=== PATIENT | male | born 1950 | race African-American/Black ===

== ENCOUNTER → 2017-02-17 | Outpatient (CLI) | payer OTHER ==
[~2017-02-17] VITALS: Ht 162.6 cm; Wt 108.9 kg
[~2017-02-17] MED LIST: ALBUTEROL2.5 MG/0.5 INH; AMBIEN 5 MG TABL5 M1 PO; ANTIVERT25 MG PO; BENAZEPRIL HCL20 MG PO; CALCIUM 500 +1 EAC5 PO; CALCIUM 600 +1 EA14 PO; KLOR-CON 1010 MEQ PO; MAGNESIUM OXID400 MG PO; NAPROSYN500 MG PO; PANTOPRAZOLE SO40 M1 PO; ROXICODONE5 M2 PO; SYMBICORT80 MCG/4.1 INH; TRAMADOL 50 MG50 MG PO; VOLTAREN GEL 1100 G1 TOP; XANAX 0.5 MG0.5 MG PO; ZANAFLEX4 MG PO; ZOLOFT50 MG PO
--- NOTE | ~2017-02-17 | HPC ---
[facility] [place] [address] PAIN MANAGEMENT CONSULTATION Name: BRYSON OLIVA JR [id number] Admission: 02/17/17 Attend Phys: Axel Serra DO Discharge: Date of : 51 Report #: [id number] THIS REPORT FOR: //name// CC: Roderick Serra DATE OF SERVICE: 02/18/2017 The patient is a very pleasant 66-year-old gentleman, prior seen in the pain clinic on 07/02/2016, given a cervical epidural injection at that time, prior had had injection in April. The patient was doing very well, greater than 80% overall relief, though pain has begun to recur. The neck, right shoulder and arm has some paresthesia going into his fingers. Physical exam shows a pleasant 66-year-old gentleman, modestly obese with a BMI of 41.2 kilograms per meter squared, complaining of aching, burning, radiating pain with numbness, tingling in his neck, shoulders, left greater than right arm. Pain is exacerbated if he turns his neck too quickly. Blood pressure is 158/76, pulse 76, respirations 14, exhibits a positive Lhermitte's and had slight decreased right deltoid, triceps and biceps strength. He is right hand dominant. I reviewed his MRI, which is a little older than 1 year, December 2015. Findings do show C4-C5 to have some disk space narrowing, moderate bilateral facet changes, bilateral neural foraminal narrowing; C5-C6 notes some posterior ridging and spurring with the AP diameter of the canal within normal limits, there is some bilateral neural foraminal narrowing here. Again, fairly nominal findings on the MRI, but ongoing cervical radicular symptoms. With concern we elected to repeat a cervical epidural injection today, get a new MRI of the cervical spine and at the patient's request I am referring him to Neurosurgeon, Dr. Luan Martinez at [facility] for discussion, consideration for decompressive laminectomy as indicated though again I see no dramatic findings as such. ASSESSMENT: Symptomatic cervical radiculopathy by clinical exam. PROCEDURE: Cervical epidural injection under fluoroscopy. PROCEDURE NOTE: After written and informed consent was obtained including risk of dural puncture, spinal cord trauma, paralysis and increased pain, the patient was taken to the fluoroscopy suite and placed in the prone position, with appropriate abdominal bolstering, neck was flexed, palms under the thighs. Skin was prepped with ChloraPrep. Sterile draping was applied. Skin wheal with 1% Xylocaine was raised. A 22-gauge 3-1/2 inch epidural Tuohy needle was placed via a midline approach at the C7-T1 interspace, advanced under biplanar fluoroscopy using continuous loss of resistance. With appropriate loss of [address] [address] PAIN MANAGEMENT CONSULTATION Name: BRYSON OLIVA Room #: REG [facility] Zachary#: [id number] Admission: 02/17/17 Attend Phys: Axel Serra DO Discharge: Date of : 51 Report #: [id number] resistance at the expected depth on lateral view, the glass loss of resistance syringe was disconnected. A low volume extension tubing was connected to the needle and a 5 mL syringe. Negative aspiration for cerebrospinal fluid or blood was noted. A 1 mL of Omnipaque was injected which showed spread within the epidural space on biplanar fluoroscopy. This was followed with 80 mg of triamcinolone plus 1 mL of 1.5% preservative Xylocaine. Needle was withdrawn to the interspinous ligament, 0.5 mL of Xylocaine was used to flush the needle. The needle was then completely withdrawn. The area was cleansed. Band-Aid was applied. The patient was allowed to move off the procedure table and ambulated to the recovery room, monitored for an appropriate period of time, discharged in good and stable condition. <ELECTRONICALLY SIGNED> By: Axel Serar DO 02/18/17 1138 [id number] [id number] Axel Serra DO /nt
[2017-02-17 13:09] VITALS: BP 158/76
== END ==
LOC: PAIN 07:04
DX: M54.12 Radiculopathy, cervical region (principal); E66.01 Morbid (severe) obesity due to excess calories; Z68.41 Body mass index [BMI] 40.0-44.9, adult; I10 Essential (primary) hypertension; F32.9 Major depressive disorder, single episode, unspecified; F17.210 Nicotine dependence, cigarettes, uncomplicated

== ENCOUNTER → 2017-08-26 | Outpatient (CLI) | payer OTHER ==
[~2017-08-26] VITALS: Ht 162.6 cm; Wt 102.1 kg
[~2017-08-26] MED LIST changes: +OXYCODONE HCL10 MG PO
--- NOTE | ~2017-08-26 | HPC ---
[facility] [address] [place] [address] PAIN MANAGEMENT CONSULTATION Name: BRYSON OLIVA JR Room #: REG [facility]#: [id number] Admission: 08/26/17 Attend Phys: Axel Serra DO Discharge: Date of : 51 Report #: [id number] THIS REPORT FOR: //name// CC: Roderick Serra DATE OF SERVICE: 08/26/2017 The patient is a pleasant 66-year-old gentleman, prior seen for cervical radiculopathy. He was given cervical epidural injections in 2015, last injection was in January of this year. I referred him to Dr. Luan Martinez for further evaluation. The patient returns to pain clinic today. Notes he has an appointment to see Dr. Luan Martinez at [facility] on 09/06/2017 but has developed acute right hip and thigh pain without specific antecedent trauma and overuse. He notes the right hip pain is fairly significant, rates it a 6-7 on VAS. Chronic left shoulder and arm pain remains problematic, specifically with abduction. No numbness in the fingers but does have paresthesia in the top of the hand. Pain primarily left lateral forearm in the lateral epicondyle. PHYSICAL EXAMINATION: Shows 66-year-old gentleman, BMI is 38.6 kilograms per meter squared. Vital signs stable as noted in the EMR. Cervical range of motion is modestly limited. Positive Lhermitte's pain with left abduction. Does have some diffuse tenderness over the lateral upper but no point tenderness compatible with lateral epicondylitis. Does not have pain with resistance to left hand extension. Rises from chair using armrest, modestly antalgic gait. Lumbar flexion is limited. Right hip flexion strength is diminished compared to the left, this exacerbates pain. Patellar reflex is nominally diminished. Achilles reflexes are symmetric. Straight leg raise negative. DIAGNOSTIC STUDIES: I reviewed the old lumbar spine somewhat dated from 01/10/2016, the patient has multilevel lumbar spondylosis, most prominent L3-L4 and L5-S1. L3-L4 notes moderate right and moderate to severe left facet arthrosis, the left foraminal disk protrusion. Symptoms correlate today with a right L3 radicular pattern. More concerning is the MRI of cervical spine, which was obtained 04/19/2017. This was a study, which prompted me to refer him to Dr. Martinez. There was still noting at T3-T4 with a focal rounded signal abnormality causing some cord contact and possibly slight deformity of the left to midline. This was thought to be possibly meningioma. He also had bilateral neural foraminal narrowing at C4-C5, a right-sided narrowing at C6-C7 contralateral to the patient's left cervical radicular symptoms. ASSESSMENT #1: Symptomatic cervical radiculopathy by clinical exam and history, [address] [address] PAIN MANAGEMENT CONSULTATION Name: BRYSON OLIVA JR Room #: REG [facility] Zachary#: [id number] Admission: 08/26/17 Attend Phys: Axel Serra DO Discharge: Date of : 51 Report #: [id number] neuropathic pain component, requiring complex medication management. RECOMMENDATION: We will renew oxycodone increased from 5 to 10 mg q. 8 hours, limit 30 tablets. The patient encouraged to use lowest possible dose. I strongly recommend he follow up with Dr. Luan Martinez at the 09/06/2017 appointment. ASSESSMENT #2: Acute exacerbation of lumbar radiculopathy, right L3 pattern. RECOMMENDATIONS: Epidural injection under fluoroscopy today, right of midline at L3-L4. Follow up 2 weeks after a neurosurgical appointment. PROCEDURE NOTE: Lumbar epidural injection under fluoroscopy. PROCEDURE NOTE: After both written and informed consent to include risk of spinal cord damage, increased pain, weakness and dural puncture, the patient was taken to the fluoroscopy suite, placed in the prone position. After sterile prep and drape, a skin wheal with lidocaine was raised. A 4-1/2-inch 20-gauge Tuohy needle was inserted in the midline at L3-L4 with good loss to resistance. Negative aspiration for cerebrospinal fluid or blood was noted. Then 1 mL of Omnipaque under biplanar fluoroscopy showed good spread within the epidural space. This was followed with 80 mg of triamcinolone plus 1 mL of 1.5% preservative-free Xylocaine, 0.5 mL Xylocaine was then injected to flush the needle; it was removed. The patient was monitored for an appropriate period of time and discharged in good and stable condition. By: [id number] Axel Serra, /nt
[2017-08-26 14:04] VITALS: BP 132/84
== END | disposition home or self-care (01) ==
LOC: PAIN 07:34
DX: M54.16 Radiculopathy, lumbar region (principal); M54.12 Radiculopathy, cervical region; Z68.38 Body mass index [BMI] 38.0-38.9, adult; F17.200 Nicotine dependence, unspecified, uncomplicated

== ENCOUNTER → 2017-09-16 | Outpatient (CLI) | payer OTHER ==
[~2017-09-16] VITALS: Ht 162.6 cm; Wt 102.1 kg
--- NOTE | ~2017-09-16 | HPC ---
[facility] [place] [address] PAIN MANAGEMENT CONSULTATION Name: BRYSON OLIVA JR [facility]: [facility] [id number] Admission: 09/16/17 Attend Phys: Axel Serra DO Discharge: Date of : 51 Report #: [id number] THIS REPORT FOR: //name// CC: Roderick Serra DATE OF SERVICE: 09/16/2017 DATE OF SERVICE: 09/16/2017 HISTORY OF PRESENT ILLNESS: The patient is a very pleasant 66-year-old gentleman typically treated for both cervical and lumbar radicular symptoms, requires high risk complex medication management. He was last seen in the pain clinic 08/26/2017. We were addressing lumbar issues at that time, patient had a single lumbar epidural injection at L3-L4 for right L3 radicular pain. He returns to pain clinic today noting that injection afforded very good relief, the patient notes 75% relief ongoing from the back and right leg pain. He does present with another complaint pain that being primarily neck, right shoulder and arm pain. We have addressed this in the past as well, in fact, the patient had cervical epidural injections in 2015, had a single cervical epidural injection in 01/2017 also with very good improvement of baseline pain. I did refer the patient to Dr. Luan Martinez for evaluation for a surgical opinion. Again, with both cervical and lumbar radicular symptoms, Dr. Martinez notes that the patient has had good relief with lumbar epidural injections for his radicular pain, he does have some narrowing at L4-L5 and L5-S1, but felt surgery could be eschewed at this time. Cervical radicular symptoms seemed to be fairly nominal at that presentation. Dr. Martinez had suggested as have I that he should consider lifestyle changes including smoking cessation and weight loss. Today, he is in the pain clinic noting ongoing pain, neck, right shoulder, arm. PHYSICAL EXAMINATION: Shows modestly positive Lhermitte's with pain going in the right shoulder, upper extremity strength is preserved. Cervical range of motion is modestly limited. DIAGNOSTIC STUDIES: Cervical MRI from 01/14/2016 does note cervical spondylosis, most severe at C4-C5, C5-C6 and C6-C7 with disk space narrowing at C6-C7. [address] [address] PAIN MANAGEMENT CONSULTATION Name: BRYSON OLIVA Room #: REG [facility] Zachary#: [id number] Admission: 09/16/17 Attend Phys: Axel Serra DO Discharge: Date of : 51 Report #: [id number] ASSESSMENT: 1. Symptomatic cervical radiculopathy by clinical exam and history. 2. Lumbar radiculopathy by history. 3. Complex medication management. Last visit, I provided the patient with a prescription for Oxycodone increased from 5 to 10 mg, limit 30 tablets. That prescription was 08/26/2017. He still has about half of those tablets left. Today, we did review an opiate consent to treat contract. I told the patient we will continue to provide medication for him, oxycodone 10 mg to be used on a nondaily basis. I did provide him with a prescription today for oxycodone 10 mg, dispensed 45 tablets, one tablet up to b.i.d. PROCEDURE: Cervical epidural steroid injection under fluoroscopy. PROCEDURE NOTE: After written and informed consent was obtained including risk of dural puncture, spinal cord trauma, paralysis and increased pain, the patient was taken to the fluoroscopy suite and placed in the prone position, with appropriate abdominal bolstering, neck was flexed, palms under the thighs. Skin was prepped with ChloraPrep. Sterile draping was applied. Skin wheal with 1% Xylocaine was raised. A 22-gauge 3-1/2 inch epidural Tuohy needle was placed via a midline approach at the C7-T1 interspace, advanced under biplanar fluoroscopy using continuous loss of resistance. With appropriate loss of resistance at the expected depth on lateral view, the glass loss of resistance syringe was disconnected. A low-volume extension tubing was connected to the needle and a 5 mL syringe. Negative aspiration for cerebrospinal fluid or blood was noted. A 1 mL of Omnipaque was injected which showed spread within the epidural space on biplanar fluoroscopy. This was followed with 80 mg of triamcinolone plus 1 mL of 1.5% preservative Xylocaine. Needle was withdrawn to the interspinous ligament, 0.5 mL of Xylocaine was used to flush the needle. The needle was then completely withdrawn. The area was cleansed. Band-Aid was applied. The patient was allowed to move off the procedure table and ambulated to the recovery room, monitored for an appropriate period of time, discharged in good and stable condition. <ELECTRONICALLY SIGNED> By: Axel Serra DO 09/19/17 0929 [id number] Axel Serra DO /nt
[2017-09-16 09:23] VITALS: BP 143/88
== END | disposition home or self-care (01) ==
LOC: PAIN 09-08 10:24
DX: M54.12 Radiculopathy, cervical region (principal); M54.16 Radiculopathy, lumbar region; Z79.891 Long term (current) use of opiate analgesic

== ENCOUNTER → 2017-11-02 | Outpatient (CLI) | payer OTHER ==
[~2017-11-02] VITALS: Ht 162.6 cm; Wt 103.4 kg
[~2017-11-02] MED LIST changes: +AMITRIPTYLINE H10 M3 PO
--- NOTE | ~2017-11-02 | HPC ---
[facility] [address] [place] [address] PAIN MANAGEMENT CONSULTATION Name: BRYSON OLIVA JR Room #: REG [facility]#: [id number] Admission: 11/02/17 Attend Phys: Aby Stinson MD Discharge: Date of : 51 Report #: [id number] THIS REPORT FOR: //name// CC: Aby Khan DATE OF SERVICE: 11/02/2017 FOLLOWUP HISTORY: The patient is a 67-year-old gentleman who has been seen in the pain clinic because of lumbar radiculopathy as well as cervical radiculopathy. He continues to be treated with a complex medication management. He returns today indicating that he had an epidural steroid injection, which was efficacious. At this juncture, he is having pain and discomfort, which is radiating down to the right low back area. He has returned today for an injection. He feels that past injections have been helpful and would like to proceed with another injection. PHYSICAL EXAMINATION: Blood pressure 123/73, pulse 81, respiratory rate 18, room air saturation is 94%. Height 5 feet 4 inches, weight 220 pounds, BMI is 39.1. The patient has pain and discomfort in the low back area with pain radiating down in the L4-L5 distribution. It involves his pain down into the right leg. He slept about 3 weeks ago as well as was pushing a heavy load while at work. This has caused his pain to flare up. He has a positive straight leg raise. Rates his pain as an 8/10 MEDICATIONS: Ambien 5 mg at bedtime, OxyIR 10 mg q.8h. p.r.n. as needed, meclizine 25 mg for vertigo, magnesium oxide 400 mg daily, calcium 600 mg b.i.d., potassium 10 mEq, Symbicort b.i.d., Lotensin 20 mg daily. IMPRESSION: 1. Lumbar radiculopathy with pain radiating down to the right L4-L5 distribution to the level of his knee 2. History of lumbar radiculopathy. 3. History of cervical radiculopathy. 4. Complex regional pain management program and affect. RECOMMENDATIONS: We discussed treatment options with the patient. At this juncture and after a detailed this explanation, we will proceed with an epidural steroid injection. Risks and benefits of the procedure were discussed with the patient. Possible complications of the procedure, which could include but are not limited to infection, increased muscle soreness, headache, bleeding and nerve trauma were discussed. The patient elects to proceed. PROCEDURE NOTE: The patient was placed in the [place] [address] PAIN MANAGEMENT CONSULTATION Name: BRYSON OLIVA [facility]: [facility] [id number] Admission: 11/02/17 Attend Phys: Aby Stinson MD Discharge: Date of : 51 Report #: [id number] used to identify the L4-L5 interspace. This area had been sterilely prepped with Betadine and infiltrated with 0.25% bupivacaine. Total of 80 mg Depo-Medrol, 40 mg triamcinolone and 2 mL of 0.25% bupivacaine was injected. The patient tolerated the procedure well. A total of 12 seconds fluoroscopy time was used. The patient's pain decreased to 2 at the time of discharge. He will follow up in the pain clinic as needed. We would like to thank you for letting us participate in his care. We hope he continues to improve. <ELECTRONICALLY SIGNED> By: Aby Stinson MD 11/10/17 0945 [id number] 1654 Aby Stinson MD /[facility]
[2017-11-02 09:15] VITALS: BP 123/73
== END | disposition home or self-care (01) ==
LOC: PAIN 07:09
DX: M54.16 Radiculopathy, lumbar region (principal); M54.12 Radiculopathy, cervical region; Z98.890 Other specified postprocedural states; F17.210 Nicotine dependence, cigarettes, uncomplicated; Z79.891 Long term (current) use of opiate analgesic; Z79.899 Other long term (current) drug therapy

== ENCOUNTER → 2017-12-22 | Outpatient (CLI) | payer OTHER ==
[~2017-12-22] VITALS: Ht 162.6 cm; Wt 105.1 kg
[~2017-12-22] MED LIST changes: +DILAUDID4 MG PO; +MEDROL DOSPAK21 TA1 PO; +PERCOCET 10-321 EACH PO; +VENTOLIN HFA 1818 GM INH
--- NOTE | ~2017-12-22 | HPC ---
[facility] [place] [address] PAIN MANAGEMENT CONSULTATION Name: BRYSON OLIVA JR [facility] [id number] Admission: 12/22/17 Attend Phys: Axel Serra DO Discharge: Date of : 51 Report #: [id number] THIS REPORT FOR: //name// CC: Roderick Serra The patient is a very pleasant 67-year-old gentleman who has been treated for symptomatic lumbar radiculopathy, component of cervical radiculopathy as well. Requires high risk complex medication management. He has had 3 epidural injections, 08/26/2017, 09/16/2017 and 11/02/2017. Ongoing lumbar radicular pain with specific symptoms radiating into the low back and right leg. I reviewed the MRI of the lumbar spine from 12/2015. He has moderate to severe right and severe left neural foraminal narrowing at L5-S1. He had seen Dr. Luan Martinez at [facility] who felt surgery may not have been indicated at that time. With ongoing radicular symptoms today, we talked about getting an EMG of the lower extremity. He seems to have ongoing pain and episodic weakness, which is concerning. PHYSICAL EXAMINATION: Shows a 67-year-old gentleman, BMI is elevated at 39.8 kilograms per meter squared. Vital signs are stable as noted in the EMR. Subjective pain is 4-5 on VAS but increases in the evening. He has not fallen in last 3 months, but he does have some problems with Vertigo. He takes meclizine p.r.n. Hypertensive, medicines were reconciled today. Chronic opiate consent to treat contract was signed 09/16/2017. Continue to smoke, was counseled regarding same. Comorbidities include history of hepatitis C, though well treated with Harvoni, history of cirrhosis contraindicating NSAID use. Moderately antalgic gait. Rises from chair using armrest. Diffuse tenderness across the low back, right leg. He has modestly positive straight leg raise and subtle decrease in strength, but not dramatic. The patient notes, however, episodically pain. The leg feels quite weak and he has actually nearly fallen several times. ASSESSMENT: Ongoing lumbar radiculopathies requiring complex medication management, concern for myelopathic symptoms, lower extremity. RECOMMENDATIONS: 1. EMG right lower extremity. 2. Continue baseline medication unchanged. We will rotate oxycodone to hydromorphone 4 mg b.i.d. (had been taking oxycodone 10 mg 1-2 at bedtime). We will trial a short course of Medrol Dosepak to help with the acute radicular symptoms. Follow up after the EMG for further evaluation. [address] [address] PAIN MANAGEMENT CONSULTATION Name: BRYSON OLIVA JR Room #: REG [facility]#: [id number] Admission: 12/22/17 Attend Phys: Axel Serra DO Discharge: Date of : 51 Report #: [id number] Discharged in good stable condition. <ELECTRONICALLY SIGNED> By: Axel Serra DO 12/26/17 0715 [id number] Axel Serra DO /nt
[2017-12-22 13:01] VITALS: BP 127/85
== END ==
LOC: PAIN 06:51
DX: M54.16 Radiculopathy, lumbar region (principal); M54.12 Radiculopathy, cervical region; Z79.899 Other long term (current) drug therapy

== ENCOUNTER → 2018-02-03 | Outpatient (CLI) | payer OTHER ==
[~2018-02-03] VITALS: Ht 162.6 cm; Wt 106.2 kg
--- NOTE | ~2018-02-03 | HPC ---
[facility] [address] [place] [address] PAIN MANAGEMENT CONSULTATION Name: BRYSON OLIVA JR Room #: REG [facility]#: [id number] Admission: 02/03/18 Attend Phys: Aby Stinson MD Discharge: Date of : 52 Report #: [id number] THIS REPORT FOR: //name// CC: Aby Khan DO DATE OF SERVICE: 02/03/2018 PRIMARY CARE PHYSICIAN: Roderick Khan DO FOLLOWUP COMPLAINT: Pain in the lower back down into the right hip and leg to the level of the knee. FOLLOWUP HISTORY: The patient is a 67-year-old gentleman who has been seen and followed in the Pain Clinic by Dr. Axel Serra. The patient has pain in the low back area, which radiates down into his leg. 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 He has undergone epidural steroid injections as well as cervical epidural steroid injections. He recently was out on the road. Had noted some worsening of his pain and discomfort. He finds that the pain is quite remarkable. Epidural steroid injections in the past in October were helpful. Because this pain has been so problematic, he returned to [place] for an additional injection. He rates the pain as a 4-5/10. Pain continues to increase as the day progresses. It involves his low back area with pain radiating into his right leg and down into his foot. He describes it as a stabbing pain with some numbness. Standing, lying down, turning, walking are problematic. He does drive an 18-chang. Sitting for a prolonged period of times exacerbates his discomfort. Denies any new bowel or bladder dysfunction. He feels that another injection would be helpful. ALLERGIES: NONSTEROIDAL ANTI-INFLAMMATORY MEDICATIONS AND ACETAMINOPHEN. CURRENT MEDICATIONS: 1. Dilaudid 4 mg 1 tablet at bedtime, 2100, may repeat if necessary. 2. Elavil 10 mg at bedtime. 3. Oxycodone IR 10 mg q. 8 hours p.r.n. 4. Ambien 5 mg at bedtime. 5. Antivert 25 mg as needed for vertigo. 6. Magnesium oxide daily. 7. Calcium. 8. Potassium 10 mEq. 9. Symbicort inhalation b.i.d. 10. Lotensin 20 mg daily. PAIN CLINIC ASSESSMENT: 1. History of osteoarthritis. The patient is not being treated for [facility] [address] [place] [address] PAIN MANAGEMENT CONSULTATION Name: BRYSON OLIVA JR Room #: REG [facility] Zachary#: [id number] Admission: 02/03/18 Attend Phys: Aby Stinson MD Discharge: Date of : 52 Report #: [id number] osteoarthritis or rheumatoid arthritis. 2. Height 5 feet 4 inches, weight 243 pounds, BMI is 40. 3. Vital signs: Blood pressure 139/85, pulse 95, respiratory rate 16, room air saturation 94%. 4. Pain intensity 4-5 with increasing pain as the evening progresses. 5. Risk of fall: The patient has not fallen in the last 3 months. He does have some diagnosis of vertigo. 6. Blood thinner: The patient is not on a blood thinner. 7. History of hypertension. The patient is being treated for hypertension. 8. Opioid contract: The patient does have an opioid contract with the Pain Clinic. 9. Risk assessment tool. 10. Functional assessment total. 11. Recreational drugs: The patient does not use recreational drugs. 12. Tobacco: The patient currently smokes tobacco, has been instructed that he would be better if he ceases smoking. 13. Alcohol: Denies frequent use of alcoholic beverages. PHYSICAL EXAMINATION: GENERAL: The patient is a well-developed, somewhat obese black male, appears his stated age. He is alert. ORIENTATION: The patient is alert and oriented x 3. AFFECT: His affect is appropriate. HEENT: Normocephalic, atraumatic. Extraocular eye muscles intact. NECK: Without adenopathy or bruits. CHEST: Lung sounds are distant. HEART: Regular rate. ABDOMEN: Protuberant. MUSCULOSKELETAL: Low back without significant kyphosis, scoliosis, or lordosis. EXTREMITIES: Upper extremity muscle strength 5/5. Lower extremities, the patient has pain and discomfort. Lower portion of his back, some right paraspinous muscle and left paraspinous muscle soreness. The patient has pain which is radiating down the posterior portion of his back in the distribution of the L4-L5 dermatomal area. IMPRESSION: 1. Lumbar radiculopathy with pain radiating down the L4-L5 distribution to the level of his knee and posterior portion of his leg going down into his foot. 2. History of lumbar radiculopathy. 3. History of cervical radiculopathy, stable at this juncture. 4. Complex regional pain management. RECOMMENDATIONS: We discussed treatment options with the patient. Risks and benefits of an epidural steroid injection were again reviewed. Possible complications were discussed. The patient elects to proceed. Due to the possibility of increased muscle soreness, bleeding, headache, muscle trauma, [facility] [address] [place] [address] PAIN MANAGEMENT CONSULTATION Name: BRYSON OLIVA JR Room #: REG [facility]AL[facility] Sharma#: [id number] Admission: 02/03/18 Attend Phys: Aby Stinson MD Discharge: Date of : 52 Report #: [id number] nerve trauma, and spinal headache were discussed. He agrees to proceed. PROCEDURE NOTE: The patient was assisted to getting on the examination table. His back was sterilely prepped with a Betadine solution. 0.25% bupivacaine was infiltrated into this area. Using anterior and posterior viewing with fluoroscopy, lateral viewing as well, the L4-L5 interspace was identified. A 17-gauge Tuohy with loss of resistance technique was used to gain access to the epidural space. There was no CSF, heme, or paresthesia. Total of 80 mg Depo-Medrol, 40 mg triamcinolone, and 2 mL of 0.25% bupivacaine was injected. The patient tolerated the procedure well. There were no complications. His pain decreased to 2-3 at the time of discharge. He will follow up in the future as needed. We would like to thank you for letting us participate in his care. We hope he continues to improve. <ELECTRONICALLY SIGNED> By: Aby Stinson MD 02/22/18 0816 [id number] 0149 Aby Stinson MD /nt
[2018-02-03 11:08] VITALS: BP 139/85
== END ==
LOC: PAIN 07:21
DX: M54.16 Radiculopathy, lumbar region (principal); G89.29 Other chronic pain; I10 Essential (primary) hypertension; M19.90 Unspecified osteoarthritis, unspecified site; F17.210 Nicotine dependence, cigarettes, uncomplicated; Z79.891 Long term (current) use of opiate analgesic; Z79.899 Other long term (current) drug therapy

== ENCOUNTER → 2018-02-20 | Outpatient (CLI) | payer OTHER ==
[~2018-02-20] VITALS: Ht 162.6 cm; Wt 107.0 kg
[~2018-02-20] MED LIST changes: -PERCOCET 10-321 EACH PO
--- NOTE | ~2018-02-20 | HPC ---
[facility] [place] [address] PAIN MANAGEMENT CONSULTATION Name: BRYOSN OLIVA JR [id number] Admission: 02/20/18 Attend Phys: Axel Serra DO Discharge: Date of : 52 Report #: [id number] THIS REPORT FOR: //name// CC: Roderick Serra DATE OF SERVICE: 02/20/2018 The patient is a pleasant 67-year-old gentleman typically treated by both Dr. Stinson and myself over a number of years for cervical and lumbar radicular pain. He had lumbar epidural injection with Dr. Stinson 02/03/2018 at L4-L5. He returns to pain clinic today for a prolonged visit. He was seen from 14:32 to approximately 15:05, greater than 50% of this 25+ minute visit was spent counseling the patient. He notes the injection afforded some 70% relief, but still has some ongoing pain if he walks for 2-5 minutes. 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 He unfortunately is sitting in his position of comfort; however, when he rises, he has pain in low back, right hip and gluteal area. Pain is exacerbated with standing and walking. Does note overall improvement following the injection. We had prior done a cervical epidural injection back in August for left cervical radicular symptoms which are somewhat recurring, although the presentation is a little unique. He states episodically he gets pain in the left elbow and left lateral forearm. It does not seem to be exacerbated by any particular activity, though he notes when driving, it does seem to be a little more problematic, but he had several episodes in the office. It is very transient and fleeting, has no weakness. We spent a prolonged period of time reviewing a very circuitous story. 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 I am not entirely certain that we were aware he was taking this agent. We tend to eschew concurrent use of soporific agents and opiates, though in the patient's case, it is clear that he does not take his opiates on a regular basis. He actually uses oxycodone fairly much on a p.r.n. basis, his last prescription for 45 oxycodone tablets 02/03/2018 (17 days ago, he has only used 10 tablets, he has 35 left). Prior prescription for hydromorphone 2 mg tablets, 60 tablets given 12/23/2017, now about 60 days ago, he still has 22 tablets left. He did stop taking Elavil as it caused him to feel hungover the following morning. He is very discouraged by the fact that his treating physician had stopped writing for his zolpidem. He did see Dr. Luan Martinez at [facility], he suggested no lumbar surgeries [address] [address] PAIN MANAGEMENT CONSULTATION Name: BRYSON OLIVA JR Room #: REG KAELYN Sharma#: [id number] Admission: 02/20/18 Attend Phys: Axel Serra DO Discharge: Date of : 52 Report #: [id number] required at this time; however, he did not evaluate for cervical radicular symptoms. PHYSICAL EXAMINATION: Today does show a 67-year-old gentleman, BMI is elevated at 40.5 kilograms per meter squared. Vital signs are generally stable as noted in the EMR. Subjective pain score is fairly nominal 2-3. Cervical range of motion is adequate. Upper extremity strength is generally preserved. Deep tendon reflexes are symmetric for the biceps, triceps, brachioradialis. Hand grasp is symmetric and Tinel's is negative. He does have subjective pain in the left lateral forearm. I cannot reproduce it. It does not appear to be lateral or medial epicondylitis. Rises from chair using armrest. Has a very significant endomorphic build and does have a fairly large ventral abdominal hernia, though appears to be a nonproblematic. Rises from chair using armrest. Gait is generally tandem. Lumbar flexion is limited. Has subjective pain in the right gluteal area. Modestly positive Joseph test on this side. Difficult to perform pelvic distraction due to girth, in fact difficult to perform Gaenslen's test due to rather robust abdominal girth. ASSESSMENT: Symptomatic lumbar radiculopathy by clinical exam and history, cervical radiculopathy by history, component of SI mediated pain in a gentleman with history of sleep apnea and sleep disorder. RECOMMENDATIONS: We will refer the patient to Dr. Butch Story for evaluation and the sleep study. May benefit from addition of Provigil and/or modafinil upon arising. 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 He is acutely aware of responsibilities of driving his truck and does not take any opiate analgesics within 6 hours of driving. He is very desirous of resuming zolpidem, though I told him I was not too enthused about prescribing this medication. Again, I will defer to Dr. Story as a sleep specialist. We did also order today an EMG of the left upper extremity. If there are any abnormal findings, we will refer back to Dr. Luan Martinez for consideration for surgical intervention. Otherwise, this may simply be a nuisance. The patient is not too enthusiastic about starting another agent (I mentioned a nerve stabilizing agent such as gabapentin). We have elected to renew hydromorphone 4 mg to be released in 1 week, he may take 1 tablet at bedtime if the pain disrupts sleep. I told him he can try going to sleep without this and he wakes in sleep, he can take it with caveat being it must be at least 4-6 hours prior to driving. [facility] [address] [place] [address] PAIN MANAGEMENT CONSULTATION Name: BRYSON OLIVA Room #: REG [facility]#: [id number] Admission: 02/20/18 Attend Phys: Axel Serra DO Discharge: Date of : 52 Report #: [id number] Discharged in stable condition after 25+ minute visit spent counseling the patient. By: [id number] Axel Serra DO /nt
[2018-02-20 14:02] VITALS: BP 129/90
== END ==
LOC: PAIN 07:24
DX: M54.16 Radiculopathy, lumbar region (principal); M54.12 Radiculopathy, cervical region; G47.30 Sleep apnea, unspecified

== ENCOUNTER → 2018-05-01 | Outpatient (CLI) | payer OTHER ==
[~2018-05-01] VITALS: Ht 162.6 cm; Wt 105.7 kg
[~2018-05-01] MED LIST changes: +PERCOCET 10-321 EACH PO
--- NOTE | ~2018-05-01 | HPC ---
[facility] [address] [place] [address] PAIN MANAGEMENT CONSULTATION Name: BRYSON OLIVA JR Room #: REG [facility] Zachary#: [id number] Admission: 05/01/18 Attend Phys: xAel Serra DO Discharge: Date of : 52 Report #: [id number] THIS REPORT FOR: //name// CC: Roderick Serra DATE OF SERVICE: 05/01/2018 HISTORY OF PRESENT ILLNESS: The patient is a 67-year-old gentleman being treated for chronic pain concerns including cervical and lumbar radicular issues. He has done well with occasional cervical and lumbar epidural injections, last lumbar injection was 02/03/2018. He had had 2 cervical epidural injections, 07/02/2016 and 09/16/2017. Last visit, 03/23/2018, we continued the patient on oxycodone 10 mg, dispensed #75 tablets, to take as needed for pain, limit 1-2 a day. Reviewing his medical record, he had started on oxycodone 5 mg back in early 2015. He was taking #20-30 tablets a month. Gradually, he started taking 2 at a time. I did write for 10 mg oxycodone around August 2017. He gradually started taking this a little more aggressively 1-2 at a time, so we rotated hydromorphone 4 mg trying to get a lower dose opiate. Ultimately, I have given him prescription for hydromorphone 4 mg #30 tablets at last visit and #75 of the oxycodone 10 mg. He has #10 of the hydromorphone left and #25 of the oxycodone left. He has ongoing multiple pain concerns. He complains of neck, left shoulder and arm pain. EMG was ultimately obtained, which by verbal report shows only carpal tunnel syndrome, left greater than right. No cervical radicular symptoms are noted. DIAGNOSTIC STUDIES: MRI of the cervical spine from 2017 had noted a small mass in the T3-T4 area, but really no dramatic left-sided radicular compromise was noted. Lumbar spine does note some significant narrowing at L5-S1, severe to moderate right and severe left neural foraminal stenosis. The patient tells me that he has had some "bowel incontinence," but on further reflection, he has no insensate incontinence per se. He states he has a sense of urgency and has normal bowel movements, but occasionally, notes that he still has a little stool right at the rectum. He has not had any "stool accidents." Similarly, he has no urinary incontinence (no insensate incontinence). He also tells me his left leg "gave out." On further discussion, he tells me he was standing, he went to step down off a curb stepping down with his left leg, he had a slight "give" and started to fall, a friend caught him. He was easily able to stand directly up and ambulate without weakness in the left leg. I do not think this is terribly neurologically significant. [address] [address] PAIN MANAGEMENT CONSULTATION Name: BRYSON OLIVA JR Room #: REG [facility] Sharma#: [id number] Admission: 05/01/18 Attend Phys: Axel Serra DO Discharge: Date of : 52 Report #: [id number] He does continue to smoke. He is an everyday smoker and he is morbidly obese with a BMI of 40 kilograms per meter squared. He was counseled regarding discontinue smoking and weight loss including dietary restriction and increased activity. PHYSICAL EXAMINATION: Notes a pleasant 67-year-old gentleman, BMI as noted is 40 kilograms per meter squared. Blood pressure is 152/85, pulse 74, respirations are 18. Alert and oriented to person, place, and time, judged to be a reasonable historian. Cervical range of motion is good. Upper extremity strength is preserved. Deep tendon reflexes are symmetric and 0-1/4. Tinel's is negative despite the EMG. Does have subjective paresthesia in the left hand with driving for any period of time. Rises from chair using armrest. Gait is tandem. Lower extremity strength is preserved. Straight leg raise negative. Has some diffuse axial back pain, no discrete trigger points noted. ASSESSMENT: Symptomatic chronic pain syndrome requiring complex medication management, history of cervical and lumbar radiculopathies, though really no acute radicular symptoms are noted at this time. RECOMMENDATIONS: I had a long discussion with the patient today about therapeutic options. He has a followup appointment scheduled with Dr. Hossein Swan to talk about sleep apnea concerns and swing shift type work with disruption of circadian rhythm. We again counseled the patient regarding smoking cessation. 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 He states he does not eat much throughout the day and then, he will start eating at 9 or 10:00 p.m. and admits to "binge" eating for hours. We talked about the utility of trying to eat 3 small meals a day, which may also help restore some of his circadian rhythm as well. Regarding opiate analgesics, we reviewed his slow opiate escalation over time. We elected to discontinue hydromorphone, he has about #10 tablets left. He can use these simply as needed. We will rotate back to oxycodone 10 mg utilizing only 1 tablet prior to exercise encouraging him to walk 20-30 minutes 3-4 times a week. He can use another tablet at bedtime if pain is quite severe. We will switch to Percocet 10/325 product hoping is a little synergy with the acetaminophen. I have written for Percocet 10/325, dispense #45 tablets with a 3-week release, have him follow up in 7 weeks with one of the Pain providers. I will be leaving the practice. Our goal is to wean off opiates, lose weight, discontinue smoking and hopefully, get the patient a little more functional overall. I told him if he has recurrence of radicular symptoms, we will be happy to evaluate for consideration for repeat lumbar or cervical epidural injection. [address] [address] PAIN MANAGEMENT CONSULTATION Name: BRYSON OLIVA [facility] [id number] Admission: 05/01/18 Attend Phys: Axel Serra DO Discharge: Date of : 52 Report #: [id number] Discharged in good stable condition. <ELECTRONICALLY SIGNED> By: Axel Serra DO 05/03/18 0800 [id number] [id number] Axel Serra DO /nt
[2018-05-01 12:32] VITALS: BP 152/85
== END ==
LOC: PAIN 07:22
DX: G89.29 Other chronic pain (principal); M54.5 Low back pain; M54.2 Cervicalgia; F11.90 Opioid use, unspecified, uncomplicated; F17.200 Nicotine dependence, unspecified, uncomplicated; Z79.899 Other long term (current) drug therapy

== ENCOUNTER → 2018-05-10 | Outpatient (CLI) | payer OTHER | LOC: RAD 15:11 | DX: J44.9 Chronic obstructive pulmonary disease, unspecified (principal) ==

== ENCOUNTER → 2018-10-06 | Outpatient (CLI) | payer OTHER ==
[~2018-10-06] VITALS: Ht 162.6 cm; Wt 116.3 kg
[~2018-10-06] MED LIST changes: +MOBIC15 MG PO
[2018-10-06 09:49] VITALS: BP 144/82
== END | disposition home or self-care (01) ==
LOC: PAIN 07:17
DX: M54.5 Low back pain (principal); F17.210 Nicotine dependence, cigarettes, uncomplicated; Z79.899 Other long term (current) drug therapy

== ENCOUNTER 2019-02-05 12:12 | Inpatient (IN) | payer OTHER ==
[~2019-02-05] VITALS: Ht 165.1 cm; Wt 111.1 kg
--- NOTE | ~2019-02-05 | HC ---
[facility] [place] [address] CONSULTATION Name: BRYSON OLIVA JR Room #: 218-P [facility] IN ..#: [id number] Admission: 02/05/19 ������������������ Attend Phys: Kaylene Lemus Discharge: ������������������ Date of : 52 Report #: [id number] THIS REPORT FOR: //name// CC: Kaylene Khan DATE OF SERVICE: 02/05/2019 PULMONARY CONSULTATION REFERRAL PHYSICIAN: Dr. Cardona. REASON FOR REFERRAL: Dyspnea. HISTORY OF PRESENT ILLNESS: The patient is a 68-year-old -[place] male who presents to the ED with shortness of breath and chest pain. A pulmonary consultation was requested. The patient is well known to this physician. He was last seen in the office in 07/2018. He has been followed for COPD/asthma overlap syndrome along with elevated IgE. His baseline FEV1 is 0.89 liter 48% predicted. He continues to smoke cigarettes, he has sleep apnea, on CPAP. States that he was in his usual state of health until for the past week or so, he has noticed increasing dyspnea. Denies any recent night sweats or chills, sore throat, productive cough. Recently, there was a in the family. More recently with worsening dyspnea, he used nebulized albuterol that his nephew uses. This resulted in chest discomfort. For that reason, he presented to the Emergency Room. He was just seen by Cardiology. It is felt that this chest pain is noncardiac in origin. Otherwise, no recent nausea, vomiting, diarrhea. PAST MEDICAL HISTORY: As mentioned above including cervical radiculopathy, lumbar radiculopathy, rheumatoid arthritis, tobacco abuse, COPD/asthma overlap syndrome, severe impairment as mentioned above, osteoarthritis. PAST SURGICAL HISTORY: Notable for laparotomy, cholecystectomy, prior shoulder surgery. ALLERGIES: NSAIDS, REACTIONS UNSPECIFIED. HOME MEDICATIONS: Reviewed. This include Percocet p.r.n., losartan, Symbicort [facility] [address] [place] [address] CONSULTATION Name: BRYSON OLIVA Room #: 218-P [facility]#: [id number] Admission: 02/05/19 ������������������ Attend Phys: Kaylene Lemus Discharge: ������������������ Date of : 51 Report #: [id number] 80 mcg 2 puffs twice a day, potassium supplements, calcium supplements, Antivert, Ventolin HFA. FAMILY HISTORY: Notable for both parents being , cause unknown. SOCIAL HISTORY: , continues to smoke one to half pack a day for the last 54 years. He denies any alcohol use. 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 REVIEW OF SYSTEMS: As mentioned above, otherwise 10-point system review negative. PHYSICAL EXAMINATION: GENERAL: He is awake, alert, in no distress. VITAL SIGNS: Temperature is 97 degrees Fahrenheit, pulse is 70, respiratory rate is 18, blood pressure 139/95 mmHg, saturation 98%. HEENT: Normocephalic, atraumatic. NECK: Supple without any lymphadenopathy or thyromegaly. CHEST: Breath sounds are good bilaterally with mild expiratory wheezes. CARDIOVASCULAR: Normal S1, S2. There are no murmurs or gallop. There is no JVD. There is no carotid bruit. Pulses are 2+/4+ bilaterally. ABDOMEN: Obese, soft, nontender, no organomegaly or masses felt. GENITOURINARY: Deferred. RECTAL: Deferred. EXTREMITIES: There is edema. No cyanosis or clubbing. LABORATORY AND DIAGNOSTIC DATA: Chest x-ray is clear with chronic linear atelectasis involving the left lower lobe. Troponin is minimally elevated at 0.06. Echocardiogram showed normal LV function, ejection fraction 55-60%, no significant valvular disease, pulmonary pressure not able to be measured. EKG shows no acute ischemic changes. Arterial blood gas revealed pH 7.39, pCO2 of 40, pO2 67 on room air. CBC is unremarkable. Electrolytes are unremarkable. IMPRESSION: 1. Progressive dyspnea in this 68-year-old -Belgian male, probably related to chronic obstructive pulmonary disease/asthma overlap syndrome, stress. 2. Chronic obstructive pulmonary disease/asthma overlap syndrome with exacerbation, baseline FEV1 of 0.89 liters, 48% predicted. 3. Elevated IgE as mentioned above. 4. Obstructive sleep apnea, on CPAP. The patient had been compliant with the use of CPAP. 5. Tobacco abuse. 6. History of rheumatoid arthritis, cervical and lumbar radiculopathy. 7. Morbid obesity with a BMI of 43, probable reflux. RECOMMENDATIONS: I would recommend pulse corticosteroid therapy, [address] [address] CONSULTATION Name: BRYSON OLIVA Room #: 218-P [facility] IN .R.#: [id number] Admission: 02/05/19 ������������������ Attend Phys: Kaylene Lemus Discharge: ������������������ Date of : 51 Report #: [id number] bronchodilators and broad spectrum antibiotics. DVT and GI prophylaxis recommended. Thank you for this consultation. ��������������������������������������������� ���������������������������������������� By: ��������������������������������������������� [id number] Hossein Swan MD /regino
[2019-02-05 12:12] VITALS: BP 126/78
[2019-02-05 12:41] LABS: HEMATOCRIT 41.4 % (42.0-52.0); HEMOGLOBIN 13.7 gm/dL (14.0-18.0); MCH 31.1 pg (26.0-34.0); MCV 94.3 fL (80.0-100.0); PLATELET COUNT 152 thou/uL (150-400); RBC 4.39 mil/uL (4.50-6.00); RDW 13.1 % (10.5-14.5); WBC 4.1 thou/uL (4.0-11.0)
[2019-02-05 12:51] LABS: CALCIUM 8.9 mg/dL (8.5-10.1); CREATININE 1.1 mg/dL (0.7-1.3); POTASSIUM 3.9 mmol/L (3.5-5.1)
[2019-02-05 12:59] LABS: TROPONIN-I 0.07 ng/mL (<0.06)
--- NOTE | 2019-02-05 13:17 | NUR ---
UPDATED DR GUEVARA ON ELEVATED TROPONIN
[2019-02-05 13:31] LABS: ABSOLUTE NEUTROPHILS 2.2 thou/uL (1.4-8.2)
--- NOTE | 2019-02-05 13:46 | NUR ---
ERP AT BEDSIDE
[2019-02-05 15:18] VITALS: BP 137/77
--- NOTE | 2019-02-05 15:47 | 2DMMODE ---
[facility] [place] [address] [place] [address] 2 D/M-MODE ECHOCARDIOGRAM Name: BRYSON OLIVA JR Room #: 170-9 ADM IN [facility].#: [id number] ������������� Admission: 02/05/19 ������������� Attend Phys: Kaylene Alvarado Discharge: ��� ������������� ��� Date of : 52 Date of Service: 02/05/19 1547 �� Report #: [id number] �������� ��������������������������������������������[id number] THIS REPORT FOR: //name// APPROVED REPORT Study performed: 02/05/2019 14:55:36 EXAM: Comprehensive 2D, Doppler, and color-flow Echocardiogram Patient Location: ER Room #: 9 Status: routine BSA: 2.16 HR: 74 bpm BP: 146/77 mmHg Rhythm: NSR Other Information Study Quality: Fair Technically limited study due to body habitus, lung disease, inability to position patient. Indications COPD Dyspnea Chest Pain Hypertension/HDD 2D Dimensions IVSd: 8.81 (7-11mm) LVOT Diam: 19.22 (18-24mm) LVDd: 56.52 mm PWd: 10.00 (7-11mm) Ascending Ao: 33.22 (22-36mm) LVDs: 41.95 (25-40mm) Aortic Root: 34.73 mm IVC: 21.00 mm Aortic Valve AoV Peak Carlitos.: 1.15 m/s AO Peak Gr.: 5.33 mmHg LVOT Max P.80 mmHg LVOT Max V: 0.97 m/s DAYSI Vmax: 2.45 cm2 Mitral Valve E/A Ratio: 0.8 MV Decel. Time: 275.14 ms MV E Max Carlitos.: 0.65 m/s MV A Carlitos.: 0.84 m/s [facility] [address] [place] [address] 2 D/M-MODE ECHOCARDIOGRAM Name: BRYSON OLIVA Room #: 1709 [facility] IN [facility]#: [id number] ������������� Admission: 02/05/19 ������������� Attend Phys: Kaylene Alvarado Discharge: ��� ������������� ��� Date of : 52 Date of Service: 02/05/19 1547 �� Report #: [id number] �������� ��������������������������������������������[id number] MV PHT: 79.79 ms IVRT: 119.95 ms Pulmonary Valve PV Peak Carlitos.: 0.90 m/s PV Peak Gr.: 3.32 mmHg Pulmonary Vein P Vein S: 0.51 m/s P Vein A: 0.30 m/s P Vein D: 0.33 m/s P Vein A Dur.: 96.9 msec P Vein S/D Ratio: 1.55 Left Ventricle The left ventricle is normal size. There is normal LV segmental wall motion. There is normal left ventricular wall thickness. The left ventricular systolic function is normal. The left ventricular ejection fraction is within the normal range. LVEF is 55-60%. Mild diastolic dysfunction is present (impaired relaxation pattern). Right Ventricle The right ventricle is normal size. The right ventricular systolic function is normal. Atria The left atrium size is normal. The right atrium size is normal. Aortic Valve The aortic valve is normal in structure. No aortic regurgitation is present. There is no aortic valvular stenosis. Mitral Valve The mitral valve is normal in structure. There is no mitral valve regurgitation noted. No evidence of mitral valve stenosis. Tricuspid Valve The tricuspid valve is normal in structure. There is no tricuspid valve regurgitation noted. Pulmonic Valve The pulmonary valve is normal in structure. There is no pulmonic valvular regurgitation. Great Vessels The aortic root is normal in size. IVC is dilated and collapses >50% with inspiration. [facility] [address] [place] [address] 2 D/M-MODE ECHOCARDIOGRAM Name: BRYSON OLIVA Room #: 170-9 [facility] IN ..#: [id number] ������������� Admission: 02/05/19 ������������� Attend Phys: Kaylene Alvarado Discharge: ��� ������������� ��� Date of : 52 Date of Service: 02/05/19 1547 �� Report #: [id number] �������� ��������������������������������������������[id number] Pericardium There is no pericardial effusion. <Conclusion> The left ventricular systolic function is normal. There is normal LV segmental wall motion. LVEF is 55-60%. Mild diastolic dysfunction The aortic valve is normal in structure. No aortic regurgitation or stenosis The mitral valve is normal in structure. No mitral valve regurgitation. Pulmonary artery pressure could not be reliably ascertained There is no pericardial effusion. ��������������������������������������������� <ELECTRONICALLY SIGNED> ���������������������������������������� By: Anirudh aCrdona MD, FACC ��������������������������������������������� 02/05/19 1547 [id number] Anirudh Cardona MD, FACC /INF
[2019-02-05 15:51] VITALS: BP 119/80
--- NOTE | 2019-02-05 16:26 | NUR ---
PT ORIENTED TO ROOM AND UNIT. BED LOW AND LOCKED, SIDE RAILS UPX 3, CALL LIGHT IN REACH. WILL CONTINUE TO ASSESS.
[2019-02-05 17:00] VITALS: BP 139/95
--- NOTE | 2019-02-05 17:12 | EKG ---
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1950 Requested By: Roderick Jennings Order Number: [id number] MD: Anirudh Cardona Measurements Intervals [place] Rate: 78 P: 46 [place]: 145 QRS: 3 QRSD: 95 T: 28 QT: 402 QTc: 458 Interpretive Statements Sinus rhythm Atrial premature complex Compared to ECG 08/01/2018 12:30:38 Atrial premature complex(es) now present Electronically Signed On 02-05-2019 17:12:33 CDT by Anirudh Cardona [email or web address] ��������������������������������������������� <ELECTRONICALLY SIGNED> ���������������������������������������� By: Anirudh Cardona MD, [facility] ��������������������������������������������� 02/05/19 1712 21 21 Anirudh Cardona MD, [facility] /EPI
[2019-02-05 17:18] LABS: BE(vivo) -0.7 mmol/L (-2 to +3); HCO3 24.1 mmol/L (22.0-26.0); PCO2 40.1 mmHg (35.0-45.0); PO2 67.9 mmHg (80.0-100.0); pH 7.396 (7.360-7.450); sO2 93.5 % (92.0-98.0)
--- NOTE | 2019-02-05 19:22 | NUR ---
BEDSIDE REPORT GIVEN RAY BILLINGS RN.
[2019-02-05 19:57] VITALS: BP 152/82
[2019-02-06 04:48] VITALS: BP 136/74
[2019-02-06 04:58] LABS: HEMATOCRIT 42.6 % (42.0-52.0); HEMOGLOBIN 13.9 gm/dL (14.0-18.0); MCH 30.8 pg (26.0-34.0); MCHC 32.7 g/dL (28.0-37.0); MCV 94.2 fL (80.0-100.0); RBC 4.52 mil/uL (4.50-6.00); RDW 13.3 % (10.5-14.5); WBC 4.7 thou/uL (4.0-11.0)
[2019-02-06 04:59] LABS: ANION GAP 10 mmol/L (7-16); BUN 14 mg/dL (7-18); CALCIUM 8.7 mg/dL (8.5-10.1); CHLORIDE 102 mmol/L (98-107); CHOLESTEROL 124 mg/dL (<200); CO2 25 mmol/L (21-32); CREATININE 1.1 mg/dL (0.7-1.3); GLUCOSE 166 mg/dL (74-106); HDL CHOLESTEROL 67 mg/dL (>40); LDL CHOLESTEROL 50 mg/dL (<100); POTASSIUM 4.4 mmol/L (3.5-5.1); SODIUM 137 mmol/L (136-145); TC:HDL 1.9 Ratio (Not establshd); TRIGLYCERIDE 37 mg/dL (<150); TROPONIN-I 0.06 ng/mL (<0.06); VLDL 7 mg/dL (<40)
[2019-02-06 05:01] LABS: SERUM ASSESSMENT Clear
--- NOTE | 2019-02-06 07:31 | NUR ---
ASSUMED PT CARE AT 1900 WITH NO SIGN OF DISTRESS NOTED IN PT. PT IS ALERT AND ORIENTED AND IS ON 2L NC. PT HAS CPAP FOR BEDTIME. SCHEDULED MEDS ADMINISTERED TO PT. PRN BREATHING TREATMENT ADMINISTERED NEEDED. VITAL SIGNS STABLE. NO SIGN OF DISTRESS NOTED, DENIES ANY FURTHER NEEDS AT THIS TIME.
[2019-02-06 07:42] VITALS: BP 148/92
--- NOTE | 2019-02-06 09:13 | EKG ---
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1950 Requested By: Arpita Morse Order Number: [id number] MD: Anirudh Cardona Measurements Intervals [place] Rate: 63 P: 51 UT: 166 QRS: 19 QRSD: 102 T: 27 QT: 432 QTc: 443 Interpretive Statements Sinus rhythm Atrial premature complexes Compared to ECG 02/05/2019 12:22:54 No significant changes Electronically Signed On 02-06-2019 9:13:35 CDT by Anirudh Cradona [email or web address] ��������������������������������������������� <ELECTRONICALLY SIGNED> ���������������������������������������� By: Anirudh Cardona MD, [facility] ��������������������������������������������� 02/06/19912 6 6 Anirudh Cardona MD, FACC /EPI
[2019-02-06] MEDS ORDERED: CEFUROXIME250 MG PO (09:30)
[2019-02-06] MEDS ORDERED: PREDNISONE 20 M20 MG PO (09:31)
[2019-02-06] MEDS ORDERED: XANAX 0.25 MG0.25 MG PO (09:32)
[2019-02-06 09:39] VITALS: BP 148/92
--- NOTE | 2019-02-06 10:40 | NUR ---
pt discharged [facility] via private vehicle. iv and tele discontinued.
== END 2019-02-06 10:30 | disposition home or self-care (01) | DRG 191 ==
LOC: ER 12:12 → 2N 14:21 → EROBS 14:21 → 2N 15:56
PROVIDERS: Emergency Medicine; Internal Medicine; Internal Medicine Pulmonary Disease; Nurse Practitioner; ADMIT Hospitalist
PROC: 5A09357 Assistance with Respiratory Ventilation, Less than 24 Consecutive Hours, Continuous Positive Airway Pressure (ICD-10-PCS; principal; 2019-02-06)
DX: J44.1 Chronic obstructive pulmonary disease with (acute) exacerbation (principal); Z68.41 Body mass index [BMI] 40.0-44.9, adult; E66.01 Morbid (severe) obesity due to excess calories; I10 Essential (primary) hypertension; M06.9 Rheumatoid arthritis, unspecified; J45.909 Unspecified asthma, uncomplicated; M19.90 Unspecified osteoarthritis, unspecified site; G47.33 Obstructive sleep apnea (adult) (pediatric); F17.210 Nicotine dependence, cigarettes, uncomplicated; F12.90 Cannabis use, unspecified, uncomplicated; Z86.19 Personal history of other infectious and parasitic diseases; Z79.1 Long term (current) use of non-steroidal anti-inflammatories (NSAID); Z90.49 Acquired absence of other specified parts of digestive tract; Z83.6 Family history of other diseases of the respiratory system; Z79.899 Other long term (current) drug therapy
CPT/HCPCS: 10081

== ENCOUNTER → 2019-02-16 | Outpatient (CLI) | payer OTHER ==
[~2019-02-16] VITALS: Ht 162.6 cm; Wt 114.3 kg
[~2019-02-16] MED LIST changes: +CEFUROXIME250 MG PO; +CHOLESTYRAMINE P4 GM PO; +PREDNISONE 20 M20 MG PO; +PRILOSEC 20 MG20 MG PO; +XANAX 0.25 MG0.25 MG PO; +ZOLPIDEM TARTRA10 MG PO
[2019-02-16 09:48] VITALS: BP 151/88
--- NOTE | 2019-02-16 09:49 | NUR ---
Pain Clinic Assessment: 1. History of Osteoarthritis: NO History of Rheumatoid Arthritis: NO 2. Height: 5 ft. 4 in. 162.6 cm. Weight: 252.0 lb. oz. 114.307 kg. Patient's BMI: 43.2 3. Vital Signs: BP: 151/88 Pulse: 103 Resp: 18 Temp: 02 Sat: 96 ECG Mon: 4. Pain Intensity: 6 5. Fall Risk: Dizziness: N Needs help standing or walking: N Fallen in the last 3 months: N Fall risk comments: FELL 2 MONTHS AGO DID NOT SEEK MEDICAL 6. Patient on Blood Thinner: None 7. History of Hypertension: Y 8. Opioid Therapy greater than 6 weeks: Y Opiate Contract Signed: 09/16/17 9. Risk Assessment Tool Provided: LOW-0 10. Functional Assessment Tool: 11. Recreational Drug Use: Never Drug Type: Tobacco Use: Never Smoker Tobacco Type: Amount or Packs/day: How Many Years: Alcohol Use: Yes Frequency: Quant:
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
== END | disposition home or self-care (01) ==
LOC: PAIN 12-20 06:48
DX: M54.16 Radiculopathy, lumbar region (principal); G89.29 Other chronic pain; M54.12 Radiculopathy, cervical region; I10 Essential (primary) hypertension; J44.9 Chronic obstructive pulmonary disease, unspecified; K21.9 Gastro-esophageal reflux disease without esophagitis; Z98.890 Other specified postprocedural states; Z79.899 Other long term (current) drug therapy; Z86.19 Personal history of other infectious and parasitic diseases; Z79.891 Long term (current) use of opiate analgesic; Z88.8 Allergy status to other drugs, medicaments and biological substances

== ENCOUNTER 2019-03-14 15:03 | Emergency (ER) | payer OTHER ==
[~2019-03-14] VITALS: Ht 165.1 cm; Wt 109.3 kg
[~2019-03-14 15:03] MED LIST changes: -PRILOSEC 20 MG20 MG PO
[2019-03-14 15:38] LABS: HEMATOCRIT 43.9 % (42.0-52.0); HEMOGLOBIN 14.4 gm/dL (14.0-18.0); MCH 31.6 pg (26.0-34.0); MCHC 32.9 g/dL (28.0-37.0); MCV 96.2 fL (80.0-100.0); PLATELET COUNT 150 thou/uL (150-400); RBC 4.57 mil/uL (4.50-6.00); RDW 14.3 % (10.5-14.5); WBC 4.2 thou/uL (4.0-11.0)
[2019-03-14 15:47] LABS: ANION GAP 8 mmol/L (7-16); BUN 7 mg/dL (7-18); CALCIUM 9.5 mg/dL (8.5-10.1); CHLORIDE 102 mmol/L (98-107); CO2 28 mmol/L (21-32); GLUCOSE 95 mg/dL (74-106); POTASSIUM 3.9 mmol/L (3.5-5.1); SODIUM 138 mmol/L (136-145)
[2019-03-14 15:56] LABS: ABSOLUTE NEUTROPHILS 2.9 thou/uL (1.4-8.2); PLATELET ESTIMATE NORMAL
[2019-03-14 15:58] LABS: ALBUMIN 3.8 g/dL (3.4-5.0); MAGNESIUM 1.9 mg/dL (1.8-2.4); SGOT 35 U/L (15-37); SGPT 54 U/L (30-65); TOTAL BILIRUBIN 0.8 mg/dL (<0.1-1.0); TOTAL PROTEIN 7.5 g/dL (6.4-8.2); TROPONIN-I <0.06 ng/mL (<0.06)
[2019-03-14] MEDS ORDERED: PRILOSEC 20 MG20 MG PO (17:16)
[2019-03-14 17:35] VITALS: BP 117/99
--- NOTE | 2019-03-15 09:41 | EKG ---
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1950 Requested By: Amadeo Humphries Order Number: [id number] MD: Anirudh Cardona Measurements Intervals [place] Rate: 78 P: 38 UT: 135 QRS: -7 QRSD: 92 T: 25 QT: 438 QTc: 499 Interpretive Statements Sinus rhythm Supraventricular bigeminy Baseline wander in lead(s) II,III,aVF Compared to ECG 02/06/2019 07:17:50 No significant changes Electronically Signed On 03-15-2019 9:41:01 CDT by Anirudh Cardona [email or web address] ��������������������������������������������� <ELECTRONICALLY SIGNED> ���������������������������������������� By: Anirudh Cardona MD, [facility] ��������������������������������������������� 03/15/19 0941 [id number] Anirudh Cardona MD, [facility] /EPI
== END 2019-03-14 17:57 | disposition home or self-care (01) ==
LOC: ER 15:03
PROVIDERS: Emergency Medicine
DX: K21.0 Gastro-esophageal reflux disease with esophagitis (principal); I10 Essential (primary) hypertension; J44.9 Chronic obstructive pulmonary disease, unspecified; F17.210 Nicotine dependence, cigarettes, uncomplicated; Z86.19 Personal history of other infectious and parasitic diseases; Z88.6 Allergy status to analgesic agent

== ENCOUNTER → 2019-03-14 | Outpatient (CLI) | payer OTHER ==
[~2019-03-14] VITALS: Ht 162.6 cm; Wt 109.2 kg
[2019-03-14 13:26] VITALS: BP 144/82
--- NOTE | 2019-03-14 13:42 | NUR ---
Pain Clinic Assessment: 1. History of Osteoarthritis: NO History of Rheumatoid Arthritis: NO 2. Height: 5 ft. 4 in. 162.6 cm. Weight: 240.8 lb. oz. 109.226 kg. Patient's BMI: 41.3 3. Vital Signs: BP: 144/82 Pulse: 51 Resp: 16 Temp: 02 Sat: 100 ECG Mon: 4. Pain Intensity: 6 5. Fall Risk: Dizziness: Y Needs help standing or walking: N Fallen in the last 3 months: N Fall risk comments: FELL 2 MONTHS AGO DID NOT SEEK MEDICAL 6. Patient on Blood Thinner: None 7. History of Hypertension: Y 8. Opioid Therapy greater than 6 weeks: Y Opiate Contract Signed: 09/16/17 9. Risk Assessment Tool Provided: LOW-0 10. Functional Assessment Tool: 11. Recreational Drug Use: Never Drug Type: Tobacco Use: Current Every Day Smoker Tobacco Type: Cigarettes Amount or Packs/day: 9-11 CIGS How Many Years: Alcohol Use: Yes Frequency: Daily Quant: 2
[2019-03-14 14:55] VITALS: BP 149/67
== END ==
LOC: PAIN 07:16
DX: G89.29 Other chronic pain (principal); M54.5 Low back pain; M25.552 Pain in left hip; J44.9 Chronic obstructive pulmonary disease, unspecified; I10 Essential (primary) hypertension; F17.210 Nicotine dependence, cigarettes, uncomplicated; Z79.891 Long term (current) use of opiate analgesic

== ENCOUNTER → 2019-03-14 | Outpatient (CLI) | payer OTHER | LOC: RAD 12:10 | DX: R06.02 Shortness of breath (principal); Z88.8 Allergy status to other drugs, medicaments and biological substances ==

== ENCOUNTER → 2019-03-21 | Outpatient (CLI) | payer OTHER ==
[~2019-03-21] VITALS: Ht 165.1 cm; Wt 109.2 kg
[~2019-03-21] MED LIST changes: +PRILOSEC 20 MG20 MG PO; +PROTONIX40 M1 PO
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
[2019-03-21 11:25] VITALS: BP 144/91
--- NOTE | 2019-03-21 11:33 | NUR ---
Pain Clinic Assessment: 1. History of Osteoarthritis: NO History of Rheumatoid Arthritis: NO 2. Height: 5 ft. 5 in. 165.1 cm. Weight: 240.8 lb. oz. 109.226 kg. Patient's BMI: 40.1 3. Vital Signs: BP: 144/91 Pulse: 90 Resp: 18 Temp: 02 Sat: 97 ECG Mon: 4. Pain Intensity: 4-5 5. Fall Risk: Dizziness: N Needs help standing or walking: N Fallen in the last 3 months: N Fall risk comments: FELL 2 MONTHS AGO DID NOT SEEK MEDICAL 6. Patient on Blood Thinner: None 7. History of Hypertension: Y 8. Opioid Therapy greater than 6 weeks: Y Opiate Contract Signed: 09/16/17 9. Risk Assessment Tool Provided: LOW-0 10. Functional Assessment Tool: 11. Recreational Drug Use: Current within past 3 mos Drug Type: MARIJUANA Tobacco Use: Current Every Day Smoker Tobacco Type: Cigarettes Amount or Packs/day: 10 CIGS How Many Years: 55 Alcohol Use: Yes Frequency: Daily Quant: 1-2
== END | disposition home or self-care (01) ==
LOC: PAIN 07:12
DX: M54.16 Radiculopathy, lumbar region (principal); G89.29 Other chronic pain; M54.12 Radiculopathy, cervical region; I10 Essential (primary) hypertension; J44.9 Chronic obstructive pulmonary disease, unspecified; K21.0 Gastro-esophageal reflux disease with esophagitis; F17.210 Nicotine dependence, cigarettes, uncomplicated; Z79.899 Other long term (current) drug therapy; Z86.19 Personal history of other infectious and parasitic diseases; Z98.890 Other specified postprocedural states; Z88.6 Allergy status to analgesic agent

== ENCOUNTER → 2019-05-03 | Outpatient (CLI) | payer OTHER | LOC: RAD 13:39 | DX: J98.4 Other disorders of lung (principal) ==

== ENCOUNTER → 2019-06-13 | Outpatient (CLI) | payer OTHER ==
[~2019-06-13] VITALS: Ht 162.6 cm; Wt 106.2 kg
[~2019-06-13] MED LIST changes: +DILAUDID 4 MG TA4 M1 PO
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
[2019-06-13 11:10] VITALS: BP 152/92
--- NOTE | 2019-06-13 11:17 | NUR ---
Pain Clinic Assessment: 1. History of Osteoarthritis: NO History of Rheumatoid Arthritis: NO 2. Height: 5 ft. 4 in. 162.6 cm. Weight: 234.2 lb. oz. 106.233 kg. Patient's BMI: 40.2 3. Vital Signs: BP: 152/92 Pulse: 52 Resp: 16 Temp: 02 Sat: 98 ECG Mon: 4. Pain Intensity: 7-8 5. Fall Risk: Dizziness: N Needs help standing or walking: N Fallen in the last 3 months: N Fall risk comments: FELL 2 MONTHS AGO DID NOT SEEK MEDICAL 6. Patient on Blood Thinner: None 7. History of Hypertension: Y 8. Opioid Therapy greater than 6 weeks: Y Opiate Contract Signed: 09/16/17 9. Risk Assessment Tool Provided: LOW-0 10. Functional Assessment Tool: 11. Recreational Drug Use: Never Drug Type: Tobacco Use: Current Every Day Smoker Tobacco Type: Cigarettes Amount or Packs/day: 1 PACK How Many Years: Alcohol Use: Yes Frequency: Daily Quant: 2
== END | disposition home or self-care (01) ==
LOC: PAIN 06:53
DX: M54.16 Radiculopathy, lumbar region (principal); M54.12 Radiculopathy, cervical region; I10 Essential (primary) hypertension; J44.9 Chronic obstructive pulmonary disease, unspecified; R42 Dizziness and giddiness; F17.210 Nicotine dependence, cigarettes, uncomplicated; Z79.899 Other long term (current) drug therapy; Z98.890 Other specified postprocedural states; Z88.8 Allergy status to other drugs, medicaments and biological substances

== ENCOUNTER → 2019-08-09 | Outpatient (CLI) | payer OTHER | LOC: RAD 11:21 | DX: J44.1 Chronic obstructive pulmonary disease with (acute) exacerbation (principal); J98.4 Other disorders of lung; Z88.8 Allergy status to other drugs, medicaments and biological substances ==

== ENCOUNTER → 2019-08-22 | Outpatient (CLI) | payer OTHER ==
[~2019-08-22] VITALS: Ht 165.1 cm; Wt 105.1 kg
[~2019-08-22] MED LIST changes: +ALBUTEROL2.5 MG/31 INH; -MAGNESIUM OXID400 MG PO; +MAGOX 400400 MG PO; +MELOXICAM15 MG PO; +TIZANIDINE HCL2 M1 PO; +TRAZODONE HCL50 MG PO
[2019-08-22 13:08] VITALS: BP 149/91
--- NOTE | 2019-08-22 13:28 | NUR ---
Pain Clinic Assessment: 1. History of Osteoarthritis: NO History of Rheumatoid Arthritis: NO 2. Height: 5 ft. 5 in. 165.1 cm. Weight: 231.6 lb. oz. 105.053 kg. Patient's BMI: 38.5 3. Vital Signs: BP: 149/91 Pulse: 95 Resp: 20 Temp: 02 Sat: 98 ECG Mon: 4. Pain Intensity: 7-8 5. Fall Risk: Dizziness: N Needs help standing or walking: N Fallen in the last 3 months: N Fall risk comments: FELL 2 MONTHS AGO DID NOT SEEK MEDICAL 6. Patient on Blood Thinner: None 7. History of Hypertension: Y 8. Opioid Therapy greater than 6 weeks: Y Opiate Contract Signed: 09/16/17 9. Risk Assessment Tool Provided: LOW-0 10. Functional Assessment Tool: 11. Recreational Drug Use: Never Drug Type: Tobacco Use: Current Every Day Smoker Tobacco Type: Amount or Packs/day: How Many Years: Alcohol Use: Yes Frequency: Quant:
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
== END | disposition home or self-care (01) ==
LOC: PAIN 07:18
DX: M54.16 Radiculopathy, lumbar region (principal); M54.12 Radiculopathy, cervical region; I10 Essential (primary) hypertension; J44.9 Chronic obstructive pulmonary disease, unspecified; Z79.899 Other long term (current) drug therapy; F17.210 Nicotine dependence, cigarettes, uncomplicated; Z88.8 Allergy status to other drugs, medicaments and biological substances

== ENCOUNTER 2019-09-14 12:43 | Emergency (ER) | payer OTHER ==
[~2019-09-14 12:43] MED LIST changes: -TIZANIDINE HCL2 M1 PO
[2019-09-14 12:46] VITALS: BP 145/92
[2019-09-14] MEDS ORDERED: TRAMADOL 50 MG50 MG PO ×2 (14:25→14:26)
[2019-09-14] MEDS ORDERED: TIZANIDINE HCL2 M1 PO ×2 (14:25→14:26)
--- NOTE | 2019-09-15 11:02 | EKG ---
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1950 Requested By: Beth Naidu Order Number: [id number] MD: Anirudh Cardona Measurements Intervals [place] Rate: 91 P: 71 MO: 135 QRS: 6 QRSD: 87 T: 28 QT: 349 QTc: 430 Interpretive Statements Sinus rhythm Ventricular premature complex Compared to ECG 03/14/2019 14:57:15 Ventricular premature complex(es) now present Atrial premature complex(es) no longer present Electronically Signed On 09-15-2019 11:02:18 CDT by Anirudh Cardona [email or web address] <ELECTRONICALLY SIGNED> By: Anirudh Cardona MD, [facility] 09/15/19 1102 1254 1254 Anirudh Cardona MD, FAC /EPI
[2019-10-03] MEDS ORDERED: DILAUDID 4 MG TA4 M1 PO (10:51)
== END 2019-09-14 13:18 | disposition left against medical advice (07) ==
LOC: ER 12:43
DX: Z53.21 Procedure and treatment not carried out due to patient leaving prior to being seen by health care provider (principal)

== ENCOUNTER → 2019-09-14 | Outpatient (CLI) | payer OTHER ==
[~2019-09-14] VITALS: Ht 165.1 cm; Wt 104.8 kg
[2019-09-14 13:30] VITALS: BP 151/78
--- NOTE | 2019-09-14 13:33 | NUR ---
Pain Clinic Assessment: 1. History of Osteoarthritis: NO History of Rheumatoid Arthritis: NO 2. Height: 5 ft. 5 in. 165.1 cm. Weight: 231.0 lb. oz. 104.781 kg. Patient's BMI: 38.4 3. Vital Signs: BP: 151/78 Pulse: 81 Resp: 16 Temp: 02 Sat: 98 ECG Mon: 4. Pain Intensity: 7-8 5. Fall Risk: Dizziness: Y Needs help standing or walking: N Fallen in the last 3 months: N Fall risk comments: FELL 2 MONTHS AGO DID NOT SEEK MEDICAL 6. Patient on Blood Thinner: None 7. History of Hypertension: Y 8. Opioid Therapy greater than 6 weeks: Y Opiate Contract Signed: 09/16/17 9. Risk Assessment Tool Provided: LOW-0 10. Functional Assessment Tool: 11. Recreational Drug Use: Never Drug Type: Tobacco Use: Current Every Day Smoker Tobacco Type: Amount or Packs/day: How Many Years: Alcohol Use: Yes Frequency: Quant:
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
== END ==
LOC: PAIN 07:14
DX: M54.12 Radiculopathy, cervical region (principal); M54.16 Radiculopathy, lumbar region; J44.9 Chronic obstructive pulmonary disease, unspecified; R42 Dizziness and giddiness; I10 Essential (primary) hypertension; Z87.891 Personal history of nicotine dependence

== ENCOUNTER → 2019-09-18 | Outpatient (CLI) | payer OTHER ==
[~2019-09-18] VITALS: Ht 165.1 cm; Wt 102.6 kg
[~2019-09-18] MED LIST changes: +TIZANIDINE HCL2 M1 PO
[2019-09-18 12:39] VITALS: BP 154/96
== END ==
LOC: MRI 11:09
DX: M47.26 Other spondylosis with radiculopathy, lumbar region (principal); M41.86 Other forms of scoliosis, lumbar region; M48.061 Spinal stenosis, lumbar region without neurogenic claudication; M51.16 Intervertebral disc disorders with radiculopathy, lumbar region; M47.817 Spondylosis without myelopathy or radiculopathy, lumbosacral region; M25.78 Osteophyte, vertebrae
CPT/HCPCS: 62110; 62900; 70005

== ENCOUNTER 2019-09-27 20:57 | Emergency (ER) | payer OTHER ==
[~2019-09-27] VITALS: Ht 165.1 cm; Wt 104.3 kg
[2019-09-27 21:41] LABS: ABSOLUTE NEUTROPHILS 3.4 thou/uL (1.4-8.2); PLATELET COUNT 172 thou/uL (150-400); RBC 4.44 mil/uL (4.50-6.00); RDW 13.8 % (10.5-14.5)
[2019-09-27 21:43] LABS: BASOPHILS 1.2 % (0.0-2.0); EOSINOPHILS 0.9 % (0.0-3.0); HEMATOCRIT 43.6 % (42.0-52.0); HEMOGLOBIN 14.3 gm/dL (14.0-18.0); MCH 32.2 pg (26.0-34.0); MCHC 32.7 g/dL (28.0-37.0); MCV 98.3 fL (80.0-100.0); POLYS 71.9 % (36.0-66.0); WBC 4.7 thou/uL (4.0-11.0)
[2019-09-27 22:23] LABS: ALBUMIN 3.2 g/dL (3.4-5.0); ANION GAP 9 mmol/L (7-16); BUN 17 mg/dL (7-18); CALCIUM 8.4 mg/dL (8.5-10.1); CHLORIDE 99 mmol/L (98-107); CO2 27 mmol/L (21-32); GLUCOSE 87 mg/dL (74-106); POTASSIUM 3.9 mmol/L (3.5-5.1); SGOT 31 U/L (15-37); SGPT 34 U/L (30-65); SODIUM 135 mmol/L (136-145); TOTAL BILIRUBIN 0.8 mg/dL (<0.1-1.0); TOTAL PROTEIN 6.9 g/dL (6.4-8.2); TROPONIN-I <0.06 ng/mL (<0.06)
[2019-09-27 23:10] LABS: URINE BILIRUBIN NEGATIVE (Negative); URINE BLOOD NEGATIVE (Negative); URINE CLARITY CLEAR; URINE COLOR YELLOW; URINE GLUCOSE-RANDOM* NEGATIVE (Negative); URINE KETONES NEGATIVE (Negative); URINE LEUKOCYTES-REFLEX NEGATIVE (Negative); URINE NITRITE-REFLEX NEGATIVE (Negative); URINE PROTEIN (DIPSTICK) NEGATIVE (Negative); URINE UROBILINOGEN 0.2 E.U./dl (0.2-1.0)
[2019-09-28 00:06] VITALS: BP 156/85
--- NOTE | 2019-09-28 12:28 | EKG ---
[place] [address] 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[facility] : 1950 Requested By: Nany Champion Order Number: [id number] MD: Missael Tinoco Measurements Intervals [place] Rate: 101 P: 57 ND: 142 QRS: -11 QRSD: 90 T: 30 QT: 348 QTc: 452 Interpretive Statements Sinus tachycardia Probable left atrial enlargement Low voltage, precordial leads Compared to ECG 09/14/2019 12:54:13 Low QRS voltage now present Sinus rhythm no longer present Ventricular premature complex(es) no longer present Electronically Signed On 09-28-2019 12:27:44 BILINGUAL MEDICAL ASSISTANT by Missael Tinoco [email or web address] <ELECTRONICALLY SIGNED> By: Missael Tinoco MD 09/28/19 1227 08 08 Missael Tinoco MD /EPI
[2019-10-03] MEDS ORDERED: DILAUDID 4 MG TA4 M1 PO (10:51)
== END 2019-09-28 00:07 | disposition home or self-care (01) ==
LOC: ER 20:57
PROVIDERS: Emergency Medicine; Nurse Practitioner Family
DX: J06.9 Acute upper respiratory infection, unspecified (principal); I10 Essential (primary) hypertension; R07.9 Chest pain, unspecified; E66.9 Obesity, unspecified; J44.9 Chronic obstructive pulmonary disease, unspecified; G47.30 Sleep apnea, unspecified; F32.9 Major depressive disorder, single episode, unspecified; F17.210 Nicotine dependence, cigarettes, uncomplicated; Z68.38 Body mass index [BMI] 38.0-38.9, adult; Z90.49 Acquired absence of other specified parts of digestive tract; Z88.8 Allergy status to other drugs, medicaments and biological substances

== ENCOUNTER → 2019-10-03 | Outpatient (CLI) | payer OTHER ==
[~2019-10-03] VITALS: Ht 165.1 cm; Wt 105.4 kg
[2019-10-03 09:52] VITALS: BP 145/98
--- NOTE | 2019-10-03 10:08 | NUR ---
Pain Clinic Assessment: 1. History of Osteoarthritis: NO History of Rheumatoid Arthritis: NO 2. Height: 5 ft. 5 in. 165.1 cm. Weight: 232.4 lb. oz. 105.416 kg. Patient's BMI: 38.7 3. Vital Signs: BP: 145/98 Pulse: 108 Resp: 16 Temp: 02 Sat: 97 ECG Mon: 4. Pain Intensity: 7-8 5. Fall Risk: Dizziness: Y Needs help standing or walking: N Fallen in the last 3 months: N Fall risk comments: FELL 2 MONTHS AGO DID NOT SEEK MEDICAL 6. Patient on Blood Thinner: None 7. History of Hypertension: Y 8. Opioid Therapy greater than 6 weeks: Y Opiate Contract Signed: 09/16/17 9. Risk Assessment Tool Provided: LOW-0 10. Functional Assessment Tool: 11. Recreational Drug Use: Past greater than 3 mos Drug Type: Tobacco Use: Current Every Day Smoker Tobacco Type: Cigarettes Amount or Packs/day: 7-8 cig/day How Many Years: 56 Alcohol Use: Yes Frequency: Daily Quant: 1
--- NOTE | 2019-10-04 14:00 | HPC ---
[facility] [place] [address] PAIN MANAGEMENT CONSULTATION Name: BRYSON OLIVA [facility]: [facility] [id number] Admission: 10/03/19 Attend Phys: Judie Melendez Discharge: Date of : 52 Report #: [id number] THIS REPORT FOR: //name// CC: Judie Melendez [facility] DATE OF SERVICE: 10/03/2019 CHIEF COMPLAINT: Chronic low back pain and left lower extremity pain. HISTORY OF PRESENT ILLNESS: This is a 69-year-old gentleman who returns to the pain clinic today for discussion about his medications and treatment options. He reports that his pain score is a 7-8/10 in the middle of his lumbar spine as well as his left hip and radiates into his left thigh, is a stinging and burning feeling that is worse with any activity and walking. 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 He feels that his hydromorphone has been beneficial as well as periodic injections, but unfortunately they are not lasting very long since he does need to return to work fairly quickly after obtaining them. The patient does report he has seen Dr. Mcgovern on the to discuss possible surgery. He also reports he has not started the tramadol or tizanidine that Dr. Kenny Stinson prescribed for him at his last visit here. He has been to the Emergency Room several times for various cardiac and health issues. He does have an appointment with Dr. Ying this afternoon to discuss his ongoing health problems. ALLERGIES: NONSTEROIDAL ANTI-INFLAMMATORIES. CURRENT LIST OF MEDICATIONS: Tramadol 50 mg p.r.n., tizanidine 2 mg p.r.n., hydromorphone 4 mg b.i.d., meloxicam p.o. daily, Voltaren gel as needed, trazodone 50 mg at bedtime, cholestyramine packets daily, Ambien p.r.n., magnesium, potassium, Symbicort, and Lotensin 20 mg daily. PQRS: 1. He has some arthritic changes in his neck and his lumbar spine. He is not being treated for rheumatoid arthritis. 2. Height is 5 feet 5 inches, weight is 232, BMI is 38. 3. 145/98, pulse is 108, respirations 16, oxygen is 97. 4. Pain score is 7 to 8. 5. Complains of dizziness, does not need help walking or standing, has not fallen in the last 3 months. 6. The patient is not on any blood thinners, but does have history of hypertension, on medications. 7. Opiate therapy is greater than 6 weeks; therefore, [place] [address] PAIN MANAGEMENT CONSULTATION Name: BRYSON OLIVA JR Room #: REG KAELYN Sharma#: [id number] Admission: 10/03/19 Attend Phys: Judie Melendez Discharge: Date of : 52 Report #: [id number] is on the chart. Risk assessment tool is low. Functional assessment is 38/70. 8. Recreational drug use in the past. He currently smokes 7-8 cigarettes a day. We did discuss smoking cessation and alcohol use is occasionally. According to the prescription monitoring, the patient filled his tramadol in August, but he has not started that medication. He continues to take Dilaudid sparingly, which last filled was in May. No other aberrant fills noted. He tells me he does safeguard his meds at all times. PHYSICAL EXAMINATION: GENERAL: This is a well-developed, well-nourished black male who appears his stated age, placing his current pain score at 7-8/10. He is alert and orientated and his affect is appropriate. HEENT: Normocephalic, atraumatic. Extraocular eye muscles are intact. Mucous membranes are moist. NECK: Without adenopathy or JVD. LUNGS: Clear to auscultation but shortness of breath with exertion. MUSCULOSKELETAL: Lower extremity strength judged to be 5/5 for all major muscle groups. He has pain and discomfort following the L4-L5 dermatomal distribution on the left leg. Pain is across his lumbar spine with tenderness in the paraspinal muscles. IMPRESSION: 1. Lumbar radiculopathy following the L4-L5 dermatomal distribution. 2. Cervical radiculopathy. 3. History of hepatitis. 4. Hypertension. 5. Chronic obstructive pulmonary disease. 6. Complex regional pain management using opioids. MRI findings: 1. mild dextroscoliotic curvature with disk space narrowing and endplate degenerative changes. 2. Disk bulging at L1-L2 with mild foraminal tapering, mild bulging of the disk annulus at L2-L3 causing moderate left foraminal stenosis. 3. Mild and severe left foraminal stenosis with disk protrusion at L4-L5 extending in the foramen, moderate posterior facet degenerative changes. 4. Severe posterior facet degenerative changes at L5-S1 with fluid along the right facet joint, disk and osteophyte cause severe bilateral foraminal stenosis abutting the exiting L5 nerve root without impingement. We reviewed the fact that opiate medications are being used to provide analgesia adequate to support activities of daily living, not attempting to achieve a specific pain score on the 0-10 Visual Analog Scale. The current opiate medications are providing sufficient analgesia to allow the patient to participate in activities of daily living. The patient is not exhibiting any aberrant behavior suggestive of drug diversion. The patient is not having any [facility] [address] [place] [address] PAIN MANAGEMENT CONSULTATION Name: OLIVAMASSEYRUKHSANA Peter JR Room #: REG [facility]Andres#: [id number] Admission: 10/03/19 Attend Phys: Judie Melendez Discharge: Date of : 52 Report #: [id number] adverse reactions to medications. The patient is not suffering from daytime somnolence or mental acuity changes. The patient is managing opiate-induced constipation with appropriate [id number] agents and dietary considerations. The patient was counseled on concern for caution with operating a motor vehicle while using opiate medications. PLAN: We discussed treatment options with the patient today. 1. We discussed his hypertension again present today. The patient reports he was only taking half of his medication. He recently discovered this Richard and yesterday and today has taken his full dose of antihypertensive medications. His blood pressure is again elevated today, though he denies a headache that he has had in the past when his blood pressure is high. He has seen his primary care doctor this afternoon. I again stressed that he needs to discuss this with him and check his blood pressure at home. 2. The patient reports he has not started his tramadol or his tizanidine, has continued taking his Dilaudid for severe pain on a very minimal 1-2 basis. His script has lasted since May. I explained to him he may continue that for severe pain, but per Dr. Stinson's dictation at last visit, he would like to have him try the tramadol 1-2 tablets a day. We are worried about his respiratory status and are trying to have him on a lower dose of narcotics. The patient verbalizes understanding. He will try tramadol instead of the Dilaudid on a daily basis, but we will continue his Dilaudid very sparingly. 3. Scripts given today for Dilaudid 4 mg p.r.n. #30 with no additional refills. 4. Tizanidine was prescribed last month, he has not trialled that medication. 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 He verbalizes understanding. 5. The patient will be sent to Radiology to get his MRI disc and report to take to Dr. Mcgovern. Encouraged him to notify us once he has seen the physician to see what the plan of care, whether it be surgery or not for him. The patient verbalizes understanding. The patient will call us after that appointment. 6. The patient is seen in collaboration with Dr. Kenny Stinson. <ELECTRONICALLY SIGNED> By: Judie Melendez 10/04/19 1400 [id number] Judie Melendez /nt
== END ==
LOC: PAIN
DX: M48.061 Spinal stenosis, lumbar region without neurogenic claudication (principal); I10 Essential (primary) hypertension; J44.9 Chronic obstructive pulmonary disease, unspecified; G89.4 Chronic pain syndrome; M51.16 Intervertebral disc disorders with radiculopathy, lumbar region; K75.89 Other specified inflammatory liver diseases; Z79.899 Other long term (current) drug therapy; Z88.8 Allergy status to other drugs, medicaments and biological substances

== ENCOUNTER 2019-10-09 09:16 | Emergency (ER) | payer OTHER ==
[~2019-10-09] VITALS: Ht 165.1 cm; Wt 102.5 kg
[2019-10-09 12:08] LABS: HEMATOCRIT 42.9 % (42.0-52.0); MCH 32.9 pg (26.0-34.0); MCHC 32.7 g/dL (28.0-37.0); MCV 100.9 fL (80.0-100.0); PLATELET COUNT 189 thou/uL (150-400); RBC 4.25 mil/uL (4.50-6.00)
[2019-10-09 12:17] LABS: ANION GAP 7 mmol/L (7-16); BUN 12 mg/dL (7-18); CALCIUM 8.9 mg/dL (8.5-10.1); CHLORIDE 102 mmol/L (98-107); CO2 29 mmol/L (21-32); CREATININE 1.1 mg/dL (0.7-1.3); GLUCOSE 95 mg/dL (74-106); POTASSIUM 3.8 mmol/L (3.5-5.1); SODIUM 138 mmol/L (136-145)
[2019-10-09 12:20] LABS: APTT 25.7 Seconds (24.5-32.8); PROTIME 9.8 Seconds (9.3-11.4)
[2019-10-09 12:28] LABS: ALBUMIN 3.5 g/dL (3.4-5.0); SGOT 24 U/L (15-37); SGPT 35 U/L (30-65); TOTAL BILIRUBIN 0.3 mg/dL (<0.1-1.0); TOTAL PROTEIN 7.4 g/dL (6.4-8.2); TROPONIN-I <0.06 ng/mL (<0.06)
[2019-10-09 13:10] LABS: ABSOLUTE NEUTROPHILS 4.6 thou/uL (1.4-8.2); ATYPICAL LYMPHS 1 %
[2019-10-09 13:45] VITALS: BP 147/96
--- NOTE | 2019-10-09 16:49 | EKG ---
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
[2019-10-26] MEDS ORDERED: TRAMADOL 50 MG50 MG PO (11:35)
[2019-10-26] MEDS ORDERED: TIZANIDINE HCL2 M1 PO (12:45)
[2019-10-26] MEDS ORDERED: DILAUDID 4 MG TA4 M1 PO (12:45)
[2019-10-26] MEDS ORDERED: LYRICA 50 MG50 MG PO (12:45)
== END 2019-10-09 13:46 | disposition home or self-care (01) ==
LOC: ER 09:16
PROVIDERS: Emergency Medicine
DX: J44.1 Chronic obstructive pulmonary disease with (acute) exacerbation (principal); I10 Essential (primary) hypertension; G47.30 Sleep apnea, unspecified; F17.210 Nicotine dependence, cigarettes, uncomplicated

== ENCOUNTER → 2019-10-10 | Outpatient (CLI) | payer OTHER | LOC: CAT 08:57 | DX: J84.10 Pulmonary fibrosis, unspecified (principal); J92.9 Pleural plaque without asbestos; R91.1 Solitary pulmonary nodule ==

== ENCOUNTER → 2019-10-26 | Outpatient (CLI) | payer OTHER ==
[~2019-10-26] VITALS: Ht 162.6 cm; Wt 106.1 kg
[~2019-10-26] MED LIST changes: +LYRICA 50 MG50 MG PO
[2019-10-26 11:36] VITALS: BP 158/96
--- NOTE | 2019-10-26 11:46 | NUR ---
Pain Clinic Assessment: 1. History of Osteoarthritis: NO History of Rheumatoid Arthritis: NO 2. Height: 5 ft. 4 in. 162.6 cm. Weight: 234.0 lb. oz. 106.142 kg. Patient's BMI: 40.1 3. Vital Signs: BP: 158/96 Pulse: 96 Resp: 15 Temp: 02 Sat: 99 ECG Mon: 4. Pain Intensity: 6 5. Fall Risk: Dizziness: N Needs help standing or walking: N Fallen in the last 3 months: N Fall risk comments: FELL 2 MONTHS AGO DID NOT SEEK MEDICAL 6. Patient on Blood Thinner: None 7. History of Hypertension: Y 8. Opioid Therapy greater than 6 weeks: Y Opiate Contract Signed: 09/16/17 9. Risk Assessment Tool Provided: LOW-0 10. Functional Assessment Tool: 11. Recreational Drug Use: Never Drug Type: Tobacco Use: Current Every Day Smoker Tobacco Type: Cigarettes Amount or Packs/day: 1/2 How Many Years: 55 Alcohol Use: Yes Frequency: Daily Quant: 1/2 GLASS WINE
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
== END | disposition home or self-care (01) ==
LOC: PAIN 06:53
DX: M54.16 Radiculopathy, lumbar region (principal); G89.29 Other chronic pain; I10 Essential (primary) hypertension; J44.9 Chronic obstructive pulmonary disease, unspecified; R42 Dizziness and giddiness; G47.30 Sleep apnea, unspecified; K21.9 Gastro-esophageal reflux disease without esophagitis; F17.210 Nicotine dependence, cigarettes, uncomplicated; Z79.891 Long term (current) use of opiate analgesic; Z98.890 Other specified postprocedural states; Z86.19 Personal history of other infectious and parasitic diseases; Z79.899 Other long term (current) drug therapy; Z88.8 Allergy status to other drugs, medicaments and biological substances

== ENCOUNTER → 2019-11-23 | Outpatient (CLI) | payer OTHER ==
[~2019-11-23] VITALS: Ht 162.6 cm; Wt 107.3 kg
--- NOTE | ~2019-11-23 | HPC ---
[facility] [address] [address] PAIN MANAGEMENT CONSULTATION Name: GISSELL OLIVARUKHSANA Peter JR Room #: REG [facility].#: [id number] Admission: 11/23/19 Attend Phys: Aby Stinson MD Discharge: Date of : 52 Report #: [id number] THIS REPORT FOR: //name// CC: Mitesh BRYANT DATE OF SERVICE: 11/23/2019 CHIEF COMPLAINT: "Here for medications. I have not worked since 09/2019." HISTORY: The patient is a 69-year-old gentleman who has been followed in the pain clinic because of chronic back pain. As you may recall, he has continues to have pain, which is quite agonizing. 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 Because of the severity of his back pain and limitations he has been unable to drive since 09/2019. He rates his pain as a 6 today. He feels that his pain medications are helpful and would like to have them renewed. He has returned today with a desire to have them renewed. He does feel somewhat depressed because of his inability to work. ALLERGIES: No known drug allergies. CURRENT MEDICATIONS: OxyIR 10 mg 1 p.o. t.i.d., Voltaren gel to the upper extremity, Percocet 10 mg q. 6 hours p.r.n., albuterol, Antivert for vertigo, magnesium oxide 400 mg, calcium 600 mg, vitamin D, potassium 10 mEq, Symbicort 80/4.5 b.i.d. and Lotensin. PAIN CLINIC ASSESSMENT AND PQRS: 1. Osteoarthritis. He has some arthritic changes in his back. 2. Rheumatoid arthritis. The patient is not being treated for rheumatoid arthritis. 3. Height 5 feet 4 inches, weight 236 pounds, BMI is 40. 4. Vital Signs: Blood pressure 151/97, pulse 84, respiratory rate 20, room air saturation is 95%. 5. Pain intensity 2-3 today. 6. Fall risk. The patient fell about 2 months ago, did not need to seek medical attention. 7. Blood thinner. The patient is not on a blood thinning medication. 8. Hypertension. The patient is being treated for hypertension. 9. Opioids greater than 6 weeks. The patient received medication from one source, the pain clinic. 10. Risk assessment tool, low for opioid use. 11. Functional assessment tool 38/. 12. Recreational drug use: The patient denies. 13. Tobacco: The patient smokes cigarettes, is down to 9-[address] [place] [address] PAIN MANAGEMENT CONSULTATION Name: BRYSON OLIVA Room #: REG [facility]#: [id number] Admission: 11/23/19 Attend Phys: Aby Stinson MD Discharge: Date of : 52 Report #: [id number] 14. Alcohol. The patient occasionally drinks alcoholic beverages. PHYSICAL EXAMINATION: GENERAL: The patient is a well-developed, well-nourished black male. He appears his stated age. He is alert and oriented x 3. His affect is appropriate. Speech is fluent. HEENT: Normocephalic, atraumatic. Extraocular eye muscles intact. The patient is wearing glasses. NECK: Without adenopathy or JVD. LUNGS: Generally clear to auscultation. HEART: Regular rate. ABDOMEN: Protuberant. MUSCULOSKELETAL: Upper extremity muscle strength judged to be 5/5 for the major muscle groups in the upper extremity. The patient without significant scoliosis, kyphosis or lordosis. He does complain of pain and discomfort in lower portion of his back with pain that radiates down to his left leg in the L4-L5 dermatomal distribution. IMPRESSION: 1. Lumbar radiculopathy following the L4-L5 dermatomal distribution. 2. Cervical radiculopathy. 3. History of hepatitis. 4. Hypertension. 5. Chronic obstructive pulmonary disease. 6. Complex regional pain management using opioids. LABORATORY DATA: MRI of the lumbar spine dated on 09/18/2019. 1. Mild dextroscoliotic curvature of the disk space narrowing endplate with degenerative changes. 2. Degenerative disk bulging at L1-L2 with mild foraminal tapering of the left and moderate on the right. Minimal bulging of the disk annulus at L2-L3 causing moderate left foraminal stenosis and early posterior facet degenerative changes. 3. Mild right and severe left foraminal stenosis from disk protrusion at L3-L4 at L4-L5 extending into the foramen. Moderate posterior facet degenerative changes present. 4. Severe posterior facet degenerative changes at L5-S1 with fluid along the right facet joint. Disk and osteophytes cause severe bilateral foraminal narrowing with stenosis abutting the exiting L5 nerve root without impingement on the canal. RECOMMENDATIONS: The patient would like to see a surgeon. We have given him the name of Wiliam Reyes and Chu. He will follow up with him and see whether or not surgical option is available. A script for his medications has been written. He will continue with Lyrica 50 mg p.o. t.i.d. He will continue with Dilaudid 4 mg 1 p.o. total of 30 tablets have been provided. The patient will also continue with tizanidine 2 mg b.i.d. to help with muscle spasms. [facility] [address] [place] [address] PAIN MANAGEMENT CONSULTATION Name: BRYSON OLIVA JR Room #: REG KAELYN Sharma#: [id number] Admission: 11/23/19 Attend Phys: Aby Stinson MD Discharge: Date of : 52 Report #: [id number] We would like to thank you for letting us participate in his care. We hope he continues to improve. By: 0909 [id number] Aby Stinson MD /nt
[2019-11-23 11:23] VITALS: BP 151/97
== END ==
LOC: PAIN 06:52
DX: M54.16 Radiculopathy, lumbar region (principal); M54.12 Radiculopathy, cervical region; I10 Essential (primary) hypertension; J44.9 Chronic obstructive pulmonary disease, unspecified; K75.9 Inflammatory liver disease, unspecified; Z79.891 Long term (current) use of opiate analgesic

== ENCOUNTER → 2019-12-21 | Outpatient (CLI) | payer OTHER ==
[~2019-12-21] VITALS: Ht 162.6 cm; Wt 103.0 kg
[2019-12-21 08:14] VITALS: BP 131/79
--- NOTE | 2019-12-21 08:27 | NUR ---
Pain Clinic Assessment: 1. History of Osteoarthritis: NO History of Rheumatoid Arthritis: NO 2. Height: 5 ft. 4 in. 162.6 cm. Weight: 227.0 lb. oz. 102.967 kg. Patient's BMI: 38.9 3. Vital Signs: BP: 131/79 Pulse: 104 Resp: 14 Temp: 02 Sat: 95 ECG Mon: 4. Pain Intensity: 5 5. Fall Risk: Dizziness: N Needs help standing or walking: N Fallen in the last 3 months: N Fall risk comments: FELL 2 MONTHS AGO DID NOT SEEK MEDICAL 6. Patient on Blood Thinner: None 7. History of Hypertension: Y 8. Opioid Therapy greater than 6 weeks: Y Opiate Contract Signed: 09/16/17 9. Risk Assessment Tool Provided: LOW-0 10. Functional Assessment Tool: 11. Recreational Drug Use: Never Drug Type: Tobacco Use: Current Every Day Smoker Tobacco Type: Amount or Packs/day: How Many Years: Alcohol Use: Yes Frequency: Quant:
--- NOTE | 2019-12-28 08:39 | HPC ---
[facility] [address] [place] [address] PAIN MANAGEMENT CONSULTATION Name: BRYSON OLIVA JR Room #: REG [facility] Anne#: [id number] Admission: 12/21/19 Attend Phys: Aby Stinson MD Discharge: Date of : 51 Report #: [id number] THIS REPORT FOR: cc: Mitesh Parker James A. DO Brown, N. Wayne MD ~ THIS REPORT FOR: //name// CC: Mitesh Stinson DATE OF SERVICE: 12/26/2019 CHIEF COMPLAINT: Pain in the low back with pain that radiates down into the leg. Right side is most uncomfortable. HISTORY: The patient is a 69-year-old black gentleman who has been followed in the pain clinic for some time. He has significant problems with back pain. 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 He has been unable to drive since about 09/2019. He is limited because of the chronic pain involving his back. He states that he has seen a surgeon on one occasion who stated that his back pain is from arthritis in his lumbar area. The surgeon felt that his arthritic changes were quite remarkable. He did not feel that at this juncture surgery would be the best option. He has been given the option of spinal cord stimulator. The patient saw another physician who also felt that he has significant arthritic changes in his low back and would not be a real good candidate for surgery at this juncture. The patient at this point has returned to the pain clinic for an epidural steroid injection. He would also like to consider spinal cord stimulator in the future. ALLERGIES: No known drug allergies. CURRENT MEDICATIONS: OxyIR 1 mg p.o. t.i.d., Voltaren gel to the upper extremities, Percocet 10 mg q.6 hours, albuterol, Antivert for vertigo, magnesium oxide 400 mg, calcium 600 mg, vitamin D, potassium 10 mEq, Symbicort 80/4.5 b.i.d., Lotensin. PAIN CLINIC ASSESSMENT AND PQRS: 1. The patient has osteoarthritic changes in his back. He is not being treated for rheumatoid arthritis. 2. Height 5 feet 4 inches, weight 227 pounds, BMI is 38.4. 3. Vital Signs: Blood pressure 131/79, pulse 104, respiratory rate 14, room air saturation 95. 4. Pain intensity is 5/10. 5. Fall history: The patient fell about 2 months ago. 6. Blood thinner. The patient is not on [place] [address] PAIN MANAGEMENT CONSULTATION Name: BRYSON OLIVA Room #: REG [facility]#: [id number] Admission: 12/21/19 Attend Phys: Aby Stinson MD Discharge: Date of : 51 Report #: [id number] 7. Hypertension. The patient is being treated for hypertension. 8. Opioids greater than 6 weeks, low for opioid use. 9. Recreational drug use: The patient denies. 10. Functional assessment tool 38/70. 11. Tobacco: The patient is a current smoker. 12. Alcohol. The patient denies constant use of alcoholic beverages. PHYSICAL EXAMINATION: GENERAL: The patient is a well-developed, well-nourished black male, appears his stated age. He is alert and oriented x 3. His affect is appropriate. Speech is fluent. HEENT: Normocephalic, atraumatic. Extraocular eye muscles intact. Sclerae nonicteric. The patient wears glasses. NECK: Without adenopathy or JVD. LUNGS: Generally clear to auscultation. HEART: Regular rate. ABDOMEN: Protuberant. EXTREMITIES: Upper extremity muscle strength judged to be 5/5 for the major muscle groups in the upper extremity. The patient without significant scoliosis, kyphosis or lordosis. The patient does have pain and discomfort in lower portion of his back with pain that is radiating down to the lumbar area involving the left and right side. On the right side pain is radiating down to his ankle. IMPRESSION: 1. Lumbar radiculopathy in the L4-L5 dermatomal distribution with pain down the right leg and down to the ankle. 2. History of cervical radiculopathy. 3. History of hepatitis. 4. Hypertension. 5. Chronic obstructive pulmonary disease. 6. Complex regional pain control using opioids. RECOMMENDATIONS: We discussed treatment options with the patient. At this juncture, we will proceed with another epidural steroid injection. Risks and benefits of the procedure were discussed. They include but are not limited to infection, worsening pain, no improvement in pain, nerve damage, spinal headache and the patient elects to proceed. The patient states that he is having quite a bit of pain. Has difficulty standing in the shower to bath. He is considering possibility of a stimulator trial. He would like to undergo the process and have Dr. Serra or Dr. Christianson at [facility] evaluate him for possible stimulator trial. He will proceed with an epidural steroid injection at this juncture. PROCEDURE NOTE: The patient was taken to the procedure area. He was then assisted in getting on the examination table. His back was sterilely prepped [facility] [address] [place] [address] PAIN MANAGEMENT CONSULTATION Name: BRYSON OLIVA JR Room #: REG [facility]#: [id number] Admission: 12/21/19 Attend Phys: Aby Stinson MD Discharge: Date of : 51 Report #: [id number] with a Betadine solution. A 0.25% bupivacaine was infiltrated. A 17-gauge Tuohy with loss of resistance technique was used to gain access to the epidural space. There was no CSF, heme or paresthesia. A total of 80 mg Depo-Medrol, 40 mg triamcinolone and 2 mL of 0.25% bupivacaine was injected. Fluoroscopy was used in anterior and posterior position as well as lateral viewing to corroborate appropriate placement of the epidural injection. We would like to thank you for letting us participate in his care. We hope he continues to improve. The patient was given tizanidine to help control the pain as well as hydromorphone 4 mg have been rewritten. <ELECTRONICALLY SIGNED> By: Aby Stinson MD 12/28/19 0839 0817 1321 Aby Stinson MD /[facility]
== END | disposition home or self-care (01) ==
LOC: PAIN 12-19 06:51
DX: M54.16 Radiculopathy, lumbar region (principal); G89.29 Other chronic pain; I10 Essential (primary) hypertension; J44.9 Chronic obstructive pulmonary disease, unspecified; K21.9 Gastro-esophageal reflux disease without esophagitis; Z98.890 Other specified postprocedural states; Z79.899 Other long term (current) drug therapy; Z86.19 Personal history of other infectious and parasitic diseases

== ENCOUNTER → 2019-12-25 | Outpatient (CLI) | payer OTHER ==
[~2019-12-25] VITALS: Ht 162.6 cm; Wt 103.9 kg
[2019-12-25 13:12] VITALS: BP 156/99
--- NOTE | 2019-12-25 13:35 | NUR ---
Pain Clinic Assessment: 1. History of Osteoarthritis: NO History of Rheumatoid Arthritis: NO 2. Height: 5 ft. 4 in. 162.6 cm. Weight: 229.0 lb. oz. 103.874 kg. Patient's BMI: 39.3 3. Vital Signs: BP: 156/99 Pulse: 84 Resp: 22 Temp: 02 Sat: 97 ECG Mon: 4. Pain Intensity: 5 5. Fall Risk: Dizziness: N Needs help standing or walking: N Fallen in the last 3 months: N Fall risk comments: FELL 2 MONTHS AGO DID NOT SEEK MEDICAL 6. Patient on Blood Thinner: None 7. History of Hypertension: Y 8. Opioid Therapy greater than 6 weeks: Y Opiate Contract Signed: 09/16/17 9. Risk Assessment Tool Provided: LOW-0 10. Functional Assessment Tool: 11. Recreational Drug Use: Never Drug Type: Tobacco Use: Current Every Day Smoker Tobacco Type: Cigarettes Amount or Packs/day: 1 How Many Years: 55 Alcohol Use: Yes Frequency: Daily Quant: WINE
--- NOTE | 2019-12-28 07:46 | HPC ---
[facility] [place] [address] PAIN MANAGEMENT CONSULTATION Name: OLIVABRYSON JR Room #: REG [facility] Anne#: [id number] Admission: 12/25/19 Attend Phys: Mitesh Serra DO Discharge: Date of : 52 Report #: [id number] THIS REPORT FOR: cc: Mitesh Parker James A. DO Johnson, James E. DO ~ THIS REPORT FOR: //name// CC: Mitesh Holguin MD DATE OF SERVICE: 12/25/2019 REFERRING PHYSICIAN: Dr. Wiliam Reyes. CHIEF COMPLAINT: Low back pain, bilateral lower extremity pain. HISTORY OF PRESENT ILLNESS: As you know, the patient is a 69-year-old male who has been followed by my partner, Dr. Kenny Stinson for chronic lumbar radicular symptoms. He has been started on medication management and continues to utilize that therapy. He reports increasing back pain, bilateral lower extremity symptoms for which the patient and his treating physician, Dr. Stinson discussed the possibility of a spinal cord stimulator being helpful. The patient was established today's appointment to discuss that as a possibility. He showed up to the clinic 1 hour and 10 minutes late for his appointment. It appears based on the review of the chart that the patient does have issues with timeliness and forgetfulness. Apparently, he does show up to appointments that are not actually confirmed and has shown up to appointments extremely late. Based on the patient's physical conditions, he would appear to be a candidate for spinal cord stimulator therapy, though I am concerned about this tardiness and cognitive issues. He has been referred to my clinic to discuss the possibility of spinal cord stimulator trial implantation for chronic low back and bilateral lower extremity symptoms. ALLERGIES: No known drug allergies. CURRENT MEDICATIONS: Oxycodone 10 mg t.i.d. p.r.n. pain, Voltaren gel applied topically up to 3 times a day, albuterol 2 puffs q. 4 hours p.r.n., Antivert for vertigo, magnesium oxide 400 mg once a day, calcium carbonate 600 mg with vitamin D once a day, potassium chloride 10 mEq p.o. every day, Symbicort 80/4.5 mcg inhaled b.i.d., Lotensin 20 mg once a day, pregabalin 50 mg 3 times a day. SOCIAL HISTORY: The patient reported himself as a continued smoker. Denies IV or illicit drug use. Admits to 3 alcoholic beverages per week. 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 IMAGING: No new imaging available. PQRS: The patient has known arthritic changes of his cervical and lumbar spine. No rheumatoid arthritis. Placing pain today up to 6/10. He is not a fall risk, has not had a fall in last 3 months. He is not on blood thinners, but is treated for hypertension. He is on chronic opioids, but reportedly has a low opioid addiction potential. Pain impact score 40/70 indicating moderate interference of daily activities secondary to pain. PHYSICAL EXAMINATION: GENERAL: Well-developed, well-nourished, well-hydrated, exogenously obese 69-year-old male. He appears his stated age. He is in no acute distress, awake, alert and oriented x 3. Current pain score 5-6/10. HEENT: Normocephalic, atraumatic. Pupils are equal, round, reactive to light. Speech fluent. The patient deemed a fair historian. EXTREMITIES: Show no clubbing, no cyanosis, no edema. MUSCULOSKELETAL: Lower extremity strength appears symmetrical 5/5, intact to light touch from L1 through S2 dermatomes. Seated straight leg raising negative. Supine straight leg raising reportedly positive on the left greater than right. This is noted at about 65-degree angle. Ankle clonus negative. Babinski is negative. Gait mildly antalgic favoring left lower extremity over right. There is a slight loss of lordotic curvature with a forward flexed stance. ASSESSMENT: 1. Chronic lumbar radiculopathy. 2. Lumbosacral spondylosis with radiculopathy. 3. Chronic intractable pain. PLAN: 1. The patient has been referred to my clinic to discuss the possibility of a spinal cord stimulator as a treatment course. The patient does have a history of missing appointments and being late to appointments which is concerning as the spinal cord stimulator does require a very, very close attention to treatment and monitoring. I have voiced my concern to the patient today in regards to this issue. He showed up to today's appointment an hour and 10 minutes late, indicating he had an appointment at 11:30, which is not possible as we do not offer appointments after 11:00 as we do shut down for lunch. Reviewing the rest of the chart, it does appear he has been late to multiple appointments and many times shows up on the wrong day or does not show at all. This again is very concerning to this physician in regards to the implantation of a device that requires very close management. We discussed this with the patient today, states that he can improve. 2. We did discuss the spinal cord stimulator itself and how the trial would be [facility] [address] [place] [address] PAIN MANAGEMENT CONSULTATION Name: GISSELL OLIVARUKHSANA Peter JR Room #: [facility] Anne.#: [id number] Admission: 12/25/19 Attend Phys: Mitesh Serra DO Discharge: Date of : 51 Report #: [id number] implemented. The patient would have to make arrangements to be able to trial the device for over a week period of time. He would not be able to shower during that time nor can he bathe. During this time, he will have to use more of a wash cloth type of personal hygiene routine. This is to maintain the integrity of the externalized device during the trial. The patient did voice concerns about this issue, but will have to make accommodations if he does wish to move forward with trial. 3. In regards to the patient's back symptoms, there is a low possibility of capturing the axial back pain issues he is experiencing with the spinal cord stimulator, though I do feel that the radicular component of his pain could see improvement with the device. We did give the patient information about the spinal cord stimulator today to review on his own. He will need to review this before he has his appointment with Psychiatry. If he review this information and has further questions, you can follow up with Dr. Stinson and myself. 4. I have provided the patient with information about the psychiatric evaluation. He will need to contact one of the psychiatric physicians on the list of providers to make an appointment to be seen. Once the psychiatric evaluation has been completed, we will review the findings. If there is no psychopathology concerning, we would then begin the process of scheduling a trial implantation. The patient will contact the clinic once he has completed the psychiatric evaluation. 5. We made no changes in the patient's medication management at this time. He is to continue current medical therapy as prior prescribed. 6. We will see the patient back in followup visit to either discuss questions he may have in regards to spinal cord stimulator, though we did spend over 45 minutes of time discussing it today or to discuss the psychiatric evaluation or other treatment options. <ELECTRONICALLY SIGNED> By: Mitesh Serra DO 12/28/19 0746 1234 [id number] Mitesh Serra DO /nt
== END ==
LOC: PAIN 06:38
DX: M47.26 Other spondylosis with radiculopathy, lumbar region (principal); M47.818 Spondylosis without myelopathy or radiculopathy, sacral and sacrococcygeal region; M79.604 Pain in right leg; M79.605 Pain in left leg; Z79.899 Other long term (current) drug therapy

== ENCOUNTER 2020-02-05 10:59 | Emergency (ER) | payer OTHER ==
[~2020-02-05] VITALS: Ht 162.6 cm; Wt 102.1 kg
[2020-02-05 11:35] LABS: ABSOLUTE NEUTROPHILS 3.6 thou/uL (1.4-8.2); EOSINOPHILS 0.4 % (0.0-3.0); HEMATOCRIT 41.3 % (42.0-52.0); HEMOGLOBIN 13.3 gm/dL (14.0-18.0); LYMPHOCYTES 13.4 % (24.0-44.0); MCH 31.8 pg (26.0-34.0); MCHC 32.1 g/dL (28.0-37.0); MONOCYTES 11.5 % (1.0-8.0); PLATELET COUNT 176 thou/uL (150-400); POLYS 73.7 % (36.0-66.0); RBC 4.17 mil/uL (4.50-6.00); RDW 14.2 % (10.5-14.5); WBC 4.9 thou/uL (4.0-11.0)
[2020-02-05 11:43] LABS: CALCIUM 9.3 mg/dL (8.5-10.1); CREATININE 1.5 mg/dL (0.7-1.3); POTASSIUM 3.9 mmol/L (3.5-5.1)
[2020-02-05 11:53] LABS: ALBUMIN 3.5 g/dL (3.4-5.0); TOTAL BILIRUBIN 0.9 mg/dL (<0.1-1.0); TOTAL PROTEIN 7.3 g/dL (6.4-8.2); TROPONIN-I 0.06 ng/mL (<0.06)
--- NOTE | 2020-02-05 14:29 | EKG ---
[facility] [address] [place] [address] ELECTROCARDIOGRAM REPORT Name: BRYSON OLIVA Room #: REG [facility]#: [id number] Admission: 02/05/20 Attend Phys: Discharge: Date of : 51 Report #: [id number] THIS REPORT FOR: cc: Mitesh Parker James A. DO Lundgren, Craig H. MD [facility] ~ THIS REPORT FOR: //name// [facility] ED Test Date: 2020-02-05 Test Time: 11:09:28 Pat Name: BRYSON OLIVA Department: Room: Gender: Smoke Jumper: [facility] : 1950 Requested By: Norbert Caraballo Order Number: [id number] MD: Anirudh Cardona Measurements Intervals [place] Rate: 112 P: 63 PA: 136 QRS: 1 QRSD: 86 T: 33 QT: 334 QTc: 456 Interpretive Statements Sinus tachycardia Ventricular premature complex Baseline wander in lead(s) V2,V5 Compared to ECG 10/09/2019 10:10:52 Ventricular premature complex(es) now present Electronically Signed On 02-05-2020 14:28:07 CDT by Anirudh Cardona [email or web address] <ELECTRONICALLY SIGNED> By: Anirudh Cardona MD, [facility] 02/05/20 1428 1109 1109 Anirudh Cardona MD, [facility] /EPI
[2020-02-05 14:46] VITALS: BP 123/76
== END 2020-02-05 15:00 | disposition home or self-care (01) ==
LOC: ER 10:59
PROVIDERS: Emergency Medicine
DX: R00.0 Tachycardia, unspecified (principal); R00.2 Palpitations; I10 Essential (primary) hypertension; J44.9 Chronic obstructive pulmonary disease, unspecified; F17.210 Nicotine dependence, cigarettes, uncomplicated; Z79.899 Other long term (current) drug therapy

== ENCOUNTER → 2020-02-11 | Outpatient (CLI) | payer OTHER ==
[~2020-02-11] MED LIST changes: +PREGABALIN50 MG PO; +TIZANIDINE HCL 22 M1 PO
== END ==
LOC: SJCVC 10:56
DX: I47.1 Supraventricular tachycardia (principal); J44.1 Chronic obstructive pulmonary disease with (acute) exacerbation; I10 Essential (primary) hypertension; G47.33 Obstructive sleep apnea (adult) (pediatric); M19.90 Unspecified osteoarthritis, unspecified site; M06.9 Rheumatoid arthritis, unspecified; E66.9 Obesity, unspecified; F17.210 Nicotine dependence, cigarettes, uncomplicated; Z79.899 Other long term (current) drug therapy; Z99.89 Dependence on other enabling machines and devices

== ENCOUNTER → 2020-02-27 | Outpatient (CLI) | payer OTHER | LOC: PAIN 10:48 | DX: M54.16 Radiculopathy, lumbar region (principal); I10 Essential (primary) hypertension; J44.9 Chronic obstructive pulmonary disease, unspecified; F11.20 Opioid dependence, uncomplicated; Z87.39 Personal history of other diseases of the musculoskeletal system and connective tissue; Z79.899 Other long term (current) drug therapy ==

== ENCOUNTER → 2020-03-26 | Outpatient (CLI) | payer OTHER ==
[~2020-03-26] VITALS: Ht 162.6 cm; Wt 108.2 kg
[~2020-03-26] MED LIST changes: +SPIRIVA RESPIMAT4 G1 INH
[2020-03-26 09:35] VITALS: BP 153/87
--- NOTE | 2020-03-26 09:56 | NUR ---
Pain Clinic Assessment: 1. History of Osteoarthritis: NO History of Rheumatoid Arthritis: NO 2. Height: 5 ft. 4 in. 162.6 cm. Weight: 238.6 lb. oz. 108.228 kg. Patient's BMI: 40.9 3. Vital Signs: BP: 153/87 Pulse: 107 Resp: 22 Temp: 02 Sat: 98 ECG Mon: 4. Pain Intensity: 4, SOMETIMES 8. 5. Fall Risk: Dizziness: N Needs help standing or walking: N Fallen in the last 3 months: Y Fall risk comments: FELL 2 MONTHS AGO DID NOT SEEK MEDICAL 6. Patient on Blood Thinner: None 7. History of Hypertension: Y 8. Opioid Therapy greater than 6 weeks: Y Opiate Contract Signed: 09/16/17 9. Risk Assessment Tool Provided: LOW-0 10. Functional Assessment Tool: 11. Recreational Drug Use: Never Drug Type: Tobacco Use: Current Every Day Smoker Tobacco Type: Cigarettes Amount or Packs/day: 1/2 How Many Years: 45 Alcohol Use: Yes Frequency: Daily Quant: WINE AT BEDTIME
--- NOTE | 2020-03-27 14:28 | HPC ---
[facility] [address] [place] [address] PAIN MANAGEMENT CONSULTATION Name: GISSELL OLIVATCHER Brittani ALCARAZ Room #: REG [facility]#: [id number] Admission: 03/26/20 Attend Phys: Judie Melendez Discharge: Date of : 51 Report #: [id number] THIS REPORT FOR: cc: Mitesh Parker James A. DO Hocker, Amanda CNS ~ CC: Bertha Stinson MD DATE OF SERVICE: 03/26/2020 CHIEF COMPLAINT: Low back pain and bilateral hip pain. HISTORY OF PRESENT ILLNESS: This is a pleasant 69-year-old gentleman who returns to the pain clinic today for a refill of his medications that he uses to help treat his ongoing low back pain and bilateral hip pain. Today, he is reporting that he recently saw Dr. Weeks who did x-rays of his bilateral hips and advised him to have a hip replacement. The patient tells me that his right hip is more painful than his left, though he does report he needs both hips replaced. He is hopeful to have this surgery in April, but he is wondering if he should hold off on his spinal cord stimulator and which surgery he should have first. The patient also reports that he fell yesterday on some grocery bags and that did cause an increase in pain. The patient feels that his Dilaudid is helpful in decreasing his pain when he takes his medicine from an 8 to a 4. He reports that his pain is worse with any activity and walking. He is wondering about a possible injection in his hips as well today. ALLERGIES: No known drug allergies. CURRENT LIST OF MEDICATIONS: Spiriva, tizanidine, Lyrica, hydromorphone, trazodone, Ambien, albuterol, Mag-Ox, potassium, Symbicort, and Lotensin. PATIENT'S PQRS: 1. He has arthritic changes in his back and bilateral hips. He is not being treated for rheumatoid arthritis. 2. Height is 5 feet 4 inches, weight is 238, BMI is 40. 3. Vital signs 153/87, pulse is 107, respirations 22, oxygen sat is 98. 4. Pain score is 4-8. 5. Denies dizziness, does not need help walking or standing, has fallen in the past week. The patient is not on any blood thinners, but does take medicine for hypertension. His opioid therapy is greater than 6 weeks; therefore, an opioid signed contract is on the chart. Risk assessment tool is low. Functional assessment is 38/70. 6. Recreational drug use, he denies. He is a current smoker [place] [address] PAIN MANAGEMENT CONSULTATION Name: BRYSON OLIVA Room #: REG [facility] Sharma#: [id number] Admission: 03/26/20 Attend Phys: Judie Melendez Discharge: Date of : 51 Report #: [id number] According to the prescription monitoring system, the patient is due to fill his medications. He was last here 1 month ago. According to the CDC guidelines, his morphine mEq is 32 MME per day. PHYSICAL EXAMINATION: GENERAL: This is a well-developed, well-nourished, slightly obese gentleman who is alert and orientated. His affect is appropriate. HEENT: Normocephalic, atraumatic. Extraocular eye muscles are intact. The patient is wearing glasses and a mask. NECK: Without adenopathy or JVD. EXTREMITIES: His upper extremity strength judged to be 5/5 in all major muscle groups. He is without significant scoliosis, kyphosis or lordosis. He moves with a very slow antalgic gait. Reports pain is increased in his right hip greater than left, but both are very painful with abduction of his hips. Pain is also located in his lumbosacral region of his back. IMPRESSION: 1. Lumbar radiculopathy in the L4-L5 dermatomal distribution. 2. Successful trial of the spinal cord stimulator, awaiting surgery. 3. Bilateral hip osteoarthritis. 4. History of cervical radiculopathy. 5. History of hepatitis. 6. Hypertension. 7. Chronic obstructive pulmonary disease. 8. Complex medical management under written opioid agreement. PLAN: 1. We discussed treatment options with the patient today. The patient finds his hydromorphone gives him sufficient analgesic to allow him to participate in his activities of daily living, though he is having increasing pain and able to do less due to his hips have become more problematic. He did recently see Dr. Weeks and is going to have his right hip operated on hopefully in April, and then 4 months later per his report have his left hip replaced. The patient was wondering about having his spinal cord stimulator implanted. I discussed with him that I believe it would be more beneficial for him to have his hips replaced. He may not need the spinal cord stimulator if that pain generator is removed. His back pain may be still present, but less intense after his surgery. The patient verbalizes understanding. He will wait that surgery until later in the year. 2. We did discuss his medications pre and postop. I explained to him to try to take the lowest most effective dose of hydromorphone one a day prior to surgery for at least 5 days. Then postoperatively, he can take medication from Dr. Micky. He was instructed to call our office what prescriptions he does provided for him, but encouraged him to continue his Lyrica postoperatively. 3. The patient reports that he was unable to take three doses of Lyrica on some days due to his sleeping schedule, but he feels that, that medicine is very [facility] [address] [place] [address] PAIN MANAGEMENT CONSULTATION Name: BRYSON OLIVA JR Room #: REG [facility]#: [id number] Admission: 03/26/20 Attend Phys: Judie Melendez Discharge: Date of : 52 Report #: [id number] beneficial in helping his radicular symptoms. I explained to the patient that if need be, he may take 2 tablets one time a day and one tablet 12 hours later. The patient verbalizes understanding. 4. Scripts will be refilled for him for hydromorphone 4 mg, #60; Lyrica 50 mg, #90 with one additional refill. These will be sent electronically by Dr. Stinson to his pharmacy and I will send his tizanidine 2 mg b.i.d., #60, with one additional refill to his pharmacy. This should get him through his surgery for a followup in 2 months. The patient is seen in collaboration today with Dr. Kenny Stinson. <ELECTRONICALLY SIGNED> By: Judie Melendez 03/27/20 1428 1044 1232 Judie Melendez /regino
== END ==
LOC: PAIN 02-29 11:14
DX: M54.16 Radiculopathy, lumbar region (principal); M54.5 Low back pain; M25.551 Pain in right hip; M25.552 Pain in left hip; M16.0 Bilateral primary osteoarthritis of hip; J44.9 Chronic obstructive pulmonary disease, unspecified; I10 Essential (primary) hypertension; F11.20 Opioid dependence, uncomplicated; Z86.19 Personal history of other infectious and parasitic diseases; Z87.39 Personal history of other diseases of the musculoskeletal system and connective tissue; Z79.899 Other long term (current) drug therapy

== ENCOUNTER → 2020-05-14 | Outpatient (CLI) | payer OTHER ==
[~2020-05-14] VITALS: Ht 162.6 cm; Wt 107.0 kg
[2020-05-14 14:49] VITALS: BP 151/105
--- NOTE | 2020-05-14 15:01 | NUR ---
Pain Clinic Assessment: 1. History of Osteoarthritis: BILAT HIPS History of Rheumatoid Arthritis: NO 2. Height: 5 ft. 4 in. 162.6 cm. Weight: 236.0 lb. oz. 107.049 kg. Patient's BMI: 40.5 3. Vital Signs: BP: 151/105 Pulse: 98 Resp: 22 Temp: 02 Sat: 100 ECG Mon: 4. Pain Intensity: 7 5. Fall Risk: Dizziness: N Needs help standing or walking: N Fallen in the last 3 months: Y Fall risk comments: FELL 2 MONTHS AGO DID NOT SEEK MEDICAL 6. Patient on Blood Thinner: None 7. History of Hypertension: Y 8. Opioid Therapy greater than 6 weeks: Y Opiate Contract Signed: 09/16/17 9. Risk Assessment Tool Provided: LOW-0 10. Functional Assessment Tool: 11. Recreational Drug Use: Never Drug Type: Tobacco Use: Current Every Day Smoker Tobacco Type: Amount or Packs/day: How Many Years: Alcohol Use: Yes Frequency: Quant:
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
== END | disposition home or self-care (01) ==
LOC: PAIN 06:50
PROVIDERS: ATTEND Anesthesiology Pain Medicine
DX: M54.12 Radiculopathy, cervical region (principal); G89.29 Other chronic pain; I10 Essential (primary) hypertension; J44.9 Chronic obstructive pulmonary disease, unspecified; K21.9 Gastro-esophageal reflux disease without esophagitis; F17.210 Nicotine dependence, cigarettes, uncomplicated; Z98.890 Other specified postprocedural states; Z79.899 Other long term (current) drug therapy

== ENCOUNTER → 2020-06-10 | Outpatient (CLI) | payer OTHER ==
[~2020-06-10] MED LIST changes: +ALPRAZOLAM 0.0.25 MG PO; +PROAIR RESPICL90 MCG INH; +SYMBICORT160 MCG/4. INH; -SYMBICORT80 MCG/4.1 INH
== END ==
LOC: RAD 09:13
PROVIDERS: ATTEND Internal Medicine Pulmonary Disease
DX: J44.9 Chronic obstructive pulmonary disease, unspecified (principal)

== ENCOUNTER → 2020-06-12 | Outpatient (CLI) | payer OTHER | LOC: SJCVC 11:25 | PROVIDERS: ATTEND Internal Medicine | DX: R00.0 Tachycardia, unspecified (principal); I10 Essential (primary) hypertension; E78.5 Hyperlipidemia, unspecified; J44.1 Chronic obstructive pulmonary disease with (acute) exacerbation; G47.33 Obstructive sleep apnea (adult) (pediatric); M16.11 Unilateral primary osteoarthritis, right hip; F17.210 Nicotine dependence, cigarettes, uncomplicated; M19.90 Unspecified osteoarthritis, unspecified site; M06.9 Rheumatoid arthritis, unspecified; E66.9 Obesity, unspecified; Z79.899 Other long term (current) drug therapy; Z99.89 Dependence on other enabling machines and devices; Z87.19 Personal history of other diseases of the digestive system ==

== ENCOUNTER 2020-07-08 18:33 | Inpatient (IN) | payer OTHER ==
[~2020-07-08] VITALS: Ht 165.1 cm; Wt 114.9 kg
[2020-07-08 18:56] VITALS: BP 146/78
[2020-07-08 19:36] LABS: CALCIUM 9.3 mg/dL (8.5-10.1); CREATININE 0.9 mg/dL (0.7-1.3); POTASSIUM 4.1 mmol/L (3.5-5.1)
[2020-07-08 19:46] LABS: ALBUMIN 3.1 g/dL (3.4-5.0); TOTAL BILIRUBIN 0.2 mg/dL (0.2-1.0); TOTAL PROTEIN 7.6 g/dL (6.4-8.2); TROPONIN-I 0.09 ng/mL (<0.06)
[2020-07-08 22:45] VITALS: BP 138/69
--- NOTE | 2020-07-08 22:52 | NUR ---
HANDS OFF TOOL FAXED TO [facility] WITH LAB AND XRAY RESULTS, CT REPORT
[2020-07-08 23:48] VITALS: BP 154/80
[2020-07-08 23:54] VITALS: BP 154/80
[2020-07-09] VITALS: BP 155/91
--- NOTE | 2020-07-09 00:35 | NUR ---
CONTACTED MITCH ARCHER REGARDING OXYCODONE REQUEST FOR 15 MG PRN
[2020-07-09 00:42] LABS: HEMATOCRIT 30.5 % (42.0-52.0); HEMOGLOBIN 10.1 gm/dL (14.0-18.0); MCH 32.7 pg (26.0-34.0); MCHC 33.1 g/dL (28.0-37.0); MCV 98.8 fL (80.0-100.0); RBC 3.08 mil/uL (4.50-6.00); RDW 16.5 % (10.5-14.5); WBC 7.3 thou/uL (4.0-11.0)
[2020-07-09] MEDS ORDERED: TYLENOL325 M1 PO (01:41)
[2020-07-09] MEDS ORDERED: IRON325 M1 PO (01:45)
[2020-07-09] MEDS ORDERED: ASA81BEC PO (01:46)
[2020-07-09] MEDS ORDERED: MIRALAX17 G1 PO (01:48)
[2020-07-09] MEDS ORDERED: PROTONIX40 M2 PO (01:49)
[2020-07-09] MEDS ORDERED: ROXICODONE5 M2 PO (01:54)
[2020-07-09 02:14] VITALS: BP 155/91
--- NOTE | 2020-07-09 02:18 | NUR ---
PATIENT IS A NEW ADMISSION TO THE UNIT THIS SHIFT. HE ARRIVED VIA CART FROM THE ER AND WAS ABLE TO AMBULATE TO THE BED INCIDENT FREE. PATIENT IS FULLY ALERT AND ORIENTED AND ABLE TO PARTICIPATE IN ADMISSION. PATIENTS CHIEF COMPLAINTS ARE SHORTNESS OF AIR AND PAIN IN HIP. NURSE TO COMPLETE ADMISSION AND INITIATE PLAN OF CARE.
[2020-07-09 04:39] LABS: ABSOLUTE NEUTROPHILS 4.7 thou/uL (1.4-8.2); EOSINOPHILS 0.9 % (0.0-3.0); HEMATOCRIT 31.7 % (42.0-52.0); LYMPHOCYTES 17.4 % (24.0-44.0); MCH 31.1 pg (26.0-34.0); MCHC 31.3 g/dL (28.0-37.0); MCV 99.4 fL (80.0-100.0); MONOCYTES 10.5 % (1.0-8.0); PLATELET COUNT 292 thou/uL (150-400); POLYS 70.2 % (36.0-66.0); RBC 3.19 mil/uL (4.50-6.00); RDW 16.7 % (10.5-14.5); WBC 6.6 thou/uL (4.0-11.0)
[2020-07-09 05:01] VITALS: BP 137/62
[2020-07-09 05:03] LABS: CALCIUM 9.3 mg/dL (8.5-10.1); CREATININE 1.1 mg/dL (0.7-1.3); POTASSIUM 3.6 mmol/L (3.5-5.1); TROPONIN-I 0.09 ng/mL (<0.06)
[2020-07-09 08:01] VITALS: BP 128/59
[2020-07-09 11:55] VITALS: BP 134/76
--- NOTE | 2020-07-09 12:58 | NUR ---
met with patient who admits with PE. He had R ELDA on 06/[address] [facility], He transitioned for rehab care at [facility]. He does not want to return. he reports he is in semipvt room. He also alerted he was not feeling well and phys at facility told him possible PNA. He went to Dr Swan's office who alerted go to ER. Patient feels facility was not hearing him regarding his health concern. Therapy evals ordered. Discussed post acute list. 5N to eval. Patient prefers 5N if accepted as he would have continuity of care. Patient resides in 3 level home 13 steps to bedroom 13 steps to basement. Casemgt following.
--- NOTE | 2020-07-09 13:36 | 2DMMODE ---
[facility] [address] [place] [address] 2 D/M-MODE ECHOCARDIOGRAM Name: BRYSON OLIVA Room #: 213-P ADM IN M.R.#: [id number] Admission: 07/08/20 Attend Phys: Kaylene Lemus Discharge: Date of : 52 Report #: [id number] THIS REPORT FOR: cc: Mitesh Parker James A. DO Lammoglia, Francisco J. MD ~ APPROVED REPORT Study performed: 07/09/2020 12:37:14 EXAM: Comprehensive 2D, Doppler, and color-flow Echocardiogram Patient Location: Bedside Room #: 213 Status: routine BSA: 2.19 HR: 114 bpm BP: 134/76 mmHg Rhythm: Sinus Tach Other Information Study Quality: Adequate Indications Pulmonary Embolism. Hx: COPD, HTN, morbid obesity. 2D Dimensions RVDd: 34.94 mm IVSd: 12.00 (7-11mm) LVOT Diam: 23.00 (18-24mm) LVDd: 48.21 mm PWd: 12.00 (7-11mm) LVDs: 30.52 (25-40mm) Aortic Root: 34.30 mm Volumes Left Atrial Volume (Systole) Single Plane 4CH: 33.59 mL Single Plane 2CH: 33.71 mL Aortic Valve AoV Peak Carlitos.: 1.47 m/s AO Peak Gr.: 8.59 mmHg LVOT Max P.46 mmHg LVOT Max V: 1.45 m/s DAYSI Vmax: 4.33 cm2 [facility] [place] [address] 2 D/M-MODE ECHOCARDIOGRAM Name: BRYSON OLIVA Room #: 213-P [facility] IN .R.#: [id number] Admission: 07/08/20 Attend Phys: Kaylene Alvarado Discharge: Date of : 51 Report #: [id number] Mitral Valve E/A Ratio: 0.8 MV Decel. Time: 138.34 ms MV E Max Carlitos.: 0.95 m/s MV A Carlitos.: 1.16 m/s MV PHT: 40.12 ms IVRT: 53.06 ms Pulmonary Valve PV Peak Carlitos.: 1.00 m/s PV Peak Gr.: 3.99 mmHg Tricuspid Valve RAP Estimate: 5.00 mmHg Left Ventricle The left ventricle is normal size. There is normal LV segmental wall motion. Mild concentric left ventricular hypertrophy. Left ventricular systolic function is normal. LVEF is 65%. Mild diastolic dysfunction is present (impaired relaxation pattern). Right Ventricle The right ventricle is normal size. The right ventricular systolic function is normal. Atria The left atrium size is normal. The right atrium size is normal. Aortic Valve The aortic valve is normal in structure. No aortic regurgitation is present. There is no aortic valvular stenosis. Mitral Valve The mitral valve is normal in structure. There is no mitral valve regurgitation noted. No evidence of mitral valve stenosis. Tricuspid Valve The tricuspid valve is normal in structure. There is no tricuspid valve regurgitation noted. Unable to assess PA pressure. Pulmonic Valve Pulmonic valve is not well visualized. Great Vessels The aortic root is normal in size. The ascending aorta is normal in size. IVC is normal in size and collapses >50% with [facility] [address] [place] [address] 2 D/M-MODE ECHOCARDIOGRAM Name: BRYSON OLIVA Room #: 213-[facility] IN [facility].#: [id number] Admission: 07/08/20 Attend Phys: Kaylene Alvarado Discharge: Date of : 52 Report #: [id number] inspiration. Pericardium There is no pericardial effusion. <Conclusion> The left ventricle is normal size. LVEF is 65%. The aortic valve is normal in structure. The mitral valve is normal in structure. The tricuspid valve is normal in structure. There is no tricuspid valve regurgitation noted. Unable to assess PA pressure. Pulmonic valve is not well visualized. There is no pericardial effusion. <ELECTRONICALLY SIGNED> By: Adi Calderon MD 07/09/20 1336 1336 1336 Adi Calderon MD /INF
--- NOTE | 2020-07-09 14:17 | NUR ---
Nutrition: Pt admit with progressive dypnea, PE, recent hip surgery. Received consult related to obesity. PMH: COPD, HTN, hepatitis CA, volume overload. On lasix. 2 weights on admit, 231# and 253#. Pt reports weighing 253# 4 years ago and that 231# accurate. Places BMI at 38, class 2 obesity. Pt voices he has been trying to improve his eating habits by portion control. Explained heart healthy guidelines and need to control Na+. Pt denies need for full education but agreed for RD to leave diet materials. Would benefit from continued lifestyle changes and weight loss. Good appetite. Low nutrition risk.
--- NOTE | 2020-07-09 17:09 | NUR ---
PT CARE ASSUMED APPROX 0700. ASSESSMENT CHARTED. PT DENIES SOA AND N/V. REPORTS ADEQUATE PAIN MANAGEMENT OF RIGHT HIP PAIN. VSS. UP WITH MOD ASSIST AND USE OF WALKER/GAITBELT. PT WAS LIBERATED FROM O2 THIS SHIFT. DENIES QUESTIONS OR CONCERNS REGARDING POC. TOLERATING POC. NO DISTRESS NOTED.
[2020-07-09 19:39] VITALS: BP 129/74
--- NOTE | 2020-07-10 04:04 | NUR ---
Assumed pt care at 1900. Pt is alert and oriented. No sign of distress noted in pt. Fall precaution in place. Call light within reach. Denies any pain. Assessment completed and documented. Scheduled meds administered to pt. Tolerated po intake. No acutte event overnight. No further needs at this time. Continue to monitor.
[2020-07-10 05:29] VITALS: BP 128/65
[2020-07-10 05:44] LABS: CALCIUM 8.8 mg/dL (8.5-10.1); POTASSIUM 3.8 mmol/L (3.5-5.1); TROPONIN-I 0.08 ng/mL (<0.06)
[2020-07-10 07:50] VITALS: BP 97/52
--- NOTE | 2020-07-10 08:12 | EKG ---
[facility] [place] [address] [place] [address] ELECTROCARDIOGRAM REPORT Name: BRYSON OLIVA Room #: 213-P ADM IN M.R.#: [id number] Admission: 07/08/20 Attend Phys: Kaylene Lemus Discharge: Date of : 52 Report #: [id number] THIS REPORT FOR: cc: Mitesh Parker James A. DO Couchonnal, Luis F. MD ~ THIS REPORT FOR: //name// [facility] ED Test Date: 2020-07-08 Test Time: 19:49:37 Pat Name: BRYSON OLIVA Department: Room: 213 Gender: M Continuous Wave Operator: leif : 1950 Requested By: Norbert Jack Order Number: [id number] MD: John Ruvalcaba Measurements Intervals [place] Rate: 96 P: 52 IN: 146 QRS: -4 QRSD: 89 T: 48 QT: 366 QTc: 463 Interpretive Statements Sinus rhythm Low voltage, precordial leads Compared to ECG 02/05/2020 11:09:28 Low QRS voltage now present Sinus tachycardia no longer present Ventricular premature complex(es) no longer present Electronically Signed On 07-10-2020 8:12:14 CDT by John Ruvalcaba [email or web address] <ELECTRONICALLY SIGNED> By: John Ruvalcaba MD 07/10/20811 48 48 John Ruvalcaba MD /EPI
[2020-07-10] MEDS ORDERED: DOXYCYCLINE HYC50 MG PO (09:31)
[2020-07-10] MEDS ORDERED: ELIQUIS5 MG PO (09:31)
[2020-07-10] MEDS ORDERED: TRANSDERM-SCOP1 EACH TRANSDERM (09:42)
[2020-07-10 09:47] VITALS: BP 130/82
--- NOTE | 2020-07-10 10:49 | NUR ---
[facility] acute rehab has accepted the pt and has a bed for him today. Pt is medically ready for dc to rehab if agreeable. Pt is discussing with his going to acute rehab vs home with HH. Nursing to f/u with the pt and if agreeable dc to [facility] this morning.
--- NOTE | 2020-07-10 10:56 | NUR ---
RECEIVED PT'S CARE AROUND 0730; PT. ON BED; ALERT; DURING AM ASSESSMENT AOX4; AM MEDICATIONS ON GIVEN; C/O PAIN OVER HIP; REFUSED PRN PAIN MEDICATION; EDUCATED ABOUT D/C PROCESS & NEED TO KNOW DECISION AFTER D/C HOSPITAL; ST. UNDERSTANDING; ST ON THE MONITOR; WORKER WITH PT & OT; O2 SAT ABOVE 90%; ELEVATED HR WITH EXERTION; ASSESSMENT CHARGED; FOLLOWING POC; WILL WORKING ON D/C PROCESS;
== END 2020-07-10 15:23 | DRG 175 ==
LOC: ER 18:33 → 2N 22:22 → EROBS 22:22 → 2N 23:53
PROVIDERS: Emergency Medicine; Nurse Practitioner Family; ADMIT Hospitalist; ATTEND Hospitalist
PROC: 5A09357 Assistance with Respiratory Ventilation, Less than 24 Consecutive Hours, Continuous Positive Airway Pressure (ICD-10-PCS; principal; 2020-07-09)
DX: I26.99 Other pulmonary embolism without acute cor pulmonale (principal); J18.9 Pneumonia, unspecified organism; J96.01 Acute respiratory failure with hypoxia; J44.0 Chronic obstructive pulmonary disease with (acute) lower respiratory infection; Z68.41 Body mass index [BMI] 40.0-44.9, adult; I10 Essential (primary) hypertension; G47.00 Insomnia, unspecified; G47.33 Obstructive sleep apnea (adult) (pediatric); K59.00 Constipation, unspecified; Z96.643 Presence of artificial hip joint, bilateral; F17.210 Nicotine dependence, cigarettes, uncomplicated; M47.26 Other spondylosis with radiculopathy, lumbar region; M47.22 Other spondylosis with radiculopathy, cervical region; E66.9 Obesity, unspecified; Z86.19 Personal history of other infectious and parasitic diseases; Z47.89 Encounter for other orthopedic aftercare; Z79.899 Other long term (current) drug therapy
CPT/HCPCS: 10081

== ENCOUNTER 2020-07-10 12:49 | Inpatient (IN) | payer OTHER ==
[~2020-07-10] VITALS: Ht 162.6 cm; Wt 104.8 kg
--- NOTE | ~2020-07-10 | PLAN ---
[facility] [place] [address] [address] [place] [address] REHAB UNIT PLAN OF CARE Name: BRYSON OLIVA JR Room #: 510-P [facility] IN ..#: [id number] Admission: 07/10/20 Attend Phys: Hemal Goldman MD Discharge: Date of : 51 Report #: [id number] THIS REPORT FOR: //name// CC: Hemal Parker DATE OF SERVICE: 07/12/2020 PROGRESS NOTE/OVERALL PLAN OF CARE SUBJECTIVE: The patient is seen back today in followup. He was seen earlier in no distress. Temperature 36.9, pulse 106, respirations 18, blood pressure 126/74. He is on 2 liters nasal cannula. Hutchinson were noted to have been removed yesterday. The order was given for Steri-Strips in place. The patient has been working in therapies with transfer standby assistance. Gait 200 feet, supervision front-wheeled walker. He is min assist to go up and down 12 stairs. Lower body dressing standby assistance. ASSESSMENT: This is a 69-year-old male with the following problem list: 1. Pulmonary rehabilitation. 2. Acute hypoxic respiratory failure. 3. Left upper lobe pulmonary embolism. 4. Healthcare-associated pneumonia. 5. Degenerative arthritis, status post right total hip arthroplasty on 06/17/2020, weightbearing as tolerated. 6. Lumbar radiculopathy. 7. Obstructive sleep apnea, on home CPAP. 8. Hypertension. 9. Chronic obstructive pulmonary disease. 10. Obesity. PLAN: The overall plan of care is based on the preadmission screen, post-admission physician evaluation and information garnered from therapy assessments. 1. Estimated length of stay probably going to be at least 7-14 days pending progress. 2. Medical prognosis is reasonably good. 3. Anticipated interventions includes the interdisciplinary acute inpatient rehabilitation program. 4. Anticipated functional outcomes would be for the patient to become modified independent with transfers, mobility and ADLs utilizing the walker. 5. Discharge destination would be back to the home setting where he lives with his . 6. Expected therapy by discipline includes PT and OT 1-1/2 hours per day each [address] [address] REHAB UNIT PLAN OF CARE Name: BRYSON OLIVA Room #: 510-P [facility].#: [id number] Admission: 07/10/20 Attend Phys: Hemal Goldman MD Discharge: Date of : 51 Report #: [id number] five days a week throughout the duration of the acute inpatient rehabilitation stay. By: [id number] Hemal Goldman MD /[facility]
[~2020-07-10 12:49] MED LIST changes: +ASA81BEC PO; +DOXYCYCLINE HYC50 MG PO; +ELIQUIS5 MG PO; +IRON325 M1 PO; +MIRALAX17 G1 PO; +PROTONIX40 M2 PO; +TRANSDERM-SCOP1 EACH TRANSDERM; +TYLENOL325 M1 PO
[2020-07-10 16:21] VITALS: BP 131/77
--- NOTE | 2020-07-10 18:13 | NUR ---
PT TO THE UNIT FROM 2N. ORIENTED TO ROOM AND BEDSPACE. NO CO'S OF PAIN OR NAUSEA. SARAHY DIET AND FLUIDS. PT WITH 2-3 + ODEMA TO FEET BI- LATERALLY. USES CPAP AT NIGHT, NO CO'S AT THE PRESENT TIME. APPEARS TO BE RESTING COMFORTABLY.
[2020-07-10 20:00] VITALS: BP 131/77
--- NOTE | 2020-07-10 23:45 | NUR ---
PT ALERT AND ORIENTED X 4. TRANSFERRED FROM BED TO RECLINER AT START OF SHIFT WITH ASSIST X 1. TRANSFERRED TO BED AT HS WITHOUT DIFFICULTY. RIGHT HIP DRESSING C/D/I. PT C/O PAIN IN RIGHT HIP. OXYCODONE GIVEN ORDERED. CPAP ON DURING THE NIGHT. BED ALARM ON FOR SAFETY. PT APPEARS TO BE SLEEPING ON HOURLY ROUNDS.
[2020-07-11 05:31] LABS: HEMATOCRIT 30.8 % (42.0-52.0); HEMOGLOBIN 9.8 gm/dL (14.0-18.0); MCH 31.5 pg (26.0-34.0); MCHC 31.9 g/dL (28.0-37.0); MCV 98.8 fL (80.0-100.0); RBC 3.12 mil/uL (4.50-6.00); RDW 16.3 % (10.5-14.5); WBC 5.9 thou/uL (4.0-11.0)
[2020-07-11 06:02] LABS: CALCIUM 9.3 mg/dL (8.5-10.1); POTASSIUM 4.1 mmol/L (3.5-5.1)
[2020-07-11 07:28] VITALS: BP 130/78
--- NOTE | 2020-07-11 12:15 | NUR ---
pt up working with physical therapy. intro to cm and dcp. " all i want is 2 little sinus pills for my sinus headache, 69cents at qt. live with and children. have support at home. have stairs into and lots stairs inside home"/sharon. cm passed on information at bout sinus headache to bedside nurse. will cont following as needed for dc needs.
--- NOTE | 2020-07-11 16:12 | NUR ---
ASSUMED CARES AT 0700. PT AWAKE, ALERT AND ORIENTED*4. C/O RIGHT HIP PAIN PAIN MEDICATION ADMINISTERED NEEDED. HR AND RESP ELEVATED THIS AM, WILL CONTINUE TO MONITOR. ALL OTHER VITALS REMAIN STABLE. INCISION ON RIGHT HIP REMAINS DRY, 29 SOBEIDA REMOVED AND STERI STRIPS PLACE, NO DRAINAGE OR FOUL ODOR NOTED. PT CONTINUES TO HAVE BLE EDEMA, EXTREMITIES ELEVATED AND TEDHOSE IN PLACE. PT UP WITH SBA, GB AND WALKER AND TOLERATED WELL. Q1H VISUAL CHECKS. CALL LIGHT WITHIN REACH. FALL PRECAUTIONS IN PLACE
[2020-07-11 20:55] VITALS: BP 126/56
--- NOTE | 2020-07-12 01:39 | NUR ---
ASSUMED PT CAREA ROUND 193. AXOX4. R HIP INCISION CDI. NO S/S ACUTE DISTRESS NOTED OR REPORTED AT THIS TIME. WILL CONT TO MONITOR FOR ANY CHNAGES IN CONDITION.
[2020-07-12 08:00] VITALS: BP 126/74
--- NOTE | 2020-07-12 19:35 | NUR ---
Alert and orientated X4. Calm and pleasant all day, cooperative with cares and meds. Ambulates with walker with steady gait under supervision. Requesting med for sinus GOODSON. Breath sounds clear t/o, CPAP removed at 0730. Reg HR auscultated. Color pink with brisk capillary refill and palpable peripheral pulses. +3 edema in feet, new pair of knee high ARRON hose applied. Independent with voiding with urinal. Active bowel sounds over soft, rounded abdomen. States he feels constipated, senna and miralax given with AM meds. Currently in room without s/o distress.
[2020-07-12 19:38] VITALS: BP 128/68
--- NOTE | 2020-07-13 04:03 | NUR ---
MEDICATED TWICE FOR HIP PAIN. MED OBTAINED FOR SINUS HEADACHE. TEDS OFF FOR OVERNIGHT, BOTH FEET EDEMATOUS, RIGHT FOOT 3+ EDEMA. MELATONIN GIVEN AND ABLE TO SLEEP AT LEAST 2 HOURS
[2020-07-13 08:39] VITALS: BP 109/62
--- NOTE | 2020-07-13 18:42 | NUR ---
AAOX4 VERY PLEASANT AND COOPERATIVE. USES CPAP WHEN NAPPING. GOOD APPETITE FOR MEALS.
[2020-07-13 20:49] VITALS: BP 124/75
--- NOTE | 2020-07-14 03:53 | NUR ---
TOOK ALL OF HIS PRN MEDS EXCEPT TYLENOL AT HS IN EFFORT TO FALL ASLEEP. SLEPT WITH CPAP ON FOR ALMOST 3 HOURS AND THEN WAS AWAKE ALMOST AN HOUR, STATES HE TAKES TRAZADONE AT HOME WHEN CONFRONTED WITH SIMILAR INSOMNIA, HE PLANS TO TALK TO DOCTOR TODAY TO SEE IF HE CAN TAKE IT HERE. FOR NOW HE HAS APPEARED TO SLEEP SINCE 2 AM. USING URINAL SINCE HIP PAIN INCREASES WHEN UP. INCISION LOOKS GREAT WITH STERISTRIPS INTACT.
[2020-07-14 08:00] VITALS: BP 109/55
--- NOTE | 2020-07-14 15:41 | NUR ---
ASSUMED CARES AT 0700. PT AWAKE, ALERT AND ORIENTED*4. C/O LEFT HIP PAIN, PAIN MEDICATION ADMINISTERED ORDERED. VITALS REMAIN STABLE. LEFT HIP INCISION REMAINS INTACT AND DRY. STERI STRIPS REMAINS IN PLACE. PT UP WITH 1 SBA, GB AND WALKER AND TOLERATED WELL. PARTICIPATED WELL IN ALL THERAPIES. Q1H VISUAL CHECKS. CALL LIGHT WITHIN REACH
[2020-07-14 19:15] VITALS: BP 126/80
--- NOTE | 2020-07-14 23:11 | NUR ---
ASSUMED PT CARE AROUND 1930. AXOX4. CALLS APPROPRIATELY FOR HELP. VSS. NO S/S ACUTE DISTRESS NOTED OR REPORTED AT THIS TIME. CARE TRANSFERRED TO ANOTHER RN AT THIS TIME.
[2020-07-15 06:09] LABS: HEMATOCRIT 31.3 % (42.0-52.0); HEMOGLOBIN 10.2 gm/dL (14.0-18.0); MCH 31.6 pg (26.0-34.0); MCHC 32.4 g/dL (28.0-37.0); MCV 97.4 fL (80.0-100.0); PLATELET COUNT 201 thou/uL (150-400); RBC 3.22 mil/uL (4.50-6.00); RDW 16.1 % (10.5-14.5); WBC 6.2 thou/uL (4.0-11.0)
--- NOTE | 2020-07-15 06:23 | NUR ---
ASSUMED PT CARE AT AROUND 2300 HRS. PT CALLS APPROPRIATELY. HE IS SBA IN THE ROOM WITH WALKER. USES URINAL, VOIDS ADEQUATELY. MANATINS HIS CPAP AT [facility].ELEVATING BLE DUE TO EDEMA. AFEBRILE. NO RESP DISTRESS, MANAGING WELL ON THE WHILE SLEEPING.NO COUGH NOTED.
[2020-07-15 06:33] LABS: CALCIUM 8.6 mg/dL (8.5-10.1); CREATININE 1.1 mg/dL (0.7-1.3); MAGNESIUM 1.9 mg/dL (1.8-2.4); POTASSIUM 3.7 mmol/L (3.5-5.1)
[2020-07-15 08:14] VITALS: BP 101/58
[2020-07-15 11:31] LABS: ABSOLUTE NEUTROPHILS 4.3 thou/uL (1.4-8.2)
--- NOTE | 2020-07-15 13:16 | NUR ---
team meeting, recommendation: , stays at home. he has been. to assist with medication. will need fww. outpt neruo phys [phone]. ( pt, ot, nursing)
--- NOTE | 2020-07-15 17:44 | NUR ---
PT ALERT AND ORIENTED TIMES FOUR. VSS. PT C/O PAIN PRN AND SCHEDULED PAIN MEDICATIONS CONTROLLING PAIN WELL. PT TOLERATES MEDS AND MEALS. PT WORKED WELL WITH PT/OT TODAY. PT CHANGED TO MOD I WITH WALKER TODAY. PLANS TO DISCHARGE HOME TOMORROW. PT PROGRESING TOWARDS POC GOALS.
[2020-07-15 19:05] VITALS: BP 138/72
[2020-07-15 20:10] VITALS: BP 138/72
--- NOTE | 2020-07-16 00:12 | NUR ---
PT ASSESSMENT COMPLETED AND VSS. MEDS GIVEN ORDERED AND WELL TOLERATED. MOD I IN ROOM WITH WALKER. STEADY. C/O LOWER BACK PAIN. ICE AND MEDICATION HELPFUL. CPAP ON WITH 2L AT HS. PT REFUSED CONTINOUS 02 SAT MONITOR AND RT AWARE. SLEEPING ON AND OFF. PT EXCITED ABOUT D/C HOME TOMORROW. WILL CONTINUE TO MONITOR FREQUENTLY.
[2020-07-16 07:15] VITALS: BP 128/75
[2020-07-16] MEDS ORDERED: ALPRAZOLAM 0.0.25 M1 PO (10:29)
[2020-07-16] MEDS ORDERED: ROXICODONE30 MG PO (10:29)
[2020-07-16] MEDS ORDERED: TIZANIDINE HCL 22 M1 PO (10:33)
[2020-07-16] MEDS ORDERED: LASIX 40 MG TAB40 M2 PO (10:38)
[2020-07-16] MEDS ORDERED: ANBESOL9 GM TOP (10:38)
[2020-07-16] MEDS ORDERED: PROTONIX40 M2 PO (10:49)
[2020-07-16 12:05] VITALS: BP 138/72
[2020-07-16 12:11] VITALS: BP 138/72
--- NOTE | 2020-07-16 13:04 | NUR ---
FAXED REFERRAL TO [facility] HH SPOKE WITH INTAKE THEY RECEIVED REFERRAL AND WILL ACCEPT. PT DISCHARGING TODAY FAXED DC ORDERS/SUMMARY TO HH RECEIVED CONFIRMATION AND THEY WILL NOTIFY PT TIME OF VISITS.
--- NOTE | 2020-07-16 20:59 | NUR ---
ASSUMED CARE OF PT AT 0700. PT IS A&OX4 AND VITAL SIGNS ARE STABLE. ORDERS FOR DISCHARGE THIS SHIFT. ON UNIT FOR DISCHARGE AT 1400. REVIEWED DISCHARGE INSTRUCTIONS, MEDICATIONS, WOUND CARE, AND DISCHARGE EDUCATION WITH PT AND . PT AND DENIED QUESTIONS AT TIME OF DISHCARGE. NURSE ON UNIT PRIOR TO DISCHARGE TO MEET WITH PT AND MADE ARRANGEMENTS FOR F/U APPOINTMENTS FOR PT. PT AND INSTRUCTED TO MAINTENANCE SERVICES DISPATCHER ELIQUIS AT OUTPATIENT PHARMACY AND ENSURE THAT COUPON WAS IN BAG WITH MEDICATIONS PRIOR TO LEAVING. PT INFORMED AT THAT TIME THAT OTHER MEDICATIONS WERE SENT TO PHARMACY OF CHOICE. PT AND ASSISTED TO [facility] FOR DISCHARGE. PER AIDE, PT REQUIRED SET UP ASSISTANCE TO TRANSFER TO CAR. BELONGINGS REMOVED BY PT AND AT TIME OF DISCHARGE.
--- NOTE | 2020-07-18 09:46 | H ---
[facility] [place] [address] HISTORY AND PHYSICAL Name: GISSELL OLIVARUKHSANA Peter Room #: 510-P [facility] ..#: [id number] Admission: 07/10/20 Attend Phys: Hemal Goldman MD Discharge: 07/16/20 Date of : 52 Report #: [id number] THIS REPORT FOR: cc: Mitesh Parker,Hemal Gonzalez MD ~ CC: Hemal Parker DATE OF SERVICE: 07/11/2020 HISTORY AND PHYSICAL/POSTADMISSION PHYSICIAN EVALUATION HISTORY OF PRESENT ILLNESS: The patient is a 69-year-old -Vincentian male admitted to [facility] for increased shortness of breath. He had a right total hip arthroplasty on 06/17/2020 at [facility] and was discharged to a long term facility where he had been residing. He saw his pulmonary doctor and was complaining of increased shortness of breath and was sent to the Emergency Room where he was found to have acute hypoxic respiratory failure, pneumonia, left upper lobe pulmonary embolism. He was started on Lovenox given O2 and oral doxycycline. He was also given IV Lasix for lower extremity edema. Followed closely by the Pulmonary Service and the hospitalist service. He was felt to be ready and has now been admitted for acute in-hospital inpatient rehabilitation. As far his past medical history, allergies, home setting, habits, please see the full admission history and physical documentation. He has been a half pack a day smoker. SOCIAL HISTORY: Does live with his could stay on the ground level with half bathroom. does not work. He has got 13 steps up to his regular bedroom. MEDICATIONS: Please see the full medication listing. REVIEW OF SYSTEMS: See the full listing as noted. He denied any chest pain, shortness of breath or abdominal discomfort. Notes that he follows with Dr. Swan for cardiac issues and apparently typically tends to be tachycardic. PHYSICAL EXAMINATION: GENERAL: A 69-year-old -Vincentian male in no obvious distress. VITAL SIGNS: Last recorded temperature 97.8, pulse 109, respirations 22, blood pressure 130/79. NEUROLOGIC: He is alert. He is pleasant. HEENT: Appeared to be benign. He is on room air. Typically uses O2 with his CPAP. Facies are symmetric. [facility] [address] [place] [address] HISTORY AND PHYSICAL Name: BRYSON OLIVA Room #: 510-P [facility].#: [id number] Admission: 07/10/20 Attend Phys: Hemal Goldman MD Discharge: 07/16/20 Date of : 52 Report #: [id number] CHEST: Sounded clear. He might have some decreased diffuse breath sounds. CARDIOVASCULAR: Regular rate and rhythm. ABDOMEN: Bowel sounds positive, nontender. GENITOURINARY AND RECTAL: Deferred. EXTREMITIES: Functional range of motion of both upper extremities, social service manager appeared equal. No focal calf swelling. Prior right hip javier are noted. He is sit to stand, standby assistance. He is ambulating short distances with a front-wheeled walker. ASSESSMENT: A 69-year-old -Vincentian male with the following problem list: 1. Pulmonary rehabilitation. 2. Acute hypoxic respiratory failure. 3. Recent right total hip arthroplasty for degenerative arthritis on 06/17/2020, allowed weightbearing as tolerated. 4. Left upper lobe pneumonia. 5. Healthcare-associated pneumonia. 6. Lumbar radiculopathy. 7. Hypertension. 8. Chronic obstructive pulmonary disease. 9. Obesity. PLAN: The patient has been admitted for acute inpatient rehabilitation. From a postadmission physician evaluation perspective, there are no relevant changes since the preadmission screening. Please see the review of prior and current medical and functional conditions and comorbidities. Please see the patient's previous and current functional status. As far as risk of complications, he does have the multiple medical comorbidities as noted above. Initial plan of care involves the interdisciplinary acute inpatient rehabilitation program. Measurable functional goals would be for the patient to become modified independent with transfers, mobility, ADLs, so that he can hopefully return back to his prior living situation. Prognosis is reasonably good with estimated length of stay probably at least 7-14 days pending progress. Potential barriers would include his multiple medical comorbidities and decreased functional status. The patient meets diagnostic criteria for an acute in-hospital inpatient rehabilitation stay. He meets the medical necessity criteria. He does have the tolerance for therapies and has appropriate discharge goals back to the home setting. [address] [address] HISTORY AND PHYSICAL Name: BRYSON OLIVA JR Room #: 510-P [facility] [place] [facility].#: [id number] Admission: 07/10/20 Attend Phys: Hemal Goldman MD Discharge: 07/16/20 Date of : 52 Report #: [id number] ADDENDUM: He is to continue with his hip precautions. <ELECTRONICALLY SIGNED> By: Hemal Goldman MD 07/18/20 0946 [id number] [id number] Hemal Goldman MD /nt
== END 2020-07-16 15:06 | disposition home health service (06) | DRG 947 ==
PROVIDERS: Nurse Practitioner; Nurse Practitioner Family; ADMIT Physical Medicine & Rehabilitation; ATTEND Physical Medicine & Rehabilitation
PROC: 5A09457 Assistance with Respiratory Ventilation, 24-96 Consecutive Hours, Continuous Positive Airway Pressure (ICD-10-PCS; principal; 2020-07-10)
PROC: 5A09457 Assistance with Respiratory Ventilation, 24-96 Consecutive Hours, Continuous Positive Airway Pressure (ICD-10-PCS; 2020-07-12)
DX: R53.81 Other malaise (principal); J96.01 Acute respiratory failure with hypoxia; I26.99 Other pulmonary embolism without acute cor pulmonale; J18.9 Pneumonia, unspecified organism; J44.0 Chronic obstructive pulmonary disease with (acute) lower respiratory infection; M19.90 Unspecified osteoarthritis, unspecified site; M54.16 Radiculopathy, lumbar region; G47.33 Obstructive sleep apnea (adult) (pediatric); I10 Essential (primary) hypertension; E66.9 Obesity, unspecified; Z96.641 Presence of right artificial hip joint; F41.9 Anxiety disorder, unspecified; J45.909 Unspecified asthma, uncomplicated; M54.12 Radiculopathy, cervical region; F17.210 Nicotine dependence, cigarettes, uncomplicated; E87.70 Fluid overload, unspecified; Z68.39 Body mass index [BMI] 39.0-39.9, adult; Z79.82 Long term (current) use of aspirin; Z79.899 Other long term (current) drug therapy; Z86.19 Personal history of other infectious and parasitic diseases; Z83.6 Family history of other diseases of the respiratory system
CPT/HCPCS: 10112

== ENCOUNTER → 2020-07-30 | Outpatient (CLI) | payer OTHER ==
[~2020-07-30] VITALS: Ht 162.6 cm; Wt 109.4 kg
[~2020-07-30] MED LIST changes: +ALPRAZOLAM 0.0.25 M1 PO; +ANBESOL9 GM TOP; -BENAZEPRIL HCL20 MG PO; +DOXYCYCLINE 10100 MG PO; +LASIX 40 MG TAB40 M2 PO; +LOTENSIN10 MG PO; +ROXICODONE30 MG PO
--- NOTE | ~2020-07-30 | HPC ---
[facility] [address] [place] [address] PAIN MANAGEMENT CONSULTATION Name: GISSELL OLIVARUKHSANA Peter JR Room #: REG KAELYN Rodríguez#: [id number] Admission: 07/30/20 Attend Phys: Aby Stinson MD Discharge: Date of : 52 Report #: [id number] THIS REPORT FOR: cc: Mitesh Parker James A. DO Brown, N. Wayne MD ~ CC: Mitesh Stinson DATE OF SERVICE: 07/30/2020 CHIEF COMPLAINT: "I had a renal infection. HISTORY: The patient is a 69-year-old gentleman who has been followed in the pain clinic for quite some time. He has returned to the pain clinic for evaluation and renewal of his medications. He states that he did develop some type of infection in the renal area, mentioned having renal failure. States that his platelet levels changed. He had some problems breathing. He was felt to have had a blood clot. Continues to note some swelling in his leg. He is taking his pain pill. Does have pain, which he describes as [id number] in the hip. States that he has had a hip replacement. He was hospitalized for some time after the procedure. He has returned today to have his medications renewed. He feels that he is improving since the right hip replacement and the postoperative infection. Notes some pain in his left and right buttocks and pain in his knee. Rates his pain as 3 and can increase during the day to 7 at bedtime. Notes his pain is exacerbated with walking, standing, climbing stairs. He feels that his medications improve. He feels that his pain is improved with his current medications. Rest and Lyrica have been beneficial. ALLERGIES: No known drug allergies. CURRENT MEDICATIONS: Spiriva, oxycodone 10/325, tizanidine 2 mg b.i.d., Lyrica 50 mg t.i.d., hydromorphone 4 mg b.i.d., trazodone 50 mg at bedtime, albuterol p.r.n. shortness of breath, cholestyramine 4 mg, Zolpidem 10 mg, Ventolin q. 6 hours, magnesium oxide 400 mg, potassium 10 mEq, Symbicort 80/4.5 mg b.i.d., Lotensin 20 mg. PAIN CLINIC ASSESSMENT/PQRS: 1. The patient has some osteoarthritic changes in his back. He is not being treated for rheumatoid arthritis. 2. Height 5 feet 4 inches, weight 241 pounds, BMI is 41. 3. Vital signs: Blood pressure 112/66, pulse 104, respiratory rate 22, saturation 100%. 4. Pain intensity 3 in the morning, 7 at bedtime. 5. Fall risk: The patient fell about 2 months ago, [place] [address] PAIN MANAGEMENT CONSULTATION Name: BRYSON OLIVA Room #: REG [facility] Zachary#: [id number] Admission: 07/30/20 Attend Phys: Aby Stinson MD Discharge: Date of : 52 Report #: [id number] 6. Blood thinner: The patient is on Eliquis. 7. Hypertension: The patient is being treated for hypertension. 8. Opioids: The patient receives medication from the pain clinic. 9. Risk assessment tool: Low for opioid use. 10. Functional assessment tool /. 11. Recreational drug use: The patient denies. 12. Tobacco: The patient currently smokes tobacco. 13. Alcohol: The patient occasionally drinks alcoholic beverages. PHYSICAL EXAMINATION: GENERAL: The patient is a well-developed, well-nourished black male, appears his stated age. He is alert and oriented x 3. He is somewhat obese. HEENT: Normocephalic, atraumatic. Extraocular eye muscles intact. Sclerae nonicteric. Mucous membranes are moist. The patient is wearing glasses. The patient has a facial mask in place. NECK: Does complain of some pain and discomfort in the neck area. Has had history of pain radiating down into his elbow and forearm. The patient complains of some pain and discomfort in the area of his right hip, which has been replaced. MUSCULOSKELETAL: The patient without significant scoliosis, kyphosis or lordosis. Walks with a slow and antalgic gait because of right hip pain. IMPRESSION: 1. Lumbar radiculopathy at the L4-L5 dermatomal distribution. 2. Right hip replacement. 3. Bilateral hip osteoarthritis. 4. History of hepatitis. 5. Hypertension. 6. Chronic obstructive pulmonary disease. 7. Complex medical management using opioids to help control pain. RECOMMENDATIONS: We discussed treatment options with the patient. At this juncture, we will renew his medications. He will continue to monitor his progress. The patient had been diagnosed with a blood clot. We went over the pathophysiology of blood clotting. We also discussed the significant risks that one develops should he not continue with the blood thinning medications. A script for his medications has been provided. The patient will continue with oxycodone 5 mg 1 tablet q. 4-6 hours p.r.n. He will also continue with hydromorphone/Dilaudid 4 mg p.o. b.i.d. as needed. The patient will call us if he has any concerns. [facility] [address] [place] [address] PAIN MANAGEMENT CONSULTATION Name: BRYSON OLIVA JR Room #: REG KAELYN Sharma#: [id number] Admission: 07/30/20 Attend Phys: Aby Stinson MD Discharge: Date of : 52 Report #: [id number] We would like to thank you for letting us participate in his care. We hope he continues to improve. By: [id number] Aby Stinson MD /PMT
[2020-07-30 09:48] VITALS: BP 112/66
--- NOTE | 2020-07-30 10:09 | NUR ---
Pain Clinic Assessment: 1. History of Osteoarthritis: BILAT HIPS History of Rheumatoid Arthritis: NO 2. Height: 5 ft. 4 in. 162.6 cm. Weight: 241.2 lb. oz. 109.408 kg. Patient's BMI: 41.4 3. Vital Signs: BP: 112/66 Pulse: 104 Resp: 22 Temp: 02 Sat: 100 ECG Mon: 4. Pain Intensity: 3 , 7 AT BEDTIME 5. Fall Risk: Dizziness: Y Needs help standing or walking: Y Fallen in the last 3 months: N Fall risk comments: FELL 2 MONTHS AGO DID NOT SEEK MEDICAL 6. Patient on Blood Thinner: XIMENA 7. History of Hypertension: Y 8. Opioid Therapy greater than 6 weeks: Y Opiate Contract Signed: 09/16/17 9. Risk Assessment Tool Provided: LOW-0 10. Functional Assessment Tool: 11. Recreational Drug Use: Never Drug Type: Tobacco Use: Current Every Day Smoker Tobacco Type: Amount or Packs/day: How Many Years: Alcohol Use: Yes Frequency: Quant:
== END ==
LOC: PAIN 06:50
PROVIDERS: ATTEND Anesthesiology Pain Medicine
DX: M16.0 Bilateral primary osteoarthritis of hip (principal); M54.16 Radiculopathy, lumbar region; I10 Essential (primary) hypertension; J44.9 Chronic obstructive pulmonary disease, unspecified; N15.8 Other specified renal tubulo-interstitial diseases; Z79.891 Long term (current) use of opiate analgesic; Z79.899 Other long term (current) drug therapy

== ENCOUNTER 2020-08-11 15:59 | Emergency (ER) | payer OTHER ==
[~2020-08-11] VITALS: Ht 162.6 cm; Wt 108.9 kg
[~2020-08-11 15:59] MED LIST changes: -DOXYCYCLINE 10100 MG PO
[2020-08-11 17:01] LABS: BASOPHILS 0.8 % (0.0-2.0); EOSINOPHILS 2.3 % (0.0-3.0); HEMATOCRIT 39.4 % (42.0-52.0); HEMOGLOBIN 12.8 gm/dL (14.0-18.0); LYMPHOCYTES 13.4 % (24.0-44.0); MCH 30.5 pg (26.0-34.0); MCHC 32.4 g/dL (28.0-37.0); MONOCYTES 9.8 % (1.0-8.0); PLATELET COUNT 194 thou/uL (150-400); POLYS 73.7 % (36.0-66.0); RBC 4.19 mil/uL (4.50-6.00); RDW 14.7 % (10.5-14.5); WBC 5.5 thou/uL (4.0-11.0)
[2020-08-11 17:10] LABS: CALCIUM 9.3 mg/dL (8.5-10.1); CREATININE 0.8 mg/dL (0.7-1.3)
[2020-08-11 17:13] LABS: URINE BILIRUBIN NEGATIVE (Negative); URINE BLOOD NEGATIVE (Negative); URINE CLARITY CLEAR; URINE COLOR YELLOW; URINE GLUCOSE-RANDOM* NEGATIVE (Negative); URINE KETONES TRACE (Negative); URINE LEUKOCYTES-REFLEX NEGATIVE (Negative); URINE NITRITE-REFLEX NEGATIVE (Negative); URINE PROTEIN (DIPSTICK) NEGATIVE (Negative); URINE UROBILINOGEN 0.2 E.U./dl (0.2-1.0)
[2020-08-11 17:17] LABS: ALBUMIN 3.5 g/dL (3.4-5.0); DIRECT BILIRUBIN 0.1 mg/dL (<0.1-0.2); TOTAL BILIRUBIN 0.4 mg/dL (0.2-1.0); TOTAL PROTEIN 7.6 g/dL (6.4-8.2)
[2020-08-11] MEDS ORDERED: DOXYCYCLINE 10100 MG PO (18:46)
[2020-08-11] MEDS ORDERED: PREDNISONE 20 M20 MG PO (18:58)
[2020-08-11 19:05] VITALS: BP 132/75
== END 2020-08-11 19:06 | disposition home or self-care (01) ==
LOC: ER 15:59
PROVIDERS: Nurse Practitioner
DX: J44.1 Chronic obstructive pulmonary disease with (acute) exacerbation (principal); Z20.828 Contact with and (suspected) exposure to other viral communicable diseases; I11.0 Hypertensive heart disease with heart failure; I50.9 Heart failure, unspecified; F17.210 Nicotine dependence, cigarettes, uncomplicated; Z96.641 Presence of right artificial hip joint; Z79.899 Other long term (current) drug therapy; Z88.8 Allergy status to other drugs, medicaments and biological substances

== ENCOUNTER → 2020-08-14 | Outpatient (CLI) | payer OTHER ==
[~2020-08-14] MED LIST changes: +DOXYCYCLINE 10100 MG PO
== END ==
LOC: SJCVCIMAG 10:37 → SJCVC 14:14
PROVIDERS: ATTEND Internal Medicine
DX: I49.3 Ventricular premature depolarization (principal); G47.33 Obstructive sleep apnea (adult) (pediatric); M16.11 Unilateral primary osteoarthritis, right hip; R00.0 Tachycardia, unspecified; I10 Essential (primary) hypertension; J44.1 Chronic obstructive pulmonary disease with (acute) exacerbation; I26.93 Single subsegmental thrombotic pulmonary embolism without acute cor pulmonale; Z99.89 Dependence on other enabling machines and devices; Z87.19 Personal history of other diseases of the digestive system

== ENCOUNTER → 2020-09-17 | Outpatient (CLI) | payer OTHER ==
[~2020-09-17] VITALS: Ht 162.6 cm; Wt 112.8 kg
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
[2020-09-17 09:56] VITALS: BP 142/76
--- NOTE | 2020-09-17 10:23 | NUR ---
Pain Clinic Assessment: 1. History of Osteoarthritis: BILAT HIPS BACK History of Rheumatoid Arthritis: NO 2. Height: 5 ft. 4 in. 162.6 cm. Weight: 248.6 lb. oz. 112.764 kg. Patient's BMI: 42.7 3. Vital Signs: BP: 142/76 Pulse: 108 Resp: 18 Temp: 02 Sat: 98 ECG Mon: 4. Pain Intensity: 6 BACK 5. Fall Risk: Dizziness: Y Needs help standing or walking: Y Fallen in the last 3 months: N Fall risk comments: FELL 2 MONTHS AGO DID NOT SEEK MEDICAL 6. Patient on Blood Thinner: XIMENA 7. History of Hypertension: Y 8. Opioid Therapy greater than 6 weeks: Y Opiate Contract Signed: 09/16/17 9. Risk Assessment Tool Provided: LOW-0 10. Functional Assessment Tool: 11. Recreational Drug Use: Never Drug Type: Tobacco Use: Former Smoker Tobacco Type: Amount or Packs/day: How Many Years: Alcohol Use: Yes Frequency: Quant:
== END ==
LOC: PAIN 06:50
PROVIDERS: ATTEND Anesthesiology Pain Medicine
DX: M54.16 Radiculopathy, lumbar region (principal); M48.061 Spinal stenosis, lumbar region without neurogenic claudication; M16.0 Bilateral primary osteoarthritis of hip; I10 Essential (primary) hypertension; J44.9 Chronic obstructive pulmonary disease, unspecified; Z79.891 Long term (current) use of opiate analgesic

== ENCOUNTER 2020-09-29 16:18 | Inpatient (IN) | payer OTHER ==
[~2020-09-29] VITALS: Ht 162.6 cm; Wt 108.9 kg
[2020-09-29 16:43] VITALS: BP 130/87
[2020-09-29 18:30] LABS: ABSOLUTE NEUTROPHILS 4.3 thou/uL (1.4-8.2); BASOPHILS 0.9 % (0.0-2.0); EOSINOPHILS 0.6 % (0.0-3.0); HEMATOCRIT 42.4 % (42.0-52.0); HEMOGLOBIN 13.7 gm/dL (14.0-18.0); LYMPHOCYTES 14.7 % (24.0-44.0); MCH 30.6 pg (26.0-34.0); MCHC 32.3 g/dL (28.0-37.0); MCV 94.8 fL (80.0-100.0); MONOCYTES 9.8 % (1.0-8.0); PLATELET COUNT 192 thou/uL (150-400); RBC 4.48 mil/uL (4.50-6.00); RDW 15.8 % (10.5-14.5); WBC 5.8 thou/uL (4.0-11.0)
[2020-09-29 18:37] LABS: CALCIUM 8.9 mg/dL (8.5-10.1); CREATININE 1.3 mg/dL (0.7-1.3); POTASSIUM 4.2 mmol/L (3.5-5.1)
[2020-09-30 05:55] LABS: HEMATOCRIT 37.4 % (42.0-52.0); HEMOGLOBIN 11.9 gm/dL (14.0-18.0); MCH 30.5 pg (26.0-34.0); MCHC 31.8 g/dL (28.0-37.0); RBC 3.9 mil/uL (4.50-6.00)
[2020-09-30 06:14] LABS: CALCIUM 8.5 mg/dL (8.5-10.1); CREATININE 1.2 mg/dL (0.7-1.3)
[2020-09-30 06:26] VITALS: BP 117/73
--- NOTE | 2020-09-30 06:31 | NUR ---
ED NURSE CALLED TO GIVE REPORT WAS TOLD TO WAIT FOR DAY SHIFT TO ARRIVE
--- NOTE | 2020-09-30 06:50 | NUR ---
ED NURSE CALLED AGAIN TO GIVE REPORT, WAS TOLD DAY SHIFT IS STILL IN HUDDLE AND THEY WILL CALL ME BACK
--- NOTE | 2020-09-30 07:24 | EKG ---
[facility] [address] [place] [address] ELECTROCARDIOGRAM REPORT Name: BRYSON OLIVA Room #: 455-P ADM IN M.R.#: [id number] Admission: 09/29/20 Attend Phys: Chan Pascual MD Discharge: Date of : 52 Report #: [id number] THIS REPORT FOR: cc: Mitesh Parker James A. DO Santiago, Patrick MD [facility] ~ THIS REPORT FOR: //name// [facility] ED Test Date: 2020-09-29 Test Time: 18:17:06 Pat Name: BRYSON OLIVA Department: Room: [facility] Gender: M Yarrow Gatherer: Elysia : 1950 Requested By: Jorge Price Order Number: [id number] MD: Royal Ahn Measurements Intervals [place] Rate: 91 P: 59 AK: 146 QRS: -15 QRSD: 91 T: 28 QT: 370 QTc: 456 Interpretive Statements Sinus rhythm Compared to ECG 07/08/2020 19:49:37 No significant changes Electronically Signed On 09-30-2020 7:24:27 WELDER SETTER RESISTANCE MACHINE by Royal Ahn [email or web address] <ELECTRONICALLY SIGNED> By: Royal Ahn MD, FACC 09/30/20 0724 1817 181 Royal Ahn MD, [facility] /EPI
[2020-09-30 09:10] LABS: BE(vivo) -0.1 mmol/L (-2 to +3); HCO3 24.6 mmol/L (22.0-26.0); PCO2 40.4 mmHg (35.0-45.0); PO2 71.9 mmHg (80.0-100.0); pH 7.402 (7.360-7.450); sO2 94.5 % (92.0-98.0)
[2020-09-30 09:11] LABS: % SATURATION 68 % (20-39); IRON 208 ug/dL (65-175); TIBC 306 ug/dL (250-450)
[2020-09-30 09:46] VITALS: BP 103/64
--- NOTE | 2020-09-30 14:52 | NUR ---
PT ADMITTED RELATED TO DYSPNEA ON EXERTION, FATIGUE. CM REVIEWED CHART AND SPOKE WITH CARE TEAM. CM CALLED AND SPOKE WITH PT OVER THE PHONE THIS DAY. PT APPEARED TO BE A&O X4. CM ROLE INTRODUCED. PT INDICATED HE LIVES IN A TOWN HOUSE WITH HIS SPOUSE WITH 5 STEPS TO ENTER AND 13 INSIDE. 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 HE STATED HE USED A CANE OR HIS FWW TO ASSIST WITH MOBILITY. PT HAS A CONCENTRATOR THAT HE USES TO BLEED IN 2L THROUGH HIS CPAP NOC. 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 HE INDICATED THAT HE ANTICIPATES RETURNING HOME ONCE MEDICALLY STABLE. CM TO FOLLOW INDICATED WITH DC PLANNING.
--- NOTE | 2020-09-30 16:58 | NUR ---
Admitted from ER due to fatigue, transferred to bed safely. A+Ox4. On telemetry; no complains and signs of chest pain, crushing sensation and heaviness. On room air, pt reports that he's using CPAP at night. On carb controlled diet, tolerating well; no nausea, no vomiting and no abdominal pain noted. Continent of bowel and bladder, able to go to the toilet and using urinal at times. Falls bundle in place. With consult for Pulmo, Cardio and Gastro, called in consult; for OT/PT evaluation. Admission education, assessment and history done; admission forms signed as well. Visiting policy exlained to him and acknowledged, designated vistor assigned. Pt visited by his , update given. To continue monitoring patient.
[2020-09-30 18:29] VITALS: BP 118/74
[2020-09-30 20:02] VITALS: BP 130/87
--- NOTE | 2020-10-01 03:46 | NUR ---
assumed care approx 1929 evening 09/30. pt alert and oriented x4, appropriate and cooperative. pt in process of bowel prep at change of shift. pt stated he was very fatigued however felt like he was making progress with prep. pt given hs meds, no nausea or vomiting. pt stated he was almost clear with stool. pt advised to be NPO after midnight. pt wearing cpap machine off and on tonight. call light in reach. will continue to monitor.
[2020-10-01 06:23] LABS: HEMATOCRIT 38.2 % (42.0-52.0); HEMOGLOBIN 12.2 gm/dL (14.0-18.0); MCH 30.9 pg (26.0-34.0); MCV 96.6 fL (80.0-100.0); RBC 3.95 mil/uL (4.50-6.00); RDW 15.5 % (10.5-14.5); WBC 5.2 thou/uL (4.0-11.0)
[2020-10-01 06:44] LABS: ALBUMIN 3.2 g/dL (3.4-5.0); CALCIUM 8.8 mg/dL (8.5-10.1); CREATININE 0.9 mg/dL (0.7-1.3); POTASSIUM 3.5 mmol/L (3.5-5.1); TOTAL BILIRUBIN 0.9 mg/dL (0.2-1.0); TOTAL PROTEIN 6.7 g/dL (6.4-8.2)
[2020-10-01 10:10] VITALS: BP 140/84
--- NOTE | 2020-10-01 13:59 | NUR ---
CARE TEAM INDICATED THAT PT IS HAVING AN EGD AND COLONOSCOPY THIS DAY. CM TO FOLLOW INDICATED WITH DC PLANNING.
--- NOTE | 2020-10-01 15:25 | NUR ---
ASSUMED PT CARE THIS AM. PT VSS, A&OX4. PT PLEASANT, CALLS WHEN APPROPRAITE. PT UP TO BATHROOM WITH STANDBY ASSIST USING CANE. PT COMPLAINS OF PAIN MANAGED BY MEDS. PT REMAINED NPO PRIOR TO EGD/COLONOSCOPY. IV WAS REMOVED BY PT ACCIDENTALY WHEN WORKING WITH OT, NEW IV STARTED IN THE RIGHT FOREARM. IV PATENT.
[2020-10-01 16:25] VITALS: BP 154/94
[2020-10-01 16:56] VITALS: BP 141/84
[2020-10-01 17:16] VITALS: BP 136/87
[2020-10-01 17:31] VITALS: BP 123/81
[2020-10-01 20:01] VITALS: BP 141/86
--- NOTE | 2020-10-02 06:26 | NUR ---
VSS-AFEBRILE. FRUSTRATED AND STATED NOT READY FOR DC. FEELS THE PHYSICIANS DIDNT DISCUSS ANY TEST RESULTS, AND WANTS TO SPEAK TO DR GALLARDO BEFORE DC. REQUESTING TO SEE DR WHITE, FEELS THAT IT IS POSSIBLE THAT SOME OF HIS FATIGUE RECENTLY IS DUE TO DEPRESSION/ANXIETY. EDUCATED ON PLAN OF CARE, WAS ABLE TO CALM AND REST WELL THE REST OF NIGHT. CALLS APPROPRIATELY FOR ANY NEEDED ASSISTANCE.
[2020-10-02 07:36] VITALS: BP 138/73
[2020-10-02 09:21] VITALS: BP 138/73
[2020-10-02 10:56] VITALS: BP 138/73
[2020-10-02 12:02] VITALS: BP 117/73
--- NOTE | 2020-10-02 12:54 | NUR ---
Hx: pt admitted with dyspnea on exertion and extreme fatigue. PMHx of COPD, HTN, Hepatitis C, Anemia, GUILLERMINA, BLE edema, GERD, and s/p hip replacement. Nutrition: BMI >40, so chart reviewed and visited pt. Found to be low risk. 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 No significant wt losses noted. Pt found to be at low nutrition risk. Possible d/c soon.
--- NOTE | 2020-10-02 13:28 | P ---
[facility] [place] [address] PROCEDURE REPORT Name: BRYSON OLIVA Room #: 455-P ADM IN M.R.#: [id number] Admission: 09/29/20 Attend Phys: Chan Pascual MD Discharge: Date of : 52 Report #: [id number] THIS REPORT FOR: cc: Mitesh Parker James A. DO McElhinney, Christian C. MD ~ CC: Anirudh Cardona MD [facility] Mitesh Swan MD DATE OF SERVICE: 10/01/2020 PROCEDURE PERFORMED: Colonoscopy with polypectomies. HISTORY OF PRESENT ILLNESS: The patient is a 70-year-old male with recent dark stools, but also bright red blood per rectum and maroon type stools. No family history of colon cancer. PLAN: The patient was on Eliquis, has been held now for the last 2 days. Plan is for colonoscopy. DESCRIPTION OF PROCEDURE: The risks and benefits of the procedure were explained to the patient, those risks including but not limited to bleeding, perforation and the risk of sedation. He understood these risks and gave informed consent. Sedation was given using propofol per anesthesia. Next, a digital rectal exam was initially performed, which was normal. Next, using a standard Olympus colonoscope, the scope was placed in the patient's anus and advanced under direct vision to the cecum. The overall prep was good. In the cecum, there was a 3 mm sessile polyp. This was removed with cold forceps, otherwise normal. The ileocecal valve was normal. The ascending colon was normal. In the transverse colon, there was a 4 mm sessile polyp also removed with cold forceps. Descending colon was normal. Multiple diverticula noted in the sigmoid colon, no evidence of bleeding. Also, in the sigmoid colon was a 6 mm partially pedunculated polyp. This was removed by snare cautery. The rectal mucosa was normal. On retroflexion, small nonbleeding internal hemorrhoids were noted. The scope was then withdrawn and the procedure terminated. The patient tolerated the procedure well. IMPRESSION: 1. Small colonic polyps. 2. Sigmoid diverticulosis, no stigmata of recent bleeding, but possible source. 3. Internal hemorrhoids, nonbleeding. RECOMMENDATIONS: [address] [address] PROCEDURE REPORT Name: BRYSON OLIVA JR Room #: 455-P [facility] IN [facility].#: [id number] Admission: 09/29/20 Attend Phys: Chan Pascual MD Discharge: Date of : 52 Report #: [id number] 1. Await biopsy results. 2. Observe the patient post-procedure. No evidence of bleeding on exam on EGD or colonoscopy today. The patient could have had a diverticular bleed recently or bleeding from hemorrhoids, would observe at this point. Thank you for allowing me to participate in his care. <ELECTRONICALLY SIGNED> By: Gelacio Ochoa MD 10/02/20 1328 [id number] [id number] Gelacio Ochoa MD /nt
--- NOTE | 2020-10-02 13:28 | P ---
[facility] [place] [address] [place] [address] PROCEDURE REPORT Name: GISSELL OLIVARUKHSANA Peter Room #: 455-P ADM IN M.R.#: [id number] Admission: 09/29/20 Attend Phys: Chan Pascual MD Discharge: Date of : 52 Report #: [id number] THIS REPORT FOR: cc: Mitesh Parker James A. DO McElhinney, Christian C. MD ~ CC: Anirudh Cardona MD [facility] Mitesh Swan MD DATE OF SERVICE: 10/01/2020 PROCEDURE PERFORMED: Upper endoscopy. HISTORY OF PRESENT ILLNESS: The patient is a 70-year-old male who presented with generalized fatigue, noted to have both black stools as well as bright red blood per rectum. He had been taking Eliquis for history of PE. Hemoglobin on admission was 13.7 and this dropped to 11.9. He denies any abdominal pain. Denies any NSAID use. Plan is for EGD and colonoscopy. Stool was Hemoccult negative x1 two days ago. DESCRIPTION OF PROCEDURE: The risks and benefits of the procedure were explained to the patient, those risks including but not limited to bleeding, perforation and the risk of sedation. He understood these risks and gave informed consent. Sedation was given using propofol per anesthesia. Next, using a standard Olympus upper endoscope, the scope was placed in the patient's mouth and advanced under direct vision through the esophagus, stomach and into the second portion of the duodenum. The esophagus was normal throughout. The GE junction was normal. Overall, the gastric mucosa was normal. The pylorus was normal and patent. The duodenal bulb, first and second portion were all normal. The scope was then withdrawn and the procedure terminated. The patient tolerated the procedure well. IMPRESSION: Normal upper endoscopy. RECOMMENDATIONS: We will proceed with colonoscopy next today. Thank you for allowing me to participate in his care. <ELECTRONICALLY SIGNED> By: Gelacio Ochoa MD 10/02/20 1328 [id number] Gelacio Ochoa MD /nt
[2020-10-02 14:05] VITALS: BP 138/73
--- NOTE | 2020-10-02 15:04 | NUR ---
CARE TEAM INDICATED THAT PT HAD ORDERS TO DC HOME YESTERDAY, IT APPEARS BASED ON NURSES NOTES THAT PT REFUSED HE WANTED TO SPEAK WITH PHYSICIANS PRIOR TO DC. CM CALLED AND SPOKE WITH PT THIS AM. HE WAS UNDERSTANDING OF DC AND RESUMPTION OF [facility] HH SERVICES. HE INDICATED THAT HIS WOULD PROVIDE DC TRANASPORT HOME THIS DAY. ORDERS FAXED TO [facility]. CM CALLED AND CONFIRMED RECIEPT. PT TO HAVE RESUMPTION OF HH SERVICES SOC TOMORROW. NO OTHER CM INTERVENTION INDICATED CASE CLOSED.
--- NOTE | 2020-10-02 16:50 | NUR ---
ASSUMED CARE OF PATIENT AT 0700. ASSESSMENT CHARTED. MEDS GIVEN PER MAR. VSS. PATIENT C/O PAIN ON LOWER BACK. PAIN MEDS WERE GIVEN PRIOR TO PT/OT AND PATIENT STATED "THEY AIN'T DOING NOTHING". PATIENT LATER EXPRESSED RELIEF WITH LYRICA. PATIENT HAD QUESTIONS ON MEDICATIONS AND WAS GIVEN EDUCATION PRIOR TO DISCHARGE. WAS SENT OUT WITH REFERRALS. DENIED DISTRESS OR NEEDS UPON DISCHARGE. LEFT UNIT W NURSING STAFF, SPOUSE IN CAR.
[2020-10-02 17:04] VITALS: BP 138/73
--- NOTE | 2020-10-02 17:13 | NUR ---
I AGREE WITH NURSING ASSESSMENT AND NURSING NOTE NOTE DONE BY GAYLA/CHRISTIAN SCIENCE READER.
--- NOTE | 2020-10-03 16:06 | PATH ---
[facility] [address] [address] PATHOLOGY RPT PROCEDURE Name: GISSELL OLIVARUKHSANA Peter Room #: 455-P [facility] IN M.R.#: [id number] Admission: 09/29/20 Date of : 52 Discharge: 10/02/20 Report #: [id number] Path Case #: [id number] [facility] Accession Number: [id number] . 01 Material submitted: . PART A: cecum - CECAL POLYP PART B: colon - POLYP AT TRANSVERSE COLON. Modifiers: transverse PART C: colon - POLYP AT SIGMOID COLON. Modifiers: sigmoid . 01 Clinician provided ICD-10: R06.09 . 01 Clinical history: . RECTAL BLEEDING, DYSPNEA ON EXERTION, FATIGUE . 02 Diagnosis: A. Polyp, cecal polyp, endoscopic biopsy: - Tubular adenoma. - Negative for high-grade dysplasia. . B. Polyp, at transverse colon, endoscopic biopsy: - Tubular adenoma. - Negative for high-grade dysplasia. . C. Polyp, at sigmoid colon, endoscopic biopsy: - Tubular adenoma. - Negative for high-grade dysplasia. - Additional fragments (block C2) showing hyperplastic polyp without any dysplasia. (IUV:pit 10/03/2020) QTP 10/03/2020 1350 Local . 02 Electronically signed: . Caitlin Gracia MD, Pathologist NPI- [id number] . 01 Gross description: . A. Received in formalin labeled "Herbert Oliva Jr., cecal polyp" is a fragment of brown-brown soft tissue measuring 0.6 x 0.3 x 0.1 cm. The specimen is submitted entirely in A1. . B. Received in formalin labeled "Herbert Oliva Jr., polyp at transverse colon" is a fragment of brown-brown soft tissue measuring 0.5 x 0.3 x 0.1 cm. The specimen is submitted entirely in B1. . C. Received in formalin labeled "Herbert Oliva Jr., polyp at sigmoid colon" is a brown-brown nodular mucosal polyp measuring 1.0 x 1.0 x 0[place]5 [place] [address] PATHOLOGY RPT PROCEDURE Name: HERBERT OLIVA JR Room #: 455-P [facility] IN M.R.#: [id number] Admission: 09/29/20 Date of : 52 Discharge: 10/02/20 Report #: [id number] Path Case #: [id number] The margin is inked and the polyp is sectioned and submitted entirely in C1. Also present within the container are two separate fragments of brown-brown soft tissue measuring in aggregate 0.5 x 0.3 x 0.1 cm, which are submitted in C2. ([facility]; 10/02/2020) [facility] 10/02/2020 1513 Local . 02 Pathologist provided ICD-10: D12.0, D12.3, D12.5 . 02 CPT . 597803, 504668, 660404 Specimen Comment: A courtesy copy of this report has been sent to [phone], [phone] Specimen Comment: [phone], Specimen Comment: Report sent to ,DR GALLARDO / DR WALKER Performed at: [address], [place] [id number] MD Sarabjit Sim MD Phone: [phone] Performed at: [address] [id number] MD Caitlin Gracia MD Phone: [phone]
== END 2020-10-02 15:48 | disposition home health service (06) | DRG 377 ==
LOC: ER 16:18 → 4W 22:47 → EROBS 22:47 → 4W 09-30 07:10
PROVIDERS: Emergency Medicine; Internal Medicine; Nurse Practitioner; Nurse Practitioner Family; ADMIT Internal Medicine; ATTEND Internal Medicine
PROC: 0DJ08ZZ Inspection of Upper Intestinal Tract, Via Natural or Artificial Opening Endoscopic (ICD-10-PCS; principal; 2020-10-01)
PROC: 5A09357 Assistance with Respiratory Ventilation, Less than 24 Consecutive Hours, Continuous Positive Airway Pressure (ICD-10-PCS; principal; 2020-10-01)
PROC: 0DBH8ZZ Excision of Cecum, Via Natural or Artificial Opening Endoscopic (ICD-10-PCS; principal; 2020-10-01)
PROC: 0DBN8ZZ Excision of Sigmoid Colon, Via Natural or Artificial Opening Endoscopic (ICD-10-PCS; principal; 2020-10-01)
PROC: 0DBL8ZZ Excision of Transverse Colon, Via Natural or Artificial Opening Endoscopic (ICD-10-PCS; principal; 2020-10-01)
DX: K57.31 Diverticulosis of large intestine without perforation or abscess with bleeding (principal); J96.20 Acute and chronic respiratory failure, unspecified whether with hypoxia or hypercapnia; Z68.41 Body mass index [BMI] 40.0-44.9, adult; J44.9 Chronic obstructive pulmonary disease, unspecified; Z20.828 Contact with and (suspected) exposure to other viral communicable diseases; I10 Essential (primary) hypertension; K63.5 Polyp of colon; K64.8 Other hemorrhoids; G47.33 Obstructive sleep apnea (adult) (pediatric); D64.9 Anemia, unspecified; G47.00 Insomnia, unspecified; B19.20 Unspecified viral hepatitis C without hepatic coma; K59.00 Constipation, unspecified; M54.16 Radiculopathy, lumbar region; M54.12 Radiculopathy, cervical region; M19.90 Unspecified osteoarthritis, unspecified site; F41.9 Anxiety disorder, unspecified; E66.01 Morbid (severe) obesity due to excess calories; G89.4 Chronic pain syndrome; Z86.711 Personal history of pulmonary embolism; Z87.891 Personal history of nicotine dependence; Z71.6 Tobacco abuse counseling; Z83.6 Family history of other diseases of the respiratory system; Z80.0 Family history of malignant neoplasm of digestive organs; Z79.891 Long term (current) use of opiate analgesic
CPT/HCPCS: 10045; 62110; 62900; 70005

== ENCOUNTER → 2020-10-29 | Outpatient (CLI) | payer OTHER ==
[~2020-10-29] VITALS: Ht 162.6 cm; Wt 112.5 kg
[~2020-10-29] MED LIST changes: +ALPRAZOLAM1 MG PO; +PROTONIX40 M4 PO
[2020-10-29 13:34] VITALS: BP 166/95
--- NOTE | 2020-10-29 13:50 | NUR ---
Pain Clinic Assessment: 1. History of Osteoarthritis: BILAT HIPS BACK History of Rheumatoid Arthritis: NO 2. Height: 5 ft. 4 in. 162.6 cm. Weight: 248.0 lb. oz. 112.492 kg. Patient's BMI: 42.5 3. Vital Signs: BP: 166/95 Pulse: 113 Resp: 20 Temp: 02 Sat: 100 ECG Mon: 4. Pain Intensity: 3 5. Fall Risk: Dizziness: N Needs help standing or walking: N Fallen in the last 3 months: N Fall risk comments: FELL 2 MONTHS AGO DID NOT SEEK MEDICAL 6. Patient on Blood Thinner: ELIQUIS 7. History of Hypertension: Y 8. Opioid Therapy greater than 6 weeks: Y Opiate Contract Signed: 09/16/17 9. Risk Assessment Tool Provided: LOW-0 10. Functional Assessment Tool: 11. Recreational Drug Use: Never Drug Type: Tobacco Use: Current Some Day Smoker Tobacco Type: Amount or Packs/day: 2/ DAY How Many Years: 57 Alcohol Use: Yes Frequency: Daily Quant: 1-2 GLASSES OF WINE
== END ==
LOC: PAIN 06:53
PROVIDERS: ATTEND Anesthesiology Pain Medicine
DX: M54.5 Low back pain (principal); M25.552 Pain in left hip; M25.561 Pain in right knee; G89.29 Other chronic pain; J44.9 Chronic obstructive pulmonary disease, unspecified; I10 Essential (primary) hypertension; F17.210 Nicotine dependence, cigarettes, uncomplicated; Z72.89 Other problems related to lifestyle

== ENCOUNTER → 2020-11-05 | Outpatient (CLI) | payer OTHER ==
[~2020-11-05] MED LIST changes: -ALPRAZOLAM1 MG PO; -PROTONIX40 M4 PO
== END ==
LOC: SJCVC 13:27
PROVIDERS: ATTEND Internal Medicine
DX: R00.0 Tachycardia, unspecified (principal); I10 Essential (primary) hypertension; E78.5 Hyperlipidemia, unspecified; J44.1 Chronic obstructive pulmonary disease with (acute) exacerbation; G47.33 Obstructive sleep apnea (adult) (pediatric); J45.909 Unspecified asthma, uncomplicated; E66.9 Obesity, unspecified; F41.9 Anxiety disorder, unspecified; F17.210 Nicotine dependence, cigarettes, uncomplicated; Z72.89 Other problems related to lifestyle; Z86.711 Personal history of pulmonary embolism; Z99.89 Dependence on other enabling machines and devices; Z79.899 Other long term (current) drug therapy

== ENCOUNTER → 2020-11-11 | Outpatient (CLI) | payer OTHER ==
[~2020-11-11] MED LIST changes: +ALPRAZOLAM1 MG PO; +PROTONIX40 M4 PO
== END ==
LOC: LAB 09:17
PROVIDERS: ATTEND Student in an Organized Health Care Education/Training Program
DX: Z01.812 Encounter for preprocedural laboratory examination (principal); Z20.828 Contact with and (suspected) exposure to other viral communicable diseases

== ENCOUNTER → 2020-11-24 | Outpatient (CLI) | payer OTHER | LOC: LAB 07:59 | PROVIDERS: ATTEND Student in an Organized Health Care Education/Training Program | DX: Z01.812 Encounter for preprocedural laboratory examination (principal); Z20.828 Contact with and (suspected) exposure to other viral communicable diseases ==

== ENCOUNTER 2020-11-27 10:01 | Outpatient (CLI) | payer OTHER ==
[~2020-11-27] VITALS: Ht 162.6 cm; Wt 108.9 kg
[2020-11-27 11:06] LABS: CALCIUM 9.3 mg/dL (8.5-10.1); CREATININE 1.1 mg/dL (0.7-1.3); POTASSIUM 3.9 mmol/L (3.5-5.1)
[2020-11-27 12:12] VITALS: BP 134/94
[2020-12-04] MEDS ORDERED: DILAUDID4 MG PO (12:21)
[2020-12-04] MEDS ORDERED: TIZANIDINE HCL 22 M1 PO (12:21)
[2020-12-04] MEDS ORDERED: PREGABALIN50 MG PO (12:21)
== END 2020-11-27 13:50 | disposition home or self-care (01) ==
LOC: MRI 10:01 → TBA 10:10 → MRI 11:11
PROVIDERS: Anesthesiology
DX: M47.817 Spondylosis without myelopathy or radiculopathy, lumbosacral region (principal); M48.07 Spinal stenosis, lumbosacral region
CPT/HCPCS: 62110; 62900; 70005

== ENCOUNTER → 2020-12-03 | Outpatient (CLI) | payer OTHER ==
[2020-12-03 12:49] VITALS: BP 130/76
--- NOTE | 2020-12-03 13:02 | NUR ---
Pain Clinic Assessment: 1. History of Osteoarthritis: BILAT HIPS BACK History of Rheumatoid Arthritis: NO 2. Height: 5 ft. 4 in. 162.6 cm. Weight: lb. oz. kg. Patient's BMI: 3. Vital Signs: BP: 130/76 Pulse: 105 Resp: 22 Temp: 02 Sat: 97 ECG Mon: 4. Pain Intensity: 5 5. Fall Risk: Dizziness: Y Needs help standing or walking: Y Fallen in the last 3 months: N Fall risk comments: FELL 2 MONTHS AGO DID NOT SEEK MEDICAL 6. Patient on Blood Thinner: ELIQUIS 7. History of Hypertension: Y 8. Opioid Therapy greater than 6 weeks: Y Opiate Contract Signed: 09/16/17 9. Risk Assessment Tool Provided: LOW-0 10. Functional Assessment Tool: 11. Recreational Drug Use: Never Drug Type: Tobacco Use: Current Some Day Smoker Tobacco Type: Amount or Packs/day: How Many Years: Alcohol Use: Yes Frequency: Quant:
== END | disposition home or self-care (01) ==
LOC: PAIN 11-19 06:44
PROVIDERS: ATTEND Anesthesiology Pain Medicine
DX: M54.16 Radiculopathy, lumbar region (principal); G89.29 Other chronic pain; I10 Essential (primary) hypertension; J44.9 Chronic obstructive pulmonary disease, unspecified; G47.33 Obstructive sleep apnea (adult) (pediatric); D64.9 Anemia, unspecified; F17.210 Nicotine dependence, cigarettes, uncomplicated; Z98.890 Other specified postprocedural states; Z90.49 Acquired absence of other specified parts of digestive tract; Z79.899 Other long term (current) drug therapy; Z79.01 Long term (current) use of anticoagulants; Z79.891 Long term (current) use of opiate analgesic; Z96.641 Presence of right artificial hip joint; Z86.711 Personal history of pulmonary embolism

== ENCOUNTER → 2020-12-15 | Outpatient (CLI) | payer OTHER | LOC: LAB 10:03 | PROVIDERS: ATTEND Internal Medicine Pulmonary Disease | DX: R06.02 Shortness of breath (principal); R05 Cough; R06.2 Wheezing; Z20.822 Contact with and (suspected) exposure to COVID-19 ==

== ENCOUNTER → 2021-01-21 | Outpatient (CLI) | payer OTHER ==
[~2021-01-21] VITALS: Ht 162.6 cm; Wt 115.1 kg
[~2021-01-21] MED LIST changes: +FLEXERIL PO; +POTASSIUM20 PO
[2021-01-21 11:05] VITALS: BP 151/80
--- NOTE | 2021-01-21 11:17 | NUR ---
Pain Clinic Assessment: 1. History of Osteoarthritis: BILAT HIPS BACK History of Rheumatoid Arthritis: NO 2. Height: 5 ft. 4 in. 162.6 cm. Weight: 253.8 lb. oz. 115.123 kg. Patient's BMI: 43.5 3. Vital Signs: BP: 151/80 Pulse: 120 Resp: 24 Temp: 02 Sat: 94 ECG Mon: 4. Pain Intensity: 4 AT REST; 7 WHEN ACTIVE 5. Fall Risk: Dizziness: N Needs help standing or walking: Y Fallen in the last 3 months: N Fall risk comments: FELL 2 MONTHS AGO DID NOT SEEK MEDICAL 6. Patient on Blood Thinner: None 7. History of Hypertension: Y 8. Opioid Therapy greater than 6 weeks: Y Opiate Contract Signed: 09/16/17 9. Risk Assessment Tool Provided: LOW-0 10. Functional Assessment Tool: 11. Recreational Drug Use: Never Drug Type: Tobacco Use: Current Some Day Smoker Tobacco Type: Cigarettes Amount or Packs/day: 7/DAY How Many Years: Alcohol Use: Yes Frequency: Daily Quant: WINE DAILY
== END | disposition home or self-care (01) ==
LOC: PAIN 06:43
PROVIDERS: ATTEND Anesthesiology Pain Medicine
DX: M25.561 Pain in right knee (principal); G89.29 Other chronic pain; M54.16 Radiculopathy, lumbar region; M54.12 Radiculopathy, cervical region; I10 Essential (primary) hypertension; J44.9 Chronic obstructive pulmonary disease, unspecified; D64.9 Anemia, unspecified; G47.33 Obstructive sleep apnea (adult) (pediatric); K21.9 Gastro-esophageal reflux disease without esophagitis; F17.210 Nicotine dependence, cigarettes, uncomplicated; Z98.890 Other specified postprocedural states; Z79.899 Other long term (current) drug therapy; Z86.19 Personal history of other infectious and parasitic diseases; Z90.49 Acquired absence of other specified parts of digestive tract; Z96.641 Presence of right artificial hip joint

== ENCOUNTER → 2021-02-18 | Outpatient (CLI) | payer OTHER ==
[~2021-02-18] VITALS: Ht 162.6 cm; Wt 115.3 kg
[~2021-02-18] MED LIST changes: +PREGABALIN100 MG PO
[2021-02-18 13:23] VITALS: BP 145/84
--- NOTE | 2021-02-18 13:55 | NUR ---
Pain Clinic Assessment: 1. History of Osteoarthritis: BILAT HIPS BACK History of Rheumatoid Arthritis: NO 2. Height: 5 ft. 4 in. 162.6 cm. Weight: 254.2 lb. oz. 115.305 kg. Patient's BMI: 43.6 3. Vital Signs: BP: 145/84 Pulse: 114 Resp: 22 Temp: 02 Sat: 96 ECG Mon: 4. Pain Intensity: 4 AT REST; 7 WHEN ACTIVE 5. Fall Risk: Dizziness: N Needs help standing or walking: Y Fallen in the last 3 months: Y Fall risk comments: FELL 2 MONTHS AGO DID NOT SEEK MEDICAL 6. Patient on Blood Thinner: None 7. History of Hypertension: Y 8. Opioid Therapy greater than 6 weeks: Y Opiate Contract Signed: 09/16/17 9. Risk Assessment Tool Provided: LOW-0 10. Functional Assessment Tool: 11. Recreational Drug Use: Never Drug Type: Tobacco Use: Current Some Day Smoker Tobacco Type: Cigarettes Amount or Packs/day: 7 - 10/DAY How Many Years: Alcohol Use: Yes Frequency: Daily Quant: 1
== END ==
LOC: PAIN 06:58
PROVIDERS: ATTEND Anesthesiology Pain Medicine
DX: M79.604 Pain in right leg (principal); M54.16 Radiculopathy, lumbar region; I10 Essential (primary) hypertension; J44.9 Chronic obstructive pulmonary disease, unspecified; F11.20 Opioid dependence, uncomplicated; Z86.19 Personal history of other infectious and parasitic diseases; F17.200 Nicotine dependence, unspecified, uncomplicated; M54.12 Radiculopathy, cervical region; Z96.641 Presence of right artificial hip joint

== ENCOUNTER → 2021-02-25 | Outpatient (CLI) | payer OTHER ==
[~2021-02-25] MED LIST changes: +NEURONTIN100 MG PO
== END ==
LOC: RAD 14:42
PROVIDERS: ATTEND Internal Medicine Pulmonary Disease
DX: J44.9 Chronic obstructive pulmonary disease, unspecified (principal)

== ENCOUNTER 2021-02-27 21:41 | Inpatient (IN) | payer OTHER ==
[~2021-02-27] VITALS: Ht 162.6 cm; Wt 115.2 kg
[~2021-02-27 21:41] MED LIST changes: -NEURONTIN100 MG PO
[2021-02-27 22:24] LABS: ABSOLUTE NEUTROPHILS 4.5 thou/uL (1.4-8.2); BASOPHILS 0.6 % (0.0-2.0); CALCIUM 8.9 mg/dL (8.5-10.1); EOSINOPHILS 1.7 % (0.0-3.0); HEMATOCRIT 43.7 % (42.0-52.0); HEMOGLOBIN 14.2 gm/dL (14.0-18.0); LYMPHOCYTES 14.9 % (24.0-44.0); MCH 32.8 pg (26.0-34.0); MCHC 32.5 g/dL (28.0-37.0); MCV 100.8 fL (80.0-100.0); MONOCYTES 11.7 % (1.0-8.0); PLATELET COUNT 191 thou/uL (150-400); POLYS 71.1 % (36.0-66.0); POTASSIUM 4.3 mmol/L (3.5-5.1); RBC 4.34 mil/uL (4.50-6.00); WBC 6.3 thou/uL (4.0-11.0)
[2021-02-27 22:34] LABS: ALBUMIN 3.4 g/dL (3.4-5.0); TOTAL BILIRUBIN 0.5 mg/dL (0.2-1.0); TOTAL PROTEIN 7.5 g/dL (6.4-8.2); TROPONIN-I 0.06 ng/mL (<0.06)
[2021-02-27 22:42] LABS: APTT 25.6 Seconds (24.5-32.8); D-DIMER 0.88 ug/mLFEU (0.19-0.50); INR 0.98; PROTIME 10.7 Seconds (9.3-11.4)
[2021-02-27] MEDS ORDERED: NEURONTIN100 MG PO (22:54)
[2021-02-28 02:25] VITALS: BP 109/67
[2021-02-28 03:03] VITALS: BP 118/61
[2021-02-28] MEDS ORDERED: LEXAPRO 10 MG T10 M1 PO (03:22)
[2021-02-28] MEDS ORDERED: SEROQUEL 25 MG25 MG PO (03:22)
--- NOTE | 2021-02-28 04:00 | NUR ---
Pt. admitted to the unit from the emergency room accompanied by staff. He is alert and oriented. Admission assessment and history is completed. RT is in the room giving patient a breathing treatment which is helpful for his copd. Pt. c/o chronic back pain and awaiting med orders.
[2021-02-28 07:28] LABS: CALCIUM 8.9 mg/dL (8.5-10.1); POTASSIUM 4.5 mmol/L (3.5-5.1); TROPONIN-I 0.06 ng/mL (<0.06)
[2021-02-28 08:39] VITALS: BP 101/58
--- NOTE | 2021-02-28 11:00 | NUR ---
Received awake on bed. Due medications given as prescribed, able to swallow meds w/o difficulty. On room air during daytime and CPAP at HS. On telemetry; no complains and signs of chest pain, crushing sensation and heaviness. Assisted in ADLs. On heart healthy diet- tolerating well; no nausea, no vomiting and no abdominal pain noted. Continent of bowel and bladder, able to use urinal- output measured and recorded accordingly. Vital signs stable. With SL at L AC. No complains and signs of pain noted during assessment. To continue monitoring patient.
[2021-02-28 16:30] VITALS: BP 152/92
[2021-02-28 19:39] VITALS: BP 150/93
[2021-03-01 05:07] LABS: CALCIUM 8.9 mg/dL (8.5-10.1); CREATININE 0.9 mg/dL (0.7-1.3); POTASSIUM 3.8 mmol/L (3.5-5.1)
--- NOTE | 2021-03-01 05:46 | NUR ---
Assumed pt care at 1900. A/OX4, VSS.LSCTA,has a congested cough. C/o a headache,medicated with Tylenol per EMAR with some relief reported. Up w/SBA,cane. Voiding per urinal at NOC. Blood cx results back Gram cocci positive,Real Estate Financial Analyst Yesenia notified,no new orders continue Abts as ordered for now. Resting w/o any distress,CPAP in place connected to oxygen. Fall precautions in place,will continue to monitor pt. Telemetry dc'd per orders.
[2021-03-01 07:52] VITALS: BP 138/78
[2021-03-01 17:42] VITALS: BP 132/64
[2021-03-01 19:29] VITALS: BP 135/50
--- NOTE | 2021-03-01 20:10 | NUR ---
Assumed pt care this am, VS stable on 5 lites of O2 via nc and cipap. Preferrred to use the ciapa during the day, which gave him a head ache, relief was noted with meducation and removal of cipap. Uses the cane and ia able to use the toilet. POC followed, with no signs of distress. Uses the cane and a gait belt. Endorsed to the night nurse.
--- NOTE | 2021-03-02 04:13 | NUR ---
ASSESSMENT COMPLETED. PT GETS UP WITH SBA TO THE BATHROOM. PT C/O HEADACHE, ONE TIME DOSE OF TORADOL GIVEN WITH RELIEF.PT STABLE ON /.NO COUGH.CONTINUES ON IV ABTS.
[2021-03-02 06:11] LABS: HEMATOCRIT 38.5 % (42.0-52.0); HEMOGLOBIN 12.4 gm/dL (14.0-18.0); MCH 32.2 pg (26.0-34.0); MCHC 32.2 g/dL (28.0-37.0); RBC 3.85 mil/uL (4.50-6.00); RDW 14.4 % (10.5-14.5); WBC 9.9 thou/uL (4.0-11.0)
[2021-03-02 06:46] LABS: CALCIUM 8.5 mg/dL (8.5-10.1); CREATININE 1.1 mg/dL (0.7-1.3); POTASSIUM 3.9 mmol/L (3.5-5.1)
--- NOTE | 2021-03-02 07:09 | EKG ---
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1950 Requested By: Parish Cates Order Number: [id number] MD: Royal Ahn Measurements Intervals [place] Rate: 113 P: 43 TX: 139 QRS: -45 QRSD: 94 T: 34 QT: 319 QTc: 438 Interpretive Statements Sinus tachycardia Low voltage, precordial leads Baseline wander in lead(s) V2 Compared to ECG 09/29/2020 18:17:06 Low QRS voltage now present Sinus rhythm no longer present Electronically Signed On 03-02-2021 7:09:09 CDT by Royal Ahn [email or web address] <ELECTRONICALLY SIGNED> By: Royal Ahn MD, [facility] 03/02/21 0709 [id number] [id number] Royal Ahn MD, [facility] /EPI
[2021-03-02 07:30] VITALS: BP 141/66
--- NOTE | 2021-03-02 11:27 | NUR ---
PT ADMITTED RELATED TO COPD EXACERBATION. CM REVIEWED CHART AND SPOKE WITH CARE TEAM. CM MET WITH PT AT BEDSIDE THIS DAY. PT APPEARED TO BE A&O X4. CM ROLE INTRODUCED. PT INDICATED THE LIVES IN A TOWNHOUSE WITH HIS SPOUSE WITH 5 STEPS TO ENTER AND 13 INSIDE. PT INDICATED HE HAS A CAN, FWW, CPAP, AND O2 FOR HOME USE. PT INDICATED HE HAD BEEN ON SERVICE WITH [facility] IN THE PAST. PT INDICATED HE PLANS TO RETURN HOME ONCE MEDICALLY STABLE. CM FOLLOWING REGARDING DC PLANNING. CARE TEAM INDICATED POSSISBLE DC TOMORROW OR TUESDAY.
[2021-03-02 15:52] VITALS: BP 129/78
[2021-03-02] MEDS ORDERED: NYSTATIN100000 UNI PO (17:24)
--- NOTE | 2021-03-02 19:58 | NUR ---
Assumed pt care this am, able to ambulate with his cane and O2 on 2liters.VS stable. Pain is managed with medications, partial relief noted. at the bedside in the pm. POC followed with no signs or verbalizations of distress noted. Endorsed to the night nurse.
[2021-03-02 20:29] VITALS: BP 153/75
--- NOTE | 2021-03-03 03:36 | NUR ---
PT IS A/O X4 AND IS ON 2 LITERS NC. SOB WITH EXERTION. CPAP AT NOC. USES URINAL AT THE BEDSIDE. UP SBA TO THE BR. NO BM THIS SHIFT. MEDICATIONS GIVEN PER MAR. FALL PREACAUTIONS IN PLACE, CALL LIGHT IS WITHIN REACH.
[2021-03-03 06:06] LABS: HEMATOCRIT 38.9 % (42.0-52.0); HEMOGLOBIN 12.6 gm/dL (14.0-18.0); MCH 32.6 pg (26.0-34.0); MCHC 32.5 g/dL (28.0-37.0); MCV 100.3 fL (80.0-100.0); RBC 3.88 mil/uL (4.50-6.00); RDW 14.4 % (10.5-14.5); WBC 9.2 thou/uL (4.0-11.0)
[2021-03-03 06:25] LABS: CALCIUM 8.8 mg/dL (8.5-10.1)
[2021-03-03 07:30] VITALS: BP 151/67
[2021-03-03 15:14] VITALS: BP 155/85
[2021-03-03 19:36] VITALS: BP 120/61; BP 130/87
--- NOTE | 2021-03-03 19:56 | NUR ---
PT COMPLAINING OF HAVING 2-[address] LEDESMA NOTIFIED AND PT WAS PUT ON CDIFF PRECAUTIONS. WAITING ON STOOL SPECIMEN. PT WEANED BACK TO 2L NC AND A DOSE OF LASIX WAS GIVEN. CONTINUE TO MONITOR.
--- NOTE | 2021-03-04 02:38 | NUR ---
PT CARE ASSUMED AT 1900 WITH PT SITTING AT THE BEDSIDE WATCHING TV.PT IS A/O X4.PT IS UP WITH STANDBY ASSISTANCE TO THE BATHROOM AND USES A CANE.PT IS ON 2L OF O2 VIA NC AND ON CPAP AT NIGHT.PT C/O MUSCLE SPASM AND MEDICATION ADMINISTERED PRESCRIBED.VANCOMYCIN D/C AND PT PLACED ON CEFTIAXONE.PT IS ON CONTACT PRECAUTION FOR CDIFF DUE TO LOSS STOOL AND STILL WAITING RESULTS.WILL CONTINUE TO MONITOR PER POC
[2021-03-04 07:08] VITALS: BP 162/70
[2021-03-04 09:41] LABS: HEMATOCRIT 41.3 % (42.0-52.0); HEMOGLOBIN 13.2 gm/dL (14.0-18.0); MCH 31.5 pg (26.0-34.0); MCHC 31.9 g/dL (28.0-37.0); MCV 98.7 fL (80.0-100.0); RBC 4.18 mil/uL (4.50-6.00); WBC 7.2 thou/uL (4.0-11.0)
[2021-03-04 10:03] LABS: CALCIUM 8.7 mg/dL (8.5-10.1); POTASSIUM 3.6 mmol/L (3.5-5.1)
[2021-03-04] MEDS ORDERED: CEFDINIR300 MG PO (11:22)
[2021-03-04] MEDS ORDERED: PREDNISONE 10 M10 M1 PO (11:25)
[2021-03-04 12:06] VITALS: BP 162/70
[2021-03-04 13:44] VITALS: BP 162/70
--- NOTE | 2021-03-04 13:56 | NUR ---
CARE TEAM INDICATED THAT PT IS MEDICALLY STABLE TO DISCHARGE HOME THIS DAY. RT DID EXERCISE OX TEST AND PT DIDN'T QUALIFY FOR HOME O2. PT HAS CPAP WIHT 2L BLEED THROUGH AT HOME ALREADY. CM MET WITH PT AT BEDSIDE THIS DAY. PT IS AWARE AND AGREEABLE TO DC HOME THIS DAY AND WANTED TO USE [facility] AGAIN REFERRAL AND ORDERS FAXED. CM SPOKE WITH PT REGARDING OP PULM REHAB HE INDICATED HE HAD ATTEMPTED TO DO IT HERE IN THE PAST AND THEY TOLD HIM HE HAD TO STOP SMOKING 2 MONTH PRIOR TO STARTING AND PT COULDN'T COMMIT TO THAT PREVIOUSLY. PT HAS THE INFO TO CONTACT THEM AND INITIATE POSSIBLE SERVICES IN THE FUTURE. PT HAS TRANSPORT HOME THIS DAY. NO OTHER CM INTERVENTION INDICATED. CASE CLOSED.
--- NOTE | 2021-03-04 14:41 | NUR ---
Assumed pt care this am, vs stable. Very anxious about O2 sats, wants to use O2 24/7. Seen by MD and RT for rest exer oxyhmentry test. POC followed with no signs or verbalizations of distress noted. 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
== END 2021-03-04 15:34 | disposition home health service (06) | DRG 189 ==
LOC: ER 21:41 → 4W 02-28 01:50 → EROBS 02-28 01:50 → 4W 02-28 03:07
PROVIDERS: Emergency Medicine; Hospitalist; Internal Medicine Pulmonary Disease; Nurse Practitioner Family; ADMIT Hospitalist; ATTEND Hospitalist
PROC: 5A09357 Assistance with Respiratory Ventilation, Less than 24 Consecutive Hours, Continuous Positive Airway Pressure (ICD-10-PCS; principal; 2021-02-28)
PROC: 5A09357 Assistance with Respiratory Ventilation, Less than 24 Consecutive Hours, Continuous Positive Airway Pressure (ICD-10-PCS; 2021-03-02)
PROC: 5A09357 Assistance with Respiratory Ventilation, Less than 24 Consecutive Hours, Continuous Positive Airway Pressure (ICD-10-PCS; 2021-03-03)
PROC: 5A09357 Assistance with Respiratory Ventilation, Less than 24 Consecutive Hours, Continuous Positive Airway Pressure (ICD-10-PCS; 2021-03-04)
DX: J96.21 Acute and chronic respiratory failure with hypoxia (principal); R65.11 Systemic inflammatory response syndrome (SIRS) of non-infectious origin with acute organ dysfunction; J44.1 Chronic obstructive pulmonary disease with (acute) exacerbation; M35.1 Other overlap syndromes; R78.81 Bacteremia; Z68.41 Body mass index [BMI] 40.0-44.9, adult; Z20.822 Contact with and (suspected) exposure to COVID-19; G47.33 Obstructive sleep apnea (adult) (pediatric); I10 Essential (primary) hypertension; Z96.641 Presence of right artificial hip joint; K21.9 Gastro-esophageal reflux disease without esophagitis; G89.29 Other chronic pain; M54.9 Dorsalgia, unspecified; E66.01 Morbid (severe) obesity due to excess calories; F41.9 Anxiety disorder, unspecified; M54.12 Radiculopathy, cervical region; B95.7 Other staphylococcus as the cause of diseases classified elsewhere; M54.16 Radiculopathy, lumbar region; M19.90 Unspecified osteoarthritis, unspecified site; Z71.6 Tobacco abuse counseling; Z86.711 Personal history of pulmonary embolism; Z90.49 Acquired absence of other specified parts of digestive tract
CPT/HCPCS: 10045; 10047

== ENCOUNTER → 2021-04-10 | Outpatient (CLI) | payer OTHER ==
[~2021-04-10] VITALS: Ht 162.6 cm; Wt 114.0 kg
[~2021-04-10] MED LIST changes: +CEFDINIR300 MG PO; +FUROSEMIDE 20 M20 MG PO; +LEXAPRO 10 MG T10 M1 PO; +NEURONTIN100 MG PO; +NYSTATIN100000 UNI PO; +PREDNISONE 10 M10 M1 PO; +SEROQUEL 25 MG25 MG PO
[2021-04-10 08:21] VITALS: BP 161/96
--- NOTE | 2021-04-10 08:26 | NUR ---
Pain Clinic Assessment: 1. History of Osteoarthritis: BILAT HIPS BACK History of Rheumatoid Arthritis: NO 2. Height: 5 ft. 4 in. 162.6 cm. Weight: 251.4 lb. oz. 114.035 kg. Patient's BMI: 43.1 3. Vital Signs: BP: 161/96 Pulse: 114 Resp: 18 Temp: 02 Sat: 94 ECG Mon: 4. Pain Intensity: 4 5. Fall Risk: Dizziness: N Needs help standing or walking: N Fallen in the last 3 months: N Fall risk comments: FELL 2 MONTHS AGO DID NOT SEEK MEDICAL 6. Patient on Blood Thinner: None 7. History of Hypertension: Y 8. Opioid Therapy greater than 6 weeks: Y Opiate Contract Signed: 09/16/17 9. Risk Assessment Tool Provided: LOW-0 10. Functional Assessment Tool: 11. Recreational Drug Use: Never Drug Type: Tobacco Use: Current Some Day Smoker Tobacco Type: Cigarettes Amount or Packs/day: 3/DAY How Many Years: Alcohol Use: Yes Frequency: Daily Quant: WINE NIGHTLY
== END ==
LOC: PAIN 04-08 10:06
PROVIDERS: ATTEND Anesthesiology Pain Medicine
DX: M54.16 Radiculopathy, lumbar region (principal); M54.12 Radiculopathy, cervical region; E66.01 Morbid (severe) obesity due to excess calories; G47.33 Obstructive sleep apnea (adult) (pediatric); J44.9 Chronic obstructive pulmonary disease, unspecified; K21.9 Gastro-esophageal reflux disease without esophagitis; I10 Essential (primary) hypertension; F17.200 Nicotine dependence, unspecified, uncomplicated; Z79.891 Long term (current) use of opiate analgesic; Z79.82 Long term (current) use of aspirin; Z96.641 Presence of right artificial hip joint; Z87.891 Personal history of nicotine dependence; Z72.89 Other problems related to lifestyle

== ENCOUNTER → 2021-05-08 | Outpatient (CLI) | payer OTHER ==
[~2021-05-08] VITALS: Ht 162.6 cm; Wt 114.4 kg
[~2021-05-08] MED LIST changes: +LYRICA100 MG PO
[2021-05-08 09:01] VITALS: BP 158/104
--- NOTE | 2021-05-08 09:09 | NUR ---
Pain Clinic Assessment: 1. History of Osteoarthritis: BILAT HIPS BACK History of Rheumatoid Arthritis: NO 2. Height: 5 ft. 4 in. 162.6 cm. Weight: 252.2 lb. oz. 114.397 kg. Patient's BMI: 43.3 3. Vital Signs: BP: 158/104 Pulse: 98 Resp: 28 Temp: 02 Sat: 94 ECG Mon: 4. Pain Intensity: 5 5. Fall Risk: Dizziness: N Needs help standing or walking: N Fallen in the last 3 months: N Fall risk comments: FELL 2 MONTHS AGO DID NOT SEEK MEDICAL 6. Patient on Blood Thinner: None 7. History of Hypertension: Y 8. Opioid Therapy greater than 6 weeks: Y Opiate Contract Signed: 09/16/17 9. Risk Assessment Tool Provided: LOW-0 10. Functional Assessment Tool: 11. Recreational Drug Use: Never Drug Type: Tobacco Use: Current Some Day Smoker Tobacco Type: Cigarettes Amount or Packs/day: 2 CIGS/DAY How Many Years: 50 Alcohol Use: Yes Frequency: Daily Quant: 1-2 GLASSES/DAY
== END ==
LOC: PAIN 07:07
PROVIDERS: ATTEND Clinical Nurse Specialist Adult Health
DX: M54.16 Radiculopathy, lumbar region (principal); J44.9 Chronic obstructive pulmonary disease, unspecified; I10 Essential (primary) hypertension; F17.209 Nicotine dependence, unspecified, with unspecified nicotine-induced disorders; Z96.641 Presence of right artificial hip joint; Z79.891 Long term (current) use of opiate analgesic; Z79.899 Other long term (current) drug therapy; Z87.891 Personal history of nicotine dependence

== ENCOUNTER → 2021-05-26 | Outpatient (CLI) | payer OTHER | LOC: SJCVC 10:00 | PROVIDERS: ATTEND Internal Medicine | DX: I11.0 Hypertensive heart disease with heart failure (principal); I50.32 Chronic diastolic (congestive) heart failure; E78.5 Hyperlipidemia, unspecified; J44.1 Chronic obstructive pulmonary disease with (acute) exacerbation; G47.33 Obstructive sleep apnea (adult) (pediatric); R00.0 Tachycardia, unspecified; E66.9 Obesity, unspecified; M06.9 Rheumatoid arthritis, unspecified; M19.90 Unspecified osteoarthritis, unspecified site; F17.210 Nicotine dependence, cigarettes, uncomplicated; Z99.89 Dependence on other enabling machines and devices; Z90.49 Acquired absence of other specified parts of digestive tract; Z79.82 Long term (current) use of aspirin; Z79.899 Other long term (current) drug therapy; Z86.711 Personal history of pulmonary embolism ==

== ENCOUNTER → 2021-06-05 | Outpatient (CLI) | payer OTHER | LOC: SJCVC 15:31 | PROVIDERS: ATTEND Internal Medicine | DX: I50.32 Chronic diastolic (congestive) heart failure (principal); I11.0 Hypertensive heart disease with heart failure; J44.9 Chronic obstructive pulmonary disease, unspecified; G47.33 Obstructive sleep apnea (adult) (pediatric) ==

== ENCOUNTER 2021-06-21 01:10 | Emergency (ER) | payer OTHER ==
[~2021-06-21] VITALS: Ht 162.6 cm; Wt 112.0 kg
--- NOTE | ~2021-06-21 | EMS ---
[address] [address] EMS Patient Care Report Name: RBYSON OLIVA Room #: DEP CRISTI Sharma#: [id number] Admission: 06/21/21 Attend Phys: Discharge: 06/21/21 Date of : 52 Report #: [id number] THIS REPORT FOR: //name// Report Transmitted: 06/23/2021 15:08 EMS Care Summary [place], [place] Incident [id number] @ 06/21/2021 00:26 Incident Location [address] [place] [id number] Patient BRYSON OLIVA Male, 70 Years 1950 Patient Address [address] [address] Patient History Chronic Obstructive Pulmonary Disease (COPD),Hypertension (HTN),Disc Degenerations, Patient Allergies No known allergies, Patient Medications Hydromorphone, Furosemide, Aspirin, Protonix, Tizanidine, Potassium, Lyrica, Seroquel, Lexapro, Chief Complaint copd Disposition Transported No Lights/[place] Dispatch Reason Breathing Problem Transported To [facility] Narrative Pt was found standing upright walking to the ambulance. Pt stated he had a history of COPD and today he didn't feel like his albuterol treatments were [address] [address] EMS Patient Care Report Name: BRYSON OLIVA JR Room #: DEP Zachary#: [id number] Admission: 06/21/21 Attend Phys: Discharge: 06/21/21 Date of : 52 Report #: [id number] lasting as long as they typically do. Pt stated an albuterol treatment will typically last 4-6 hours and today he is feeling like he needs a treatment more frequent. Initial Vitals @00:51P: 82,R: 20,BP: 124/90,Pain: 0/10,GCS: 15,SpO2: 99,Revised Trauma: 12, @00:38P: 99,R: 20,BP: 153/115,Pain: 0/10,GCS: 15,CO: 4,SpO2: 98,Revised Trauma: 12, Assessments @00:35MENTAL:Place Oriented,Time Oriented,Event Oriented,Person Oriented,SKIN:HEENT:LUNG SOUNDS:ABDOMEN:PELVIS//GI:EXTREMITIES:PULSE:NEURO:No Abnormalities,@01:26MENTAL:Time Oriented,Place Oriented,Person Oriented,Event Oriented,SKIN:HEENT:LUNG SOUNDS:ABDOMEN:PELVIS//GI:EXTREMITIES:PULSE:NEURO:No Abnormalities, Impression Chronic Obstructive Pulmonary Disease (COPD) Procedures @00:35ALS AssessmentResponse: ImprovedSucceeded Timeline 00:24,Call Received 00:24,Dispatch Notified 00:26,Dispatched 00:27,En Route 00:33,On Scene 00:35,At Patient 00:35,ALS Assessment,Response: ImprovedSucceeded, 00:38,BP: 153/115 M,PULSE: 99,RR: 20 R,SPO2: 98 Ox,ETCO2: ,BG: ,PAIN: 0,GCS: 15, 00:47,Depart Scene 00:51,BP: 124/90 M,PULSE: 82,RR: 20 R,SPO2: 99 Ox,ETCO2: ,BG: ,PAIN: 0,GCS: 15, 01:12,At Destination 01:28,Call Closed Disclaimer v1.1 Copyright 2020 [employer] This EMS Care Summary contains data elements from the applicable legal record (which may be displayed differently). It is designed to provide pertinent information for the following purposes: continuity of care, clinical quality, and state data reporting. The complete legal record is available to ED staff and administrators of the receiving hospital in [employer]'s Patient Tracker. All data is provided "as is."
[2021-06-21 01:36] LABS: BASOPHILS 0.9 % (0.0-2.0); EOSINOPHILS 2.4 % (0.0-3.0); HEMATOCRIT 37.5 % (42.0-52.0); HEMOGLOBIN 12.3 gm/dL (14.0-18.0); LYMPHOCYTES 19.7 % (24.0-44.0); MCH 30.9 pg (26.0-34.0); MCHC 32.9 g/dL (28.0-37.0); MCV 93.9 fL (80.0-100.0); MONOCYTES 11.3 % (1.0-8.0); PLATELET COUNT 157 thou/uL (150-400); POLYS 65.7 % (36.0-66.0); RBC 3.99 mil/uL (4.50-6.00); RDW 13.5 % (10.5-14.5); WBC 6.1 thou/uL (4.0-11.0)
[2021-06-21 01:42] LABS: ANION GAP 10 mmol/L (7-16); BUN 8 mg/dL (7-18); CALCIUM 8.8 mg/dL (8.5-10.1); CHLORIDE 105 mmol/L (98-107); CO2 26 mmol/L (21-32); CREATININE 1.1 mg/dL (0.7-1.3); GLUCOSE 83 mg/dL (74-106); POTASSIUM 3.9 mmol/L (3.5-5.1); SODIUM 141 mmol/L (136-145)
[2021-06-21 01:51] LABS: ALBUMIN 3.5 g/dL (3.4-5.0); LIPASE 83 U/L (73-393); SGOT 21 U/L (15-37); SGPT 22 U/L (30-65); TOTAL BILIRUBIN 0.6 mg/dL (0.2-1.0); TOTAL PROTEIN 7.1 g/dL (6.4-8.2); TROPONIN-I <0.06 ng/mL (<0.06)
[2021-06-21] MEDS ORDERED: PREDNISONE 10 M10 MG PO (06:10)
[2021-06-21] MEDS ORDERED: DOXYCYCLINE 10100 MG PO (06:10)
[2021-06-21 06:49] VITALS: BP 132/93
--- NOTE | 2021-06-21 09:23 | EKG ---
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1950 Requested By: Jozef Cooney Order Number: [id number] MD: Royal Ahn Measurements Intervals [place] Rate: 64 P: 43 VA: 148 QRS: -15 QRSD: 91 T: 17 QT: 396 QTc: 409 Interpretive Statements Sinus rhythm Borderline left axis deviation Low voltage, precordial leads Compared to ECG 02/27/2021 21:55:51 Sinus tachycardia no longer present Electronically Signed On 06-21-2021 9:22:53 CDT by Royal Ahn [email or web address] <ELECTRONICALLY SIGNED> By: Royal Ahn MD, [facility] 06/21/21 0922 0136 5 Royal Ahn MD, [facility] /EPI
== END 2021-06-21 06:52 | disposition home or self-care (01) ==
LOC: ER 01:10
PROVIDERS: Student in an Organized Health Care Education/Training Program
DX: J44.1 Chronic obstructive pulmonary disease with (acute) exacerbation (principal); E66.01 Morbid (severe) obesity due to excess calories; K21.9 Gastro-esophageal reflux disease without esophagitis; I10 Essential (primary) hypertension; F17.210 Nicotine dependence, cigarettes, uncomplicated; Z79.2 Long term (current) use of antibiotics; Z79.82 Long term (current) use of aspirin; Z79.899 Other long term (current) drug therapy; Z20.822 Contact with and (suspected) exposure to COVID-19; Z68.41 Body mass index [BMI] 40.0-44.9, adult

== ENCOUNTER → 2021-07-10 | Outpatient (CLI) | payer OTHER ==
[~2021-07-10] VITALS: Ht 162.6 cm; Wt 109.3 kg
[~2021-07-10] MED LIST changes: +PREDNISONE 10 M10 MG PO
[2021-07-10 11:03] VITALS: BP 131/83
--- NOTE | 2021-07-10 11:25 | NUR ---
Pain Clinic Assessment: 1. History of Osteoarthritis: BILAT HIPS BACK History of Rheumatoid Arthritis: NO 2. Height: 5 ft. 4 in. 162.6 cm. Weight: 241.0 lb. oz. 109.317 kg. Patient's BMI: 41.3 3. Vital Signs: BP: 131/83 Pulse: 108 Resp: 22 Temp: 02 Sat: 100 ECG Mon: 4. Pain Intensity: 5 TO 6 5. Fall Risk: Dizziness: N Needs help standing or walking: Y Fallen in the last 3 months: N Fall risk comments: FELL 2 MONTHS AGO DID NOT SEEK MEDICAL 6. Patient on Blood Thinner: None 7. History of Hypertension: Y 8. Opioid Therapy greater than 6 weeks: Y Opiate Contract Signed: 09/16/17 9. Risk Assessment Tool Provided: LOW-0 10. Functional Assessment Tool: 11. Recreational Drug Use: Never Drug Type: Tobacco Use: Current Some Day Smoker Tobacco Type: Cigarettes Amount or Packs/day: 3 TO 5/DAY How Many Years: Alcohol Use: Yes Frequency: Daily Quant: 2
== END ==
LOC: PAIN 06-17 10:32
PROVIDERS: ATTEND Anesthesiology Pain Medicine
DX: M54.16 Radiculopathy, lumbar region (principal); M54.12 Radiculopathy, cervical region; I10 Essential (primary) hypertension; J44.9 Chronic obstructive pulmonary disease, unspecified; Z86.19 Personal history of other infectious and parasitic diseases; Z87.891 Personal history of nicotine dependence

== ENCOUNTER → 2021-08-21 | Outpatient (CLI) | payer OTHER ==
[~2021-08-21] VITALS: Ht 162.6 cm; Wt 109.9 kg
[2021-08-21 11:01] VITALS: BP 114/60
--- NOTE | 2021-08-21 11:26 | NUR ---
Pain Clinic Assessment: 1. History of Osteoarthritis: BILAT HIPS BACK BILAT KNEES (WORSE ON R) History of Rheumatoid Arthritis: NO 2. Height: 5 ft. 4 in. 162.6 cm. Weight: 242.2 lb. oz. 109.861 kg. Patient's BMI: 41.6 3. Vital Signs: BP: 114/60 Pulse: 113 Resp: 22 Temp: 02 Sat: 97 ECG Mon: 4. Pain Intensity: 3 TO 6 5. Fall Risk: Dizziness: N Needs help standing or walking: Y Fallen in the last 3 months: Y Fall risk comments: FELL 2 MONTHS AGO DID NOT SEEK MEDICAL 6. Patient on Blood Thinner: None 7. History of Hypertension: Y 8. Opioid Therapy greater than 6 weeks: Y Opiate Contract Signed: 09/16/17 9. Risk Assessment Tool Provided: LOW-0 10. Functional Assessment Tool: 11. Recreational Drug Use: Never Drug Type: Tobacco Use: Current Some Day Smoker Tobacco Type: Cigarettes Amount or Packs/day: 7/DAY How Many Years: Alcohol Use: Yes Frequency: Daily Quant: 2 WINE
== END | disposition home or self-care (01) ==
LOC: PAIN 06:58
PROVIDERS: ATTEND Anesthesiology Pain Medicine
DX: M25.561 Pain in right knee (principal); G89.29 Other chronic pain; M54.16 Radiculopathy, lumbar region; M54.12 Radiculopathy, cervical region; I10 Essential (primary) hypertension; J44.9 Chronic obstructive pulmonary disease, unspecified; K21.9 Gastro-esophageal reflux disease without esophagitis; G47.33 Obstructive sleep apnea (adult) (pediatric); Z96.641 Presence of right artificial hip joint; E66.01 Morbid (severe) obesity due to excess calories; Z98.890 Other specified postprocedural states; Z79.899 Other long term (current) drug therapy; Z90.49 Acquired absence of other specified parts of digestive tract

== ENCOUNTER → 2021-08-28 | Outpatient (CLI) | payer OTHER | LOC: SJCVC 14:37 | PROVIDERS: ATTEND Internal Medicine | DX: R00.0 Tachycardia, unspecified (principal); I11.0 Hypertensive heart disease with heart failure; I50.32 Chronic diastolic (congestive) heart failure; E78.5 Hyperlipidemia, unspecified; J44.1 Chronic obstructive pulmonary disease with (acute) exacerbation; G47.33 Obstructive sleep apnea (adult) (pediatric); F17.210 Nicotine dependence, cigarettes, uncomplicated; Z72.89 Other problems related to lifestyle; Z99.89 Dependence on other enabling machines and devices; Z86.711 Personal history of pulmonary embolism; Z79.899 Other long term (current) drug therapy; Z79.82 Long term (current) use of aspirin ==

== ENCOUNTER 2021-09-19 23:44 | Inpatient (IN) | payer OTHER ==
[~2021-09-19] VITALS: Ht 162.6 cm; Wt 108.9 kg
--- NOTE | ~2021-09-19 | EMS ---
[address] [address] EMS Patient Care Report Name: BRYSON OLIVA JR Room #: 363-P ADM IN M.R.#: [id number] Admission: 09/20/21 Attend Phys: Wero Kothari MD Discharge: Date of : 52 Report #: [id number] THIS REPORT FOR: //name// Report Transmitted: 09/21/2021 14:37 EMS Care Summary [place], [place] Incident [id number] @ 09/19/2021 23:03 Incident Location [address] [place] [address] Patient BRYSON OLIVA Male, 70 Years 1950 Patient Address Patient History Chronic Obstructive Pulmonary Disease (COPD), Patient Allergies No known allergies, Patient Medications Albuterol, Chief Complaint RESPIRATORY DISTRESS Disposition Transported No Lights/[place] Dispatch Reason Breathing Problem Transported To [facility] Narrative EMS ARRIVED ON SCENE AT THE ADDRESS ABOVE. EMS MADE PT CONTACT OUTSIDE OF RESIDENCE, WALKING TO AMBULANCE, AND IN VISBILE DIFFICULTLY BREATHING. PT WAS PLACED ON 10 LPM NRB AND SECURED WITH SEATBELTS. PT STATED THAT HE TOOK A BREATHING TREATMENT APPROX. 15 MINUTES PRIOR TO EMS ARRIVAL WITH NO RELIEF. PT HAS HX OF LUNG INFECTIONS AND COPD. AFTER BEING PLACED ON 02, PT IMPROVED IN CONDITION. VITAL SIGNS WERE MONITORED THROUGHOUT TRANSPORT [place] [address] EMS Patient Care Report Name: BRYSON OLIVA Room #: 363-P [facility] IN [facility]#: [id number] Admission: 09/20/21 Attend Phys: Wero Kothari MD Discharge: Date of : 52 Report #: [id number] MENTAL OR PHYSICAL STATUS. TRANSFER OF CARE WAS GIVEN TO RN AT [facility]. Initial Vitals @23:22P: 109,R: 18,BP: 128/90,Pain: 0/10,GCS: 15,CO: 5,SpO2: 100,Revised Trauma: 12, @23:13P: 105,R: 22,BP: 151/98,GCS: 15,CO: 1,SpO2: 84,Revised Trauma: 12, @23:30P: 108,R: 18,BP: 136/94,Pain: 0/10,GCS: 15,SpO2: 96,Revised Trauma: 12, @23:38P: 102,R: 18,BP: 140/98,Pain: 0/10,GCS: 15,SpO2: 96,Revised Trauma: 12, Assessments @23:10MENTAL:Person Oriented,Time Oriented,Place Oriented,Event Oriented,SKIN:HEENT:Head/Face: No Abnormalities,Neck/Airway: No Abnormalities,LUNG SOUNDS:ABDOMEN:PELVIS//GI:No Abnormalities,EXTREMITIES:Left Arm: No Abnormalities,Right Arm: No Abnormalities,Left Leg: No Abnormalities,Right Leg: No Abnormalities,PULSE:NEURO:No Abnormalities, Impression Acute Respiratory Distress (Dyspnea) Procedures @23:10 ALS Assessment Response: UnchangedSucceeded @23:11 Oxygen FlowRate: 10 Device: Non Re-breather Mask (NRB) Response: ImprovedSucceeded Timeline 23:02,Call Received 23:02,Dispatch Notified 23:03,Dispatched 23:04,En Route 23:09,On Scene 23:10,At Patient 23:10,ALS Assessment,Response: UnchangedSucceeded, 23:11,Oxygen FlowRate: 10 Device: Non Re-breather Mask (NRB) Response: ImprovedSucceeded, 23:13,BP: 151/98 M,PULSE: 105,RR: 22 R,SPO2: 84 Ox,ETCO2: ,BG: ,PAIN: ,GCS: 15, 23:16,Depart Scene 23:22,BP: 128/90 M,PULSE: 109,RR: 18 R,SPO2: 100 Ox,ETCO2: ,BG: ,PAIN: 0,GCS: 15, 23:30,BP: 136/94 M,PULSE: 108,RR: 18 R,SPO2: 96 Ox,ETCO2: ,BG: ,PAIN: 0,GCS: 15, 23:38,BP: 140/98 M,PULSE: 102,RR: 18 R,SPO2: 96 Ox,ETCO2: ,BG: ,PAIN: 0,GCS: 15, 23:39,At Destination 23:57,Call Closed [address] [address] EMS Patient Care Report Name: BRYSON OLIVA Room #: 363-P [facility] IN ..#: [id number] Admission: 09/20/21 Attend Phys: Wero Kothari MD Discharge: Date of : 52 Report #: [id number] Disclaimer v1.1 Copyright 202 [employer] This EMS Care Summary contains data elements from the applicable legal record (which may be displayed differently). It is designed to provide pertinent information for the following purposes: continuity of care, clinical quality, and state data reporting. The complete legal record is available to ED staff and administrators of the receiving hospital in [employer]'s Patient Tracker. All data is provided "as is."
[2021-09-19 23:55] VITALS: BP 166/79
[2021-09-20 00:56] LABS: ABSOLUTE NEUTROPHILS 3.5 thou/uL (1.4-8.2); BASOPHILS 0.6 % (0.0-2.0); EOSINOPHILS 2.9 % (0.0-3.0); HEMATOCRIT 40.5 % (42.0-52.0); HEMOGLOBIN 12.9 gm/dL (14.0-18.0); LYMPHOCYTES 14.9 % (24.0-44.0); MCH 31.4 pg (26.0-34.0); MCHC 31.9 g/dL (28.0-37.0); MCV 98.5 fL (80.0-100.0); PLATELET COUNT 156 thou/uL (150-400); POLYS 65.6 % (36.0-66.0); RBC 4.11 mil/uL (4.50-6.00); RDW 13.6 % (10.5-14.5); WBC 5.4 thou/uL (4.0-11.0)
[2021-09-20 00:57] LABS: CALCIUM 8.7 mg/dL (8.5-10.1); POTASSIUM 4.3 mmol/L (3.5-5.1)
--- NOTE | 2021-09-20 01:45 | NUR ---
PT PLACED ON OXYGEN AT 2LPM DUE TO DESATURATION INTO THE HIGH 80'S; SATS NOW 99%.
[2021-09-20 06:05] VITALS: BP 147/87
[2021-09-20 07:15] VITALS: BP 157/105
[2021-09-20 08:02] VITALS: BP 140/91
[2021-09-20 16:38] VITALS: BP 145/89
[2021-09-20 20:41] VITALS: BP 116/85
[2021-09-21 03:17] LABS: HEMATOCRIT 37.6 % (42.0-52.0); MCH 31.1 pg (26.0-34.0); MCV 97.2 fL (80.0-100.0); RBC 3.87 mil/uL (4.50-6.00); RDW 13.5 % (10.5-14.5)
[2021-09-21 03:30] LABS: CALCIUM 8.7 mg/dL (8.5-10.1); CREATININE 1.2 mg/dL (0.7-1.3); POTASSIUM 4.2 mmol/L (3.5-5.1)
[2021-09-21 05:33] VITALS: BP 23/65
--- NOTE | 2021-09-21 07:27 | EKG ---
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1950 Requested By: Bipin Silver Order Number: [id number] MD: Royal Ahn Measurements Intervals [place] Rate: 106 P: 79 SD: 145 QRS: -7 QRSD: 96 T: 35 QT: 339 QTc: 451 Interpretive Statements Sinus tachycardia Multiform ventricular premature complexes Low voltage, precordial leads Compared to ECG 06/21/2021 01:36:16 Ventricular premature complex(es) now present Sinus rhythm no longer present Electronically Signed On 09-21-2021 7:27:15 CDT by Royal Ahn [email or web address] <ELECTRONICALLY SIGNED> By: Royal Ahn MD, FACC 09/21/21 0727 Royal Ahn MD, FAC /EPI
[2021-09-21 07:50] VITALS: BP 123/67
--- NOTE | 2021-09-21 08:37 | NUR ---
progress pt up ad francesco with walker voiding qs, vss. iv to left chest flushes but painful, iv therapy consult placed. reports pain to lower back from spinal stenosis iv morphine given x 1 with effect pt slept throughout night. cpap applied by rt pt tolerated well. lower extremeties with 3 + edema pt states it has subsided a little. continue poc.
[2021-09-21 11:44] VITALS: BP 148/96
[2021-09-21 14:45] VITALS: BP 130/81
--- NOTE | 2021-09-21 19:38 | NUR ---
RN ASSUMED PT'S CARE AT 0700-1900PM, PT IS A&OX4, PT IS ON O2 2L/MIN/NC AT DAY TIME, PT IS ON BIPAP AT NIGH TIME, PT 'S VS AND O2SAT ARE STABLE AT DAY SHIFT.
[2021-09-21 20:00] VITALS: BP 151/88
--- NOTE | 2021-09-21 23:24 | NUR ---
PT WATCHING FOOTBALL. O2 PERN NC. OBESE. AMBULATES WITH CANE. PT REQUESTED PRN FOR SLEEP AND MUSCLE RELAXER AT HS. TALKATIVE AND HAPPY.
[2021-09-22 04:00] VITALS: BP 147/70
[2021-09-22 08:05] VITALS: BP 139/60
[2021-09-22 11:43] VITALS: BP 129/74
--- NOTE | 2021-09-22 11:47 | NUR ---
INITIAL ASSESSMENT: SW reviewed chart and spoke with nursing and attending physician. Pt was admitted from home due to PE. Pt is on IV lasix and IV steroids. Pt to have echo today. SW met with pt at bedside. Introduced role of SW. Pt is alert/orientated x 4. Pt reports he lives at home with his . Prior to admission, pt was independent with ADLs. Pt does have a cane fi needed. Pt has a home cpap machine and uses O2 with cpap at HS. Pt's cpap machine is from [facility]. Pt has been to and [facility] in the past. Pt has used [facility]. Pt's PCP is Dr. Parker. Plan is for pt to discharge home when medically stable. SW is following to assist as needed with discharge planning.
[2021-09-22 15:20] VITALS: BP 152/87
[2021-09-22 19:07] VITALS: BP 146/75
--- NOTE | 2021-09-22 19:48 | NUR ---
RN ASSUMED PT'S CARE AT 0700-1900PM, PT IS A&OX4, PT IS ON O2 2L/MIN/NC, PT'S VS ARE STABLE, PT DENIES SOB AT DAY SHIFT.
--- NOTE | 2021-09-22 21:06 | NUR ---
PT SITTING UP ON EDGE OF BED WATCHING TV. O2 PER NC. AMBULATES WITH CANE STEADY. PT VERBALIZED WANTING DC TOMORROW AND FLU SHOT. CPAP AT HS. DECLINED HS SNACK.
[2021-09-23 04:38] VITALS: BP 143/72
[2021-09-23 07:32] VITALS: BP 144/64
--- NOTE | 2021-09-23 07:34 | NUR ---
Took over care of pt. around 0100. Slept well with CPAP on. Once he woke up , c/o back pain which he said he's had for years. He requested for morphine and given to him with some relief. Voided per urinal. Denies any other concern. Making some progress towards care plan goals.
--- NOTE | 2021-09-23 10:52 | 2DMMODE ---
[facility] [place] [place] [address] 2 D/M-MODE ECHOCARDIOGRAM Name: BRYSON OLIVA Room #: 363-P ADM IN ..#: [id number] Admission: 09/20/21 Attend Phys: Wero Kothari MD Discharge: Date of : 52 Report #: [id number] THIS REPORT FOR: cc: Mitesh Parker James A. DO Lundgren, Craig H. MD [facility] ~ APPROVED REPORT Study performed: 09/23/2021 10:02:37 EXAM: Comprehensive 2D, Doppler, and color-flow Echocardiogram Patient Location: Bedside Room #: 363 Status: routine BSA: 2.11 HR: 97 bpm BP: 144/64 mmHg Rhythm: NSR Other Information Study Quality: Adequate Indications COPD Dyspnea 2D Dimensions IVSd: 10.91 (7-11mm) LVOT Diam: 23.77 (18-24mm) LVDd: 46.45 mm PWd: 9.47 (7-11mm) Ascending Ao: 36.54 (22-36mm) LVDs: 34.14 (25-40mm) Left Atrium: 37.31 (27-40mm) Aortic Root: 33.79 mm IVC: 15.00 mm Aortic Valve AoV Peak Carlitos.: 1.21 m/s AO Peak Gr.: 6.33 mmHg LVOT Max P.21 mmHg LVOT Max V: 1.03 m/s DAYSI Vmax: 3.77 cm2 Mitral Valve E/A Ratio: 0.7 MV Decel. Time: 263.35 ms MV E Max Carlitos.: 0.61 m/s [facility] [address] [address] 2 D/M-MODE ECHOCARDIOGRAM Name: BRYSON OLIVA Room #: 363-P [facility] IN [facility]#: [id number] Admission: 09/20/21 Attend Phys: Wero Kothari MD Discharge: Date of : 52 Report #: [id number] MV A Carlitos.: 0.88 m/s MV PHT: 76.37 ms IVRT: 110.73 ms Pulmonary Valve PV Peak Carlitos.: 1.17 m/s PV Peak Gr.: 5.49 mmHg Pulmonary Vein P Vein S: 0.52 m/s P Vein A: 0.29 m/s P Vein D: 0.46 m/s P Vein A Dur.: 129.2 msec P Vein S/D Ratio: 1.13 Left Ventricle The left ventricle is normal size. There is normal LV segmental wall motion. There is normal left ventricular wall thickness. Left ventricular systolic function is normal. The left ventricular ejection fraction is within the normal range. LVEF is 60-65%. Mild diastolic dysfunction Right Ventricle The right ventricle is normal size. The right ventricular systolic function is normal. Atria The left atrium size is normal. The right atrium size is normal. Aortic Valve The aortic valve is normal in structure. No aortic regurgitation is present. There is no aortic valvular stenosis. Mitral Valve The mitral valve is normal in structure. There is no mitral valve regurgitation noted. No evidence of mitral valve stenosis. Tricuspid Valve The tricuspid valve is normal in structure. There is no tricuspid valve regurgitation noted. Pulmonic Valve The pulmonary valve is normal in structure. There is no pulmonic valvular regurgitation. Great Vessels The aortic root is normal in size. IVC is normal in size and collapses >50% with inspiration. [facility] [address] [place] [address] 2 D/M-MODE ECHOCARDIOGRAM Name: BRYSON OLIVA Room #: 363-P [facility] IN .R.#: [id number] Admission: 09/20/21 Attend Phys: Wero Kothari MD Discharge: Date of : 52 Report #: [id number] Pericardium There is no pericardial effusion. <Conclusion> Left ventricular systolic function is normal. There is normal LV segmental wall motion. LVEF is 60-65%. Mild diastolic dysfunction The aortic valve is normal in structure. No aortic regurgitation or stenosis The mitral valve is normal in structure. No mitral valve regurgitation. Pulmonary artery pressure could not be reliably ascertained There is no pericardial effusion. <ELECTRONICALLY SIGNED> By: Anirudh Cardona MD, [facility] 09/23/21 1052 51 51 Anirudh Cardona MD, [facility] /INF
[2021-09-23 11:34] VITALS: BP 138/94
[2021-09-23] MEDS ORDERED: AZITHROMYCIN500 MG PO (13:13)
[2021-09-23] MEDS ORDERED: PREDNISONE 20 M20 MG PO (13:13)
[2021-09-23] MEDS ORDERED: FUROSEMIDE 40 M40 MG PO (13:13)
--- NOTE | 2021-09-23 14:08 | NUR ---
MELCHOR reviewed chart and spoke with nursing and attending physician. Pt to have echo today. Discharge home today is pending results of echo. Rest/exercise oximetry study ordered. Pt does qualify for home O2. Pt has nocturnal O2 in place through [facility]. MELCHOR faxed testing and script to [facility]. Left message with [facility] intake regarding new order. Plan is for pt to discharge home when medically stable. MELCHOR is following to assist as needed with discharge planning.
[2021-09-23 15:17] VITALS: BP 146/76
[2021-09-23 15:28] VITALS: BP 146/76
--- NOTE | 2021-09-23 19:54 | NUR ---
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
== END 2021-09-23 19:18 | disposition home health service (06) | DRG 291 ==
LOC: ER 23:44 → 3W 09-20 05:26 → EROBS 09-20 05:26 → 3W 09-20 07:22
PROVIDERS: Emergency Medicine; Nurse Practitioner Family; ADMIT Hospitalist; ATTEND Hospitalist
PROC: 5A0935A Assistance with Respiratory Ventilation, Less than 24 Consecutive Hours, High Flow/Velocity Cannula (ICD-10-PCS; principal; 2021-09-20)
PROC: 5A09357 Assistance with Respiratory Ventilation, Less than 24 Consecutive Hours, Continuous Positive Airway Pressure (ICD-10-PCS; 2021-09-21)
PROC: 5A09357 Assistance with Respiratory Ventilation, Less than 24 Consecutive Hours, Continuous Positive Airway Pressure (ICD-10-PCS; 2021-09-22)
PROC: 5A09357 Assistance with Respiratory Ventilation, Less than 24 Consecutive Hours, Continuous Positive Airway Pressure (ICD-10-PCS; 2021-09-23)
DX: I50.33 Acute on chronic diastolic (congestive) heart failure (principal); J96.21 Acute and chronic respiratory failure with hypoxia; J44.1 Chronic obstructive pulmonary disease with (acute) exacerbation; M35.1 Other overlap syndromes; Z68.41 Body mass index [BMI] 40.0-44.9, adult; Z20.822 Contact with and (suspected) exposure to COVID-19; E66.01 Morbid (severe) obesity due to excess calories; G47.33 Obstructive sleep apnea (adult) (pediatric); Z96.641 Presence of right artificial hip joint; K21.9 Gastro-esophageal reflux disease without esophagitis; I10 Essential (primary) hypertension; F17.210 Nicotine dependence, cigarettes, uncomplicated; G89.4 Chronic pain syndrome; J45.909 Unspecified asthma, uncomplicated; M19.90 Unspecified osteoarthritis, unspecified site; M54.16 Radiculopathy, lumbar region; M54.12 Radiculopathy, cervical region; F41.9 Anxiety disorder, unspecified; Z79.82 Long term (current) use of aspirin; Z79.899 Other long term (current) drug therapy; Z86.711 Personal history of pulmonary embolism; Z86.19 Personal history of other infectious and parasitic diseases; Z90.49 Acquired absence of other specified parts of digestive tract; Z23 Encounter for immunization; Z88.8 Allergy status to other drugs, medicaments and biological substances
CPT/HCPCS: 10879

== ENCOUNTER → 2021-12-21 | Outpatient (CLI) | payer OTHER ==
[~2021-12-21] MED LIST changes: +AZITHROMYCIN500 MG PO; +FUROSEMIDE 40 M40 MG PO
== END ==
LOC: SJCVC 14:28
PROVIDERS: ATTEND Internal Medicine
DX: R94.31 Abnormal electrocardiogram [ECG] [EKG] (principal); I21.3 ST elevation (STEMI) myocardial infarction of unspecified site; R00.0 Tachycardia, unspecified; I11.0 Hypertensive heart disease with heart failure; I50.32 Chronic diastolic (congestive) heart failure; E78.5 Hyperlipidemia, unspecified; J44.9 Chronic obstructive pulmonary disease, unspecified; G47.33 Obstructive sleep apnea (adult) (pediatric); Z86.711 Personal history of pulmonary embolism; F41.9 Anxiety disorder, unspecified; J45.909 Unspecified asthma, uncomplicated; E66.9 Obesity, unspecified; M19.90 Unspecified osteoarthritis, unspecified site; M06.9 Rheumatoid arthritis, unspecified; F17.210 Nicotine dependence, cigarettes, uncomplicated; Z86.16 Personal history of COVID-19; Z99.89 Dependence on other enabling machines and devices; Z79.82 Long term (current) use of aspirin; Z79.899 Other long term (current) drug therapy; Z82.79 Family history of other congenital malformations, deformations and chromosomal abnormalities

== ENCOUNTER → 2021-12-21 | Outpatient (CLI) | payer OTHER | LOC: LAB 16:03 | PROVIDERS: ATTEND Internal Medicine Pulmonary Disease | DX: J44.9 Chronic obstructive pulmonary disease, unspecified (principal); J98.4 Other disorders of lung ==

== ENCOUNTER → 2022-01-13 | Outpatient (CLI) | payer OTHER ==
[~2022-01-13] VITALS: Ht 162.6 cm; Wt 110.3 kg
[~2022-01-13] MED LIST changes: +BENAZEPRIL HCL5 MG PO; +CHOLESTYRAMINE L4 GM PO; +DILAUDID 4 MG TA4 MG PO; +GLYCOLAX; +K-TAB ER20 MEQ PO; +LYRICA150 MG PO; +NYSTATIN100000 UNI SW&SWALLOW; -POTASSIUM20 PO; +TORSEMIDE20 MG PO; +VITAMIN D325 MC3 PO; +ZANAFLEX2 M1 PO; +ZINC50 MG PO
[2022-01-13 10:47] VITALS: BP 133/87
--- NOTE | 2022-01-13 11:14 | NUR ---
Pain Clinic Assessment: 1. History of Osteoarthritis: BILAT HIPS BACK BILAT KNEES (WORSE ON R) History of Rheumatoid Arthritis: NO 2. Height: 5 ft. 4 in. 162.6 cm. Weight: 243.2 lb. oz. 110.315 kg. Patient's BMI: 41.7 3. Vital Signs: BP: 133/87 Pulse: 104 Resp: 16 Temp: 02 Sat: 97 ECG Mon: 4. Pain Intensity: 6 5. Fall Risk: Dizziness: N Needs help standing or walking: Y Fallen in the last 3 months: N Fall risk comments: FELL 2 MONTHS AGO DID NOT SEEK MEDICAL 6. Patient on Blood Thinner: None 7. History of Hypertension: Y 8. Opioid Therapy greater than 6 weeks: Y Opiate Contract Signed: 09/16/17 9. Risk Assessment Tool Provided: LOW-0 10. Functional Assessment Tool: 11. Recreational Drug Use: Never Drug Type: Tobacco Use: Current Some Day Smoker Tobacco Type: Cigarettes Amount or Packs/day: 7 /DAY How Many Years: Alcohol Use: Yes Frequency: Daily Quant:
== END ==
LOC: PAIN 12-02 13:50
PROVIDERS: ATTEND Clinical Nurse Specialist Adult Health
DX: M54.17 Radiculopathy, lumbosacral region (principal); I10 Essential (primary) hypertension; M54.12 Radiculopathy, cervical region; G89.29 Other chronic pain; M17.11 Unilateral primary osteoarthritis, right knee; J44.9 Chronic obstructive pulmonary disease, unspecified; Z79.899 Other long term (current) drug therapy